=== PATIENT | male | born 1950 | race Caucasian/White ===

== ENCOUNTER 2020-06-13 10:01 | Outpatient (REF) | payer MEDICARE, SELFPAY ==
[2020-06-13 12:16] LABS: PSA,Total (Free>4and<10) 9.25 ng/mL (0.00-4.00)
[2020-06-14 12:57] LABS: Free Prostate Spec Ag 2.2 ng/mL; Percent Free Prostate Spec Ag 23 % (calc) (>25); Prostate Specific Ag Total 9.5 ng/mL (< OR = 4.0)
== END 2020-06-13 10:02 | disposition home or self-care (01) ==
LOC: HO.HMGCLDS 10:01
PROVIDERS: PCP Internal Medicine; Visit Provider Urology
DX: R97.20 Elevated prostate specific antigen [PSA] (principal); Z12.5 Encounter for screening for malignant neoplasm of prostate
CPT/HCPCS: 84153

== ENCOUNTER → 2020-08-15 13:52 | Outpatient (BNVA) | payer MEDICARE, SELFPAY | PROVIDERS: PCP Internal Medicine; Referring Provider Internal Medicine; Visit Provider Internal Medicine | DX: Z13.89 Encounter for screening for other disorder (principal) | CPT/HCPCS: Q3014 ==

== ENCOUNTER 2020-08-19 12:13 | Outpatient (REF) | payer MEDICARE, SELFPAY ==
[2020-08-19 15:40] LABS: Alanine Aminotransferase 16 U/L (0-40); Albumin Level 4.1 g/dL (3.5-5.0); Alkaline Phosphatase 111 U/L (39-117); Anion Gap 13 (12-20); Aspartate Amino Transferase 19 U/L (5-37); Bilirubin Total 0.8 mg/dL (0.0-1.0); Blood Urea Nitrogen 15 mg/dL (9-16); Calcium 9.2 mg/dL (8.4-10.2); Carbon Dioxide 30 mmol/L (22-29); Chloride 99 mmol/L (96-108); Cholesterol 224 mg/dL; Estimated Glomerular Filt Rate > 60; Glucose Random 136 mg/dL (60-115); HDL Cholesterol 40 mg/dL; LDL Cholesterol Calculated 161 mg/dl; Potassium 4.6 mmol/l (3.3-5.1); Sodium 137 mmol/L (135-145); Total Protein 7.4 g/dL (6.5-8.0); Triglycerides 115 mg/dL
[2020-08-19 15:45] LABS: Creatinine Urine 175.28 mg/dL; Microalbum/Creatinine Ratio Ur 152.8 ug/mg cr
[2020-08-19 16:02] LABS: Estimated Average Glucose 217 mg/dL; Hemoglobin A1c % 9.2 %; Vitamin D 25-OH Total 30.6 ng/mL (>30)
[2020-08-20 17:57] LABS: LDL Cholesterol Direct 178 mg/dL (<100)
[2020-08-25 14:42] LABS: Glutamic acid decarboxylase Ab <5 IU/mL (<5)
[2020-08-26 17:22] LABS: Insulinoma associated 2 aatb <5.4 U/mL (<5.4)
[2020-08-26 21:32] LABS: Islet Cell Antibody Screen NEGATIVE (NEGATIVE)
== END 2020-08-19 12:14 | disposition home or self-care (01) ==
LOC: HO.HMGCLDS 12:13
PROVIDERS: PCP Internal Medicine; Visit Provider Internal Medicine
DX: E11.65 Type 2 diabetes mellitus with hyperglycemia (principal); Z79.4 Long term (current) use of insulin; E55.9 Vitamin D deficiency, unspecified
CPT/HCPCS: 36415; 80053; 80061; 82043; 82306; 83036; 83721; 86255; 86341

== ENCOUNTER 2020-09-04 12:12 | Outpatient (REF) | payer MEDICARE, SELFPAY ==
--- NOTE | 2020-09-04 | XR_ITS ---
EXAMINATION: XR ANKLE, LEFT CLINICAL INFORMATION: Left ankle pain following fall/trauma. COMPARISON: None TECHNIQUE: AP, lateral, and mortise views of the left ankle. FINDINGS: There is minimally displaced oblique fracture lateral malleolus with borderline lateral displacement distal fragment. Ankle mortise is symmetric. The posterior and medial malleolus appear intact. No dislocation. There is prominent medial and lateral soft tissue swelling. Subtalar joint is unremarkable. There is a bulky plantar calcaneal spur. XR/XR ankle LT min 3V IMPRESSION: 1. Fracture lateral malleolus. 2. Medial and lateral ankle swelling. 3. Plantar calcaneal spur.
== END 2020-09-04 12:13 | disposition home or self-care (01) ==
LOC: HO.HMGCX 12:12
PROVIDERS: PCP Internal Medicine; Visit Provider Internal Medicine
DX: S99.912A Unspecified injury of left ankle, initial encounter (principal)
CPT/HCPCS: 73610

== ENCOUNTER → 2020-09-05 09:05 | Outpatient (BNVA) | payer MEDICARE, SELFPAY | PROVIDERS: PCP Internal Medicine; Visit Provider Physician Assistant | DX: S82.832A Other fracture of upper and lower end of left fibula, initial encounter for closed fracture (principal) | CPT/HCPCS: 99202 ==

== ENCOUNTER → 2020-09-11 10:21 | Outpatient (BNVA) | payer MEDICARE, SELFPAY | PROVIDERS: PCP Internal Medicine; Visit Provider Urology | DX: Z13.89 Encounter for screening for other disorder (principal) | CPT/HCPCS: Q3014 ==

== ENCOUNTER → 2020-09-13 08:53 | Outpatient (BNVA) | payer MEDICARE, SELFPAY | PROVIDERS: PCP Internal Medicine; Visit Provider Dietitian, Registered | DX: Z76.89 Persons encountering health services in other specified circumstances (principal) ==

== ENCOUNTER 2020-10-09 08:51 | Outpatient (REF) | payer MEDICARE, SELFPAY ==
--- NOTE | ~2020-10-09 | XR_ITS ---
EXAMINATION: XR ANKLE, LEFT CLINICAL INFORMATION: Follow-up lateral malleolar fracture COMPARISON: Left ankle 09/04/2020 TECHNIQUE: AP, lateral, and mortise views of the left ankle. FINDINGS: There is a slowly healing lateral malleolar fracture with mild soft tissue swelling. No additional fractures seen. The ankle mortise and subtalar joints are normal. There is a small calcaneal heel spur. XR/XR ankle LT min 3V IMPRESSION: Lateral malleolar fracture with minimal callus formation. No displacement. Moderate lateral malleolar soft tissue swelling. Small calcaneal heel spur.
== END 2020-10-09 08:52 | disposition home or self-care (01) ==
LOC: HO.HOSX 08:51
PROVIDERS: Visit Provider Physician Assistant
DX: S82.832D Other fracture of upper and lower end of left fibula, subsequent encounter for closed fracture with routine healing (principal); E11.65 Type 2 diabetes mellitus with hyperglycemia; Z79.4 Long term (current) use of insulin; Z79.899 Other long term (current) drug therapy
CPT/HCPCS: 73610; 82947; 99212

== ENCOUNTER → 2020-10-11 09:27 | Outpatient (BNVA) | payer MEDICARE, SELFPAY | PROVIDERS: PCP Internal Medicine; Visit Provider Dietitian, Registered ==

== ENCOUNTER → 2020-11-22 10:02 | Outpatient (BNVA) | payer MEDICARE, SELFPAY | PROVIDERS: PCP Internal Medicine; Visit Provider Dietitian, Registered ==

== ENCOUNTER 2020-11-22 11:24 | Outpatient (REF) | payer MEDICARE, SELFPAY | END 2020-11-22 11:25 | disposition home or self-care (01) | LOC: HO.10HDL 11:24 | PROVIDERS: Visit Provider Urology | DX: R97.20 Elevated prostate specific antigen [PSA] (principal); Z12.5 Encounter for screening for malignant neoplasm of prostate | CPT/HCPCS: 36415; 84153 ==

== ENCOUNTER → 2020-11-27 10:48 | Outpatient (BNVA) | payer MEDICARE, SELFPAY | PROVIDERS: PCP Internal Medicine; Visit Provider Urology | CPT/HCPCS: Q3014 ==

== ENCOUNTER 2020-12-26 13:45 | Outpatient (REF) | payer MEDICARE, SELFPAY ==
[2020-12-26 16:32] LABS: Estimated Average Glucose 148 mg/dL; Hemoglobin A1c % 6.8 %
[2020-12-26 16:48] LABS: Alanine Aminotransferase 17 U/L (0-40); Alkaline Phosphatase 113 U/L (39-117); Anion Gap 17 (12-20); Aspartate Amino Transferase 22 U/L (5-37); Bilirubin Total 0.8 mg/dL (0.0-1.0); Blood Urea Nitrogen 17 mg/dL (9-16); Carbon Dioxide 27 mmol/L (22-29); Chloride 97 mmol/L (96-108); Cholesterol 153 mg/dL; Estimated Glomerular Filt Rate > 60; Glucose Random 246 mg/dL (60-115); HDL Cholesterol 36 mg/dL; LDL Cholesterol Calculated 86 mg/dl; Potassium 4.5 mmol/L (3.3-5.1); Sodium 136 mmol/L (135-145); Triglycerides 159 mg/dL
[2020-12-27 05:31] LABS: LDL Cholesterol Direct 100 mg/dL (<100)
== END 2020-12-26 13:46 | disposition home or self-care (01) ==
LOC: HO.HMGCLDS 13:45
PROVIDERS: PCP Internal Medicine; Visit Provider Internal Medicine
DX: E11.65 Type 2 diabetes mellitus with hyperglycemia (principal); Z79.4 Long term (current) use of insulin
CPT/HCPCS: 36415; 80053; 80061; 83036; 83721

== ENCOUNTER → 2020-12-30 09:18 | Outpatient (BNVA) | payer MEDICARE, SELFPAY | PROVIDERS: PCP Internal Medicine; Visit Provider Internal Medicine | CPT/HCPCS: Q3014 ==

== ENCOUNTER 2021-03-31 09:06 | Outpatient (REF) | payer MEDICARE, SELFPAY ==
[2021-03-31 11:53] LABS: Alanine Aminotransferase 14 U/L (0-40); Albumin Level 4.1 g/dL (3.5-5.0); Alkaline Phosphatase 88 U/L (39-117); Anion Gap 16 (12-20); Aspartate Amino Transferase 17 U/L (5-37); Bilirubin Total 0.9 mg/dL (0.0-1.0); Blood Urea Nitrogen 15 mg/dL (9-16); Calcium 9.4 mg/dL (8.4-10.2); Carbon Dioxide 26 mmol/L (22-29); Chloride 102 mmol/L (96-108); Cholesterol 121 mg/dL; Estimated Glomerular Filt Rate > 60; Glucose Random 110 mg/dL (60-115); HDL Cholesterol 40 mg/dL; LDL Cholesterol Calculated 62 mg/dl; Potassium 4.3 mmol/L (3.3-5.1); Sodium 140 mmol/L (135-145); Total Protein 7.1 g/dL (6.5-8.0); Triglycerides 99 mg/dL
[2021-03-31 11:55] LABS: Estimated Average Glucose 163 mg/dL; Hemoglobin A1c % 7.3 %
[2021-03-31 12:16] LABS: Vitamin D 25-OH Total 39.7 ng/mL (>30)
[2021-03-31 12:26] LABS: Creatinine Urine 246.21 mg/dL; Microalbum/Creatinine Ratio Ur 160.4 ug/mg cr
[2021-04-01 09:36] LABS: LDL Cholesterol Direct 67 mg/dL (<100)
== END 2021-03-31 09:07 | disposition home or self-care (01) ==
LOC: HO.HMGCLDS 09:06
PROVIDERS: PCP Internal Medicine; Visit Provider Internal Medicine
DX: E11.65 Type 2 diabetes mellitus with hyperglycemia (principal); E55.9 Vitamin D deficiency, unspecified; Z79.4 Long term (current) use of insulin
CPT/HCPCS: 36415; 80053; 80061; 82043; 82306; 83036; 83721

== ENCOUNTER → 2021-04-07 08:25 | Outpatient (BNVA) | payer MEDICARE, SELFPAY | PROVIDERS: PCP Internal Medicine; Visit Provider Internal Medicine | DX: E11.65 Type 2 diabetes mellitus with hyperglycemia (principal); E78.5 Hyperlipidemia, unspecified; E55.9 Vitamin D deficiency, unspecified; I10 Essential (primary) hypertension; Z79.4 Long term (current) use of insulin | CPT/HCPCS: 82947; 99212 ==

== ENCOUNTER → 2021-05-13 09:15 | Outpatient (BNVA) | payer MEDICARE, SELFPAY | PROVIDERS: PCP Internal Medicine; Visit Provider Urology | DX: N40.1 Benign prostatic hyperplasia with lower urinary tract symptoms (principal); N13.8 Other obstructive and reflux uropathy; R33.8 Other retention of urine; R97.20 Elevated prostate specific antigen [PSA]; E78.5 Hyperlipidemia, unspecified; E55.9 Vitamin D deficiency, unspecified; I10 Essential (primary) hypertension; E11.9 Type 2 diabetes mellitus without complications | CPT/HCPCS: 51700; 51798; 99212 ==

== ENCOUNTER 2021-05-26 10:43 | Outpatient (REF) | payer MEDICARE, SELFPAY ==
[2021-05-26 15:16] LABS: PSA,Total (Free>4and<10) 7.05 ng/mL (0.00-4.00)
[2021-05-27 12:56] LABS: Percent Free Prostate Spec Ag 20 % (calc) (>25)
== END 2021-05-26 10:44 | disposition home or self-care (01) ==
LOC: HO.10HDL 10:43
PROVIDERS: Visit Provider Urology
DX: Z12.5 Encounter for screening for malignant neoplasm of prostate (principal); N13.8 Other obstructive and reflux uropathy; N40.1 Benign prostatic hyperplasia with lower urinary tract symptoms; R97.20 Elevated prostate specific antigen [PSA]
CPT/HCPCS: 36415; 84153; 84154

== ENCOUNTER 2021-07-22 14:58 | Outpatient (REF) | payer MEDICARE, SELFPAY ==
--- NOTE | ~2021-07-22 | XR_ITS ---
EXAMINATION: XR CHEST CLINICAL INFORMATION: Left-sided chest discomfort COMPARISON: None TECHNIQUE: 2 views of the chest were obtained. 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 Hilar and mediastinal contours are otherwise unremarkable. The lungs are clear. There is no pleural effusion or pneumonia. There are degenerative changes of the spine. There are plates and screws in the sternum and median sternotomy wires. XR/XR chest 2V IMPRESSION: Post-CABG changes. No evidence for acute disease in the chest.
== END 2021-07-22 14:59 | disposition home or self-care (01) ==
LOC: HO.HMGCX 14:58
PROVIDERS: Visit Provider Internal Medicine
DX: R07.89 Other chest pain (principal)
CPT/HCPCS: 71046

== ENCOUNTER → 2021-07-31 08:18 | Outpatient (BNVA) | payer MEDICARE, SELFPAY | PROVIDERS: PCP Internal Medicine; Visit Provider Internal Medicine | DX: E11.65 Type 2 diabetes mellitus with hyperglycemia (principal); E78.5 Hyperlipidemia, unspecified; E55.9 Vitamin D deficiency, unspecified; I10 Essential (primary) hypertension; Z79.4 Long term (current) use of insulin | CPT/HCPCS: 82947; 83036; 99212 ==

== ENCOUNTER 2021-08-12 08:55 | Outpatient (REF) | payer MEDICARE, SELFPAY ==
[2021-08-12 11:57] LABS: Cholesterol 160 mg/dL; HDL Cholesterol 34 mg/dL; LDL Cholesterol Calculated 99 mg/dl; Triglycerides 136 mg/dL
== END 2021-08-12 08:56 | disposition home or self-care (01) ==
LOC: HO.HMGCLDS 08:55
PROVIDERS: PCP Internal Medicine; Visit Provider Internal Medicine
DX: E78.5 Hyperlipidemia, unspecified (principal)
CPT/HCPCS: 36415; 80061

== ENCOUNTER 2021-10-27 08:22 | Outpatient (REF) | payer MEDICARE, SELFPAY ==
[2021-10-27 11:45] LABS: Estimated Average Glucose 180 mg/dL; Hemoglobin A1c % 7.9 %
[2021-10-27 11:48] LABS: Alanine Aminotransferase 11 U/L (0-40); Albumin Level 3.8 g/dL (3.5-5.0); Alkaline Phosphatase 93 U/L (39-117); Anion Gap 12 (12-20); Aspartate Amino Transferase 18 U/L (5-37); Bilirubin Total 0.5 mg/dL (0.0-1.0); Blood Urea Nitrogen 17 mg/dL (9-16); Carbon Dioxide 28 mmol/L (22-29); Chloride 104 mmol/L (96-108); Estimated Glomerular Filt Rate > 60; Glucose Random 148 mg/dL (60-115); Potassium 4.4 mmol/L (3.3-5.1); Sodium 140 mmol/L (135-145); Total Protein 6.8 g/dL (6.5-8.0)
[2021-10-27 12:16] LABS: Creatinine Urine 113.94 mg/dL
== END 2021-10-27 08:23 | disposition home or self-care (01) ==
LOC: HO.HMGCLDS 08:22
PROVIDERS: Visit Provider Internal Medicine
DX: E11.65 Type 2 diabetes mellitus with hyperglycemia (principal); Z79.4 Long term (current) use of insulin
CPT/HCPCS: 36415; 80053; 83036

== ENCOUNTER → 2021-11-03 08:19 | Outpatient (BNVA) | payer MEDICARE, SELFPAY | PROVIDERS: PCP Internal Medicine; Visit Provider Internal Medicine | DX: E11.65 Type 2 diabetes mellitus with hyperglycemia (principal); E78.5 Hyperlipidemia, unspecified; E55.9 Vitamin D deficiency, unspecified; I10 Essential (primary) hypertension; Z79.4 Long term (current) use of insulin | CPT/HCPCS: 82947; 99212 ==

== ENCOUNTER → 2021-11-17 09:23 | Outpatient (BNVA) | payer MEDICARE, SELFPAY | PROVIDERS: PCP Internal Medicine; Visit Provider Registered Nurse Diabetes Educator | DX: E11.65 Type 2 diabetes mellitus with hyperglycemia (principal); Z79.4 Long term (current) use of insulin | CPT/HCPCS: 99211 ==

== ENCOUNTER → 2021-12-29 08:21 | Outpatient (BNVA) | payer MEDICARE, SELFPAY | PROVIDERS: PCP Internal Medicine; Visit Provider Registered Nurse Diabetes Educator | DX: E11.65 Type 2 diabetes mellitus with hyperglycemia (principal); Z79.4 Long term (current) use of insulin | CPT/HCPCS: 99211 ==

== ENCOUNTER 2022-02-13 10:34 | Outpatient (REF) | payer MEDICARE, SELFPAY ==
[2022-02-13 11:38] LABS: Estimated Average Glucose 160 mg/dL; Hemoglobin A1c % 7.2 %
[2022-02-13 12:06] LABS: Alanine Aminotransferase 11 U/L (0-40); Alkaline Phosphatase 85 U/L (39-117); Anion Gap 13 (12-20); Aspartate Amino Transferase 14 U/L (5-37); Bilirubin Total 0.8 mg/dL (0.0-1.0); Blood Urea Nitrogen 13 mg/dL (9-16); Calcium 9.3 mg/dL (8.4-10.2); Carbon Dioxide 27 mmol/L (22-29); Chloride 104 mmol/L (96-108); Cholesterol 152 mg/dL; Estimated Glomerular Filt Rate > 60; Glucose Random 115 mg/dL (60-115); HDL Cholesterol 36 mg/dL; LDL Cholesterol Calculated 95 mg/dl; Potassium 4.5 mmol/L (3.3-5.1); Sodium 139 mmol/L (135-145); Total Protein 7.1 g/dL (6.5-8.0); Triglycerides 108 mg/dL
[2022-02-13 15:58] LABS: Creatinine Urine 86.63 mg/dL
[2022-02-15 17:35] LABS: LDL Cholesterol Direct 103 mg/dL (<100)
== END 2022-02-13 10:35 | disposition home or self-care (01) ==
LOC: HO.HMGCLDS 10:34
PROVIDERS: PCP Internal Medicine; Visit Provider Internal Medicine
DX: E11.65 Type 2 diabetes mellitus with hyperglycemia (principal); Z79.4 Long term (current) use of insulin
CPT/HCPCS: 36415; 80053; 80061; 82043; 83036; 83721

== ENCOUNTER → 2022-02-18 08:25 | Outpatient (BNVA) | payer MEDICARE, SELFPAY | PROVIDERS: PCP Internal Medicine; Visit Provider Internal Medicine | DX: E11.65 Type 2 diabetes mellitus with hyperglycemia (principal); E78.5 Hyperlipidemia, unspecified; I10 Essential (primary) hypertension; E55.9 Vitamin D deficiency, unspecified; Z79.4 Long term (current) use of insulin | CPT/HCPCS: Q3014 ==

== ENCOUNTER → 2022-05-05 08:50 | Outpatient (BNVA) | payer MEDICARE, SELFPAY | PROVIDERS: PCP Internal Medicine; Visit Provider Registered Nurse Diabetes Educator | DX: E11.65 Type 2 diabetes mellitus with hyperglycemia (principal); Z79.4 Long term (current) use of insulin | CPT/HCPCS: 99211 ==

== ENCOUNTER 2022-05-12 08:38 | Outpatient (REF) | payer MEDICARE, SELFPAY ==
[2022-05-12 11:48] LABS: Alanine Aminotransferase 13 U/L (0-40); Albumin Level 3.9 g/dL (3.5-5.0); Alkaline Phosphatase 78 U/L (39-117); Anion Gap 15 (12-20); Aspartate Amino Transferase 15 U/L (5-37); Bilirubin Total 0.7 mg/dL (0.0-1.0); Blood Urea Nitrogen 16 mg/dL (9-16); Calcium 8.9 mg/dL (8.4-10.2); Carbon Dioxide 27 mmol/L (22-29); Chloride 102 mmol/L (96-108); Cholesterol 100 mg/dL; Estimated Glomerular Filt Rate > 60; Glucose Random 108 mg/dL (60-115); HDL Cholesterol 37 mg/dL; LDL Cholesterol Calculated 46 mg/dl; Potassium 4.6 mmol/L (3.3-5.1); Sodium 139 mmol/L (135-145); Triglycerides 88 mg/dL
[2022-05-12 12:11] LABS: Vitamin D 25-OH Total 40.2 ng/mL (>30)
[2022-05-12 12:16] LABS: Estimated Average Glucose 154 mg/dL
[2022-05-14 00:56] LABS: LDL Cholesterol Direct 52 mg/dL (<100)
== END 2022-05-12 08:39 | disposition home or self-care (01) ==
LOC: HO.HMGCLDS 08:38
PROVIDERS: PCP Internal Medicine; Visit Provider Internal Medicine
DX: E11.65 Type 2 diabetes mellitus with hyperglycemia (principal); E55.9 Vitamin D deficiency, unspecified; Z79.4 Long term (current) use of insulin
CPT/HCPCS: 36415; 80053; 80061; 82306; 83036; 83721

== ENCOUNTER → 2022-05-20 13:20 | Outpatient (BNVA) | payer MEDICARE, SELFPAY | PROVIDERS: PCP Internal Medicine; Visit Provider Internal Medicine | DX: E11.65 Type 2 diabetes mellitus with hyperglycemia (principal); E78.5 Hyperlipidemia, unspecified; I10 Essential (primary) hypertension; E55.9 Vitamin D deficiency, unspecified; E04.9 Nontoxic goiter, unspecified; Z79.4 Long term (current) use of insulin; Z79.899 Other long term (current) drug therapy | CPT/HCPCS: 82947; 99212 ==

== ENCOUNTER 2022-05-21 12:53 | Outpatient (REF) | payer MEDICARE, SELFPAY ==
--- NOTE | ~2022-05-21 | US_ITS ---
EXAMINATION: US THYROID CLINICAL INFORMATION: Nontoxic goiter, unspecified. COMPARISON: None TECHNIQUE: Linear transducer grayscale and color Doppler examination with attention to the region of the thyroid. FINDINGS: SIZE: Measurements of the thyroid lobes and nodules are given in sagittal, anteroposterior and transverse dimensions respectively. Right Thyroid Lobe: 5.0 x 2.1 x 1.8 cm, volume 11.4 mL. Parenchyma: The gland echotexture is heterogeneous. Thyroid vascularity is normal. Left Thyroid Lobe: 5.8 x 2.4 x 2.2 cm, volume 15.8 mL. Parenchyma: The gland echotexture is heterogeneous. Thyroid vascularity is normal. Isthmus: 0.5 cm in maximum AP dimension. Estimated total number of nodules greater than or equal to 1 cm: 3. Radio Despatcher nodules are described as follows: 1. Location: Right superior. Size: 0.8 x 0.4 x 0.7 cm, volume 0.1 mL. Nodule characteristics: Composition: Cystic(0). Echogenicity: Anechoic (0). Shape: Not taller than wide (0). Margins: Smooth (0). Echogenic Foci: None (0). ACR TI-RADS total points: 0 ACR TI-RADS category: 1 2. Location: Right mid. Size: 0.9 x 0.7 x 1. cm, volume 0.4 mL. Nodule characteristics: Composition: Mixed cystic and solid (1). Echogenicity: Isoechoic (1). Shape: Not taller than wide (0). Margins: Smooth (0). Echogenic Foci: Punctate echogenic foci (3). ACR TI-RADS total points: 5 ACR TI-RADS category: 4 3. Location: Right mid. Size: 0.9 x 0.6 x 0.9 cm, volume 0.3 mL. Nodule characteristics: Composition: Spongiform (0). Echogenicity: Anechoic (0). Shape: Not taller than wide (0). Margins: Smooth (0). Echogenic Foci: None (0). ACR TI-RADS total points: 0 ACR TI-RADS category: 1 4. Location: Right mid. Size: 1.2 x 0.8 x 1.0 cm, volume 0.5 mL. Nodule characteristics: Composition: Spongiform (0). Echogenicity: Anechoic (0). Shape: Not taller than wide (0). Margins: Smooth (0). Echogenic Foci: None (0). ACR TI-RADS total points: 0 ACR TI-RADS category: 1 5. Location: Left inferior. Size: 1.0 x 0.5 x 0.8 cm, volume 0.2 mL. Nodule characteristics: Composition: Spongiform (0). Echogenicity: Anechoic (0). Shape: Not taller than wide (0). Margins: Smooth (0). Echogenic Foci: None (0). ACR TI-RADS total points: 0 ACR TI-RADS category: 1 NODES: No lymphadenopathy is seen in the tissue surrounding the thyroid gland. US/US thyroid IMPRESSION: 1. Bilateral thyroid nodules are seen, as detailed. 2. There is a diffuse goiter. 3. There is heterogeneous thyroid echotexture, which can be associated with thyroiditis. ACR TI-RADS RECOMMENDATION REFERENCE: Ultrasound-guided fine-needle aspiration, followup ultrasound, no further follow up. * TR1 (0 point) and TR 2 (2 points): No FNA or follow up. * TR3 (3 points): FNA if more than or equal to 2.5 cm in maximum dimension, followup ultrasound in 1, 3 and 5 years if 1.5 to 2.4 cm in maximum dimension. * TR4 (4-6 points): FNA if more than or equal to 1.5 cm in maximum dimension, followup ultrasound in 1, 2, 3 and 5 years if 1 to 1.4 cm in maximum dimension. * TR5 (more than or equal to 7 points): FNA if more than or equal to 1 cm in maximum dimension, followup ultrasound every year for 5 years if 0.5 to 0.9 cm in maximum dimension. * TR3, TR4 or TR5 nodules that are below the size threshold for followup receive no follow up.
== END 2022-05-21 12:54 | disposition home or self-care (01) ==
LOC: HO.HMGCX 12:53
PROVIDERS: PCP Internal Medicine; Visit Provider Internal Medicine
DX: E04.9 Nontoxic goiter, unspecified (principal)
CPT/HCPCS: 76536

== ENCOUNTER → 2022-08-05 08:49 | Outpatient (BNVA) | payer MEDICARE, SELFPAY | PROVIDERS: PCP Internal Medicine; Visit Provider Registered Nurse Diabetes Educator | DX: E11.65 Type 2 diabetes mellitus with hyperglycemia (principal); Z79.4 Long term (current) use of insulin | CPT/HCPCS: 99211 ==

== ENCOUNTER 2022-08-10 09:14 | Outpatient (REF) | payer MEDICARE, SELFPAY ==
[2022-08-10 11:35] LABS: Estimated Average Glucose 160 mg/dL; Hemoglobin A1c % 7.2 %
== END 2022-08-10 09:15 | disposition home or self-care (01) ==
LOC: HO.HMGCLDS 09:14
PROVIDERS: Absent Provider Internal Medicine; PCP Internal Medicine; Visit Provider Internal Medicine
DX: E11.9 Type 2 diabetes mellitus without complications (principal); Z79.4 Long term (current) use of insulin
CPT/HCPCS: 36415; 83036

== ENCOUNTER → 2022-08-14 14:42 | Outpatient (BNVA) | payer MEDICARE, SELFPAY | PROVIDERS: PCP Internal Medicine; Visit Provider Urology | DX: N40.1 Benign prostatic hyperplasia with lower urinary tract symptoms (principal); N13.8 Other obstructive and reflux uropathy; R33.8 Other retention of urine; R97.20 Elevated prostate specific antigen [PSA] | CPT/HCPCS: Q3014 ==

== ENCOUNTER 2022-08-18 08:58 | Outpatient (REF) | payer MEDICARE, SELFPAY ==
[2022-08-18 13:57] LABS: Alanine Aminotransferase 11 U/L (0-40); Albumin Level 4.1 g/dL (3.5-5.0); Alkaline Phosphatase 91 U/L (39-117); Anion Gap 13 (12-20); Aspartate Amino Transferase 14 U/L (5-37); Bilirubin Total 0.6 mg/dL (0.0-1.0); Blood Urea Nitrogen 17 mg/dL (9-16); Calcium 9.7 mg/dL (8.4-10.2); Carbon Dioxide 29 mmol/L (22-29); Chloride 102 mmol/L (96-108); Estimated Glomerular Filt Rate > 60; Free T4 (Free Thyroxine) 0.93 ng/dL (0.71-1.85); Glucose Random 135 mg/dL (60-115); Potassium 4.7 mmol/L (3.3-5.1); Sodium 139 mmol/L (135-145); Thyroid Stimulating Hormone 1.23 uIU/mL (0.32-4.0); Total Protein 7.1 g/dL (6.5-8.0); Vitamin D 25-OH Total 33.6 ng/mL (>30)
[2022-08-18 14:15] LABS: Estimated Average Glucose 163 mg/dL; Hemoglobin A1c % 7.3 %
== END 2022-08-18 08:59 | disposition home or self-care (01) ==
LOC: HO.HMGCLDS 08:58
PROVIDERS: Absent Provider Urology; PCP Internal Medicine; Visit Provider Internal Medicine
DX: E11.65 Type 2 diabetes mellitus with hyperglycemia (principal); E04.9 Nontoxic goiter, unspecified; E55.9 Vitamin D deficiency, unspecified; Z79.4 Long term (current) use of insulin
CPT/HCPCS: 36415; 80053; 82306; 83036; 84439; 84443

== ENCOUNTER → 2022-09-07 12:49 | Outpatient (BNVA) | payer MEDICARE, SELFPAY | PROVIDERS: PCP Internal Medicine; Visit Provider Internal Medicine | DX: E11.65 Type 2 diabetes mellitus with hyperglycemia (principal); E04.2 Nontoxic multinodular goiter; I10 Essential (primary) hypertension; E78.5 Hyperlipidemia, unspecified; E55.9 Vitamin D deficiency, unspecified; Z79.4 Long term (current) use of insulin | CPT/HCPCS: 82947; 99212 ==

== ENCOUNTER 2022-09-10 07:44 | Outpatient (REF) | payer MEDICARE, SELFPAY ==
--- NOTE | 2022-09-10 08:45 | P.BOP_ITS ---
Brief Operative Note Date of Service: 09/10/22 Pre-op diagnosis: Multinodular Thyroid Procedure: This is doctor Karla Link. This is an ultrasound-guided fine-needle aspiration report. Date of Examination: 09/10/2022 Indication: Multinodular Thyroid Porcedure: Procedure was explained to the patient. Alternatives, the risk and benefits were discussed. Written consent was obtained. A time-out was also obtained. After sterile preparation, fine-needle aspiration of a right mid pole 1.3 cm thyroid nodule was performed using direct ultrasound guidance to confirm accurate needle placement. Four aspirations were made using 27 gauge needles. An additional 4 aspirations were made using 25 guage needles. Samples were submitted for cytology. One pass was dedicated for [employer] Gene sequencing weatherization and housing inspector testing. The patient tolerated the procedure well. Aftercare instructions were provided. Impression: Uncomplicated fine needle aspiration biopsy of a right mid pole 1.3 cm thyroid nodule under ultrasound guidance. Surgeon: Karla Link, DO Was an Software Support Technician used for this Procedure?: No Estimated blood loss (mL): 0
[2022-09-10] MEDS: Lidocaine HCl 1 % MPF 5 ML VIAL SUBCUT (11:42)
== END 2022-09-10 07:45 | disposition home or self-care (01) ==
LOC: HO.US 07:44
PROVIDERS: PCP Internal Medicine; Visit Provider Internal Medicine
DX: E04.2 Nontoxic multinodular goiter (principal)
CPT/HCPCS: 10005; 88172; 88173; 88177; 88305

== ENCOUNTER → 2022-09-24 12:22 | Outpatient (BNVA) | payer MEDICARE, SELFPAY | PROVIDERS: PCP Internal Medicine; Visit Provider Internal Medicine | DX: E04.2 Nontoxic multinodular goiter (principal) | CPT/HCPCS: 99212 ==

== ENCOUNTER 2022-12-07 09:35 | Outpatient (REF) | payer MEDICARE, SELFPAY ==
[2022-12-07 11:49] LABS: Alanine Aminotransferase 10 U/L (0-40); Albumin Level 3.9 g/dL (3.5-5.0); Alkaline Phosphatase 87 U/L (39-117); Anion Gap 12 (12-20); Aspartate Amino Transferase 14 U/L (5-37); Bilirubin Total 0.8 mg/dL (0.0-1.0); Blood Urea Nitrogen 16 mg/dL (9-16); Calcium 9.1 mg/dL (8.4-10.2); Carbon Dioxide 29 mmol/L (22-29); Chloride 103 mmol/L (96-108); Cholesterol 123 mg/dL; Estimated Glomerular Filt Rate > 60; Glucose Random 141 mg/dL (60-115); HDL Cholesterol 43 mg/dL; LDL Cholesterol Calculated 58 mg/dl; Potassium 4.6 mmol/L (3.3-5.1); Sodium 139 mmol/L (135-145); Total Protein 6.7 g/dL (6.5-8.0); Triglycerides 114 mg/dL
[2022-12-07 11:50] LABS: Microalbum/Creatinine Ratio Ur 145.3 ug/mg cr
[2022-12-07 11:52] LABS: Estimated Average Glucose 171 mg/dL; Hemoglobin A1c % 7.6 %
[2022-12-07 12:19] LABS: Free T4 (Free Thyroxine) 0.87 ng/dL (0.71-1.85); Thyroid Stimulating Hormone 1.09 uIU/mL (0.32-4.0); Vitamin B12 269 pg/mL (200-900); Vitamin D 25-OH Total 38.6 ng/mL (>30)
[2022-12-08 19:39] LABS: LDL Cholesterol Direct 60 mg/dL (<100)
== END 2022-12-07 09:36 | disposition home or self-care (01) ==
LOC: HO.HMGCLDS 09:35
PROVIDERS: PCP Internal Medicine; Visit Provider Internal Medicine
DX: E11.65 Type 2 diabetes mellitus with hyperglycemia (principal); E04.2 Nontoxic multinodular goiter; E55.9 Vitamin D deficiency, unspecified; Z79.4 Long term (current) use of insulin
CPT/HCPCS: 36415; 80053; 80061; 82043; 82306; 82607; 83036; 83721; 84439; 84443

== ENCOUNTER → 2022-12-09 12:50 | Outpatient (BNVA) | payer MEDICARE, SELFPAY | PROVIDERS: PCP Internal Medicine; Visit Provider Internal Medicine | DX: E11.65 Type 2 diabetes mellitus with hyperglycemia (principal); E78.5 Hyperlipidemia, unspecified; I10 Essential (primary) hypertension; E55.9 Vitamin D deficiency, unspecified; E04.2 Nontoxic multinodular goiter; M79.89 Other specified soft tissue disorders; Z79.4 Long term (current) use of insulin | CPT/HCPCS: 82947; 99212 ==

== ENCOUNTER → 2023-01-26 11:17 | Outpatient (BNVA) | payer MEDICARE, SELFPAY | PROVIDERS: PCP Internal Medicine; Visit Provider Surgery Vascular Surgery | DX: M79.605 Pain in left leg (principal); I73.00 Raynaud's syndrome without gangrene | CPT/HCPCS: 99202 ==

== ENCOUNTER 2023-02-16 11:23 | Outpatient (REF) | payer MEDICARE, SELFPAY ==
[2023-02-16 15:55] LABS: PSA,Total (Free>4and<10) 2.64 ng/mL (0.00-4.00)
== END 2023-02-16 11:24 | disposition home or self-care (01) ==
LOC: HO.HMGCLDS 11:23
PROVIDERS: PCP Internal Medicine; Visit Provider Urology
DX: R97.20 Elevated prostate specific antigen [PSA] (principal); Z12.5 Encounter for screening for malignant neoplasm of prostate
CPT/HCPCS: 36415; 84153

== ENCOUNTER 2023-02-24 13:37 | Outpatient (AMB) | payer MEDICARE, SELFPAY ==
--- NOTE | 2023-02-24 14:02 | A.OFFVIS_ITS ---
Intake Intake Visit Reasons: 6m follow up/PSA/? hydrocele(set) Intake Note: Patient present for follow up BPH Urology Medications: finasteride Blood Thinner: aspirin PVR: 7ml's Principal Java Developer Required: No Accompanied by: Self / Same As Patient Allergies terazosin Allergy (Unknown, Verified 03/29/23 08:29) rash NSAIDS (Non-Steroidal Anti-Inflamma Adverse Reaction (Intermediate, Verified 03/29/23 08:29) stomach bleed semaglutide [From Ozempic] Adverse Reaction (Mild, Verified 03/29/23 08:29) Diarrhea Ugtgxdq-IBO-FhR Reductase Inhibitor Adverse Reaction (Mild, Verified 03/29/23 08:29) Back Pain lantus Adverse Reaction (Mild, Uncoded 03/29/23 08:29) Weakness HPI HPI Comments History of Present Illness Details Edin is a pleasant male. He is a patient of Dr. Lee. Seen for the following urologic conditions - lower urinary tract symptoms - elevated PSA - urinary retention Reports hydrocele Present on left side He would like intervention PSA 2.6 PSA to be repeated Continue with combination finasteride and alpha-alia PSA now and 6 months Lower urinary tract symptoms with elevated PSA Improvement with urination Prostate procedure - prior laser TURP Therapy - finasteride, silodosin Concurrent diagnoses include urinary retention, attack, diabetes within insulin Variable PSA PSA 11/17 8.2, 05/20 5.0 23%F, 02/19 2.6 Prostate biopsy - 2 prior negative biopsies Therapeutic plan continue PSA surveillance PFSH Medical History Elevated PSA Goiter HLD (hyperlipidemia) HTN (hypertension) Left leg swelling Multinodular thyroid T2DM (type 2 diabetes mellitus) Vitamin D deficiency Surgical History H/O heart artery stent History of prostate surgery Hx of heart bypass surgery Family History Father No problems noted. Mother No problems noted. Social History Household Members: None Alcohol intake: current Alcohol intake frequency: holidays/special occasions only Patient Tobacco Use Status: Never used Tobacco Review of Systems Const Denies chills and Denies fever(s) Card Reports no additional complaints and Denies syncope Resp Denies cough GI Denies abdominal pain and Denies heartburn Reports as per HPI and Denies change in libido Neuro Denies syncope Psych Denies change in libido Endo Denies change in libido Physical Exam Const General: cooperative, healthy appearing, comfortable and no acute distress Orientation/consciousness: patient oriented x3 HEENT Face and sinus: Yes normal facial exam Mouth: moist mucous membranes Neck Neck: Yes normal visual inspection, Yes full ROM and Yes trachea midline Chest Chest palpation & inspection: normal inspection of the chest Resp Effort & Inspection: normal respiratory effort, able to speak in complete sentences and no respiratory distress GI Inspection: Yes normal to inspection Back/Spine/Pelvis Cervical Spine: normal cervical lordosis Thoracic/Lumbar Spine: thoracic and lumbar spine normal to inspection Skin General skin exam: no rashes or lesions noted Neuro General: patient oriented x3, gait normal, tone normal and moves all extremities Extrem General: Yes normal to inspection and Yes capillary refill normal Office Procedures Post Void Residual Post Residual Void Post Void Residual (PVR): 7 [id number] Void Residual by ultrasound Results AMB Urinalysis, Automated UA Leukoctes 0 Cali/uL Last Edit by [employer] on 02/24/23 14:13 UA Nitrite Negative Last Edit by [employer] on 02/24/23 14:13 UA Urobilinogen 0.2 mg/dL Last Edit by [employer] on 02/24/23 14:13 UA Protein 15 mg/dL Last Edit by [employer] on 02/24/23 14:13 UA pH 5.5 Last Edit by [employer] on 02/24/23 14:13 UA Blood 10 Kaleb/uL Last Edit by [employer] on 02/24/23 14:13 UA Specific [place] 1.015 Last Edit by [employer] on 02/24/23 14:13 UA Ketone Negative Last Edit by [employer] on 02/24/23 14:13 UA Bilirubin 0 mg/dL Last Edit by [employer] on 02/24/23 14:13 UA Glucose 1000 mg/dL Last Edit by [employer] on 02/24/23 14:13 Results Reviewed Results Reviewed: Laboratory Last Values Urine pH (Auto) 5.5 02/24/23 14:06 Specific [place] (Auto) 1.015 02/24/23 14:06 Urine Protein (Auto) 15 mg/dL 02/24/23 14:06 Glucose (UA)(Auto) 1000 mg/dL 02/24/23 14:06 Urine Ketones (Auto) Negative 02/24/23 14:06 Urine Blood (Auto) 10 Kaleb/uL 02/24/23 14:06 Urine Nitrite (Auto) Negative 02/24/23 14:06 Urine Bilirubin (Auto) 0 mg/dL 02/24/23 14:06 Urine Urobilinogen (Auto) 0.2 mg/dL 02/24/23 14:06 Leukocyte Esterase (Auto) 0 Cali/uL 02/24/23 14:06 Assessment & Plan Assessment & Plan (1) BPH w urinary obs/LUTS: Code(s): N40.1 - Benign prostatic hyperplasia with lower urinary tract symptoms; N13.8 - Other obstructive and reflux uropathy (2) Elevated PSA: Code(s): R97.20 - Elevated prostate specific antigen [PSA] Plan Risks, benefits and alternatives to therapy were discussed. These include but are not limited to infection, bleeding, damage to local organs and tissues, need for further interventions. Anesthetic risks regarding cardiac arrhythmia, blood clots, and potential mortality were discussed. The patient understands the typical recovery time and the outpatient nature of the procedure. After consideration of these risks the patient gives full informed consent and they wish to move ahead with the procedure. Left hydrocelectomy Orders: Orders AMB Urinalysis Automated 02/24/23 Z13.9 - Encounter for screening, unspecified AMB Post Void Residual by ultrasound 02/24/23 N40.1 - Benign prostatic hyperplasia with lower urinary tract symptoms, N13.8 - Other obstructive and reflux uropathy Patient Instructions: Imaging studies, laboratory and physical exam results were discussed and reviewed in detail. No major barriers to patient understanding were identified. An opportunity to ask questions regarding the treatment plan was provided. All questions were answered. The patient expressed understanding and agreement with the above treatment plan. The patient is aware they should contact our office by phone for worsening of their current condition or the appearance of new urologic symptoms. Compliance is encouraged with any medications and followup testing that is ordered. It is a privilege to participate in the urologic care of your patient. If you have any questions or concerns regarding treatment for the above conditions, or other urologic issues, please do not hesitate to contact me. The office telephone contact is [phone]. This note is constructed using voice recognition software. While every effort has been made to ensure accuracy director of respiratory therapy errors may have been included. Yours sincerely, Dr Oscar Irby MD, [facility] - Urology Providers of Expert, Compassionate Care for the Genitourinary System Coding Level of Care Code Est Pt Level 4 (33913) Diagnoses BPH w urinary obs/LUTS N40.1; N13.8 Elevated PSA R97.20 CPT Codes Post Residual Void - PVR CPT Code: 22773-[id number] Void Residual by ultrasound ([id number])
== END 2023-02-24 14:25 | disposition home or self-care (01) ==
PROVIDERS: Visit Provider Urology
DX: N40.1 Benign prostatic hyperplasia with lower urinary tract symptoms (principal); N13.8 Other obstructive and reflux uropathy; R97.20 Elevated prostate specific antigen [PSA]
CPT/HCPCS: 99214

== ENCOUNTER → 2023-02-24 13:37 | Outpatient (BNVA) | payer MEDICARE, SELFPAY | PROVIDERS: Visit Provider Urology | DX: N40.1 Benign prostatic hyperplasia with lower urinary tract symptoms (principal); N13.8 Other obstructive and reflux uropathy; R33.9 Retention of urine, unspecified; E11.9 Type 2 diabetes mellitus without complications; Z79.82 Long term (current) use of aspirin; Z79.4 Long term (current) use of insulin; Z79.899 Other long term (current) drug therapy | CPT/HCPCS: 51798; 99212 ==

== ENCOUNTER 2023-03-17 09:26 | Outpatient (AMB) | payer MEDICARE, SELFPAY ==
--- NOTE | 2023-03-17 10:09 | MHC.AMDMED ---
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 Accompanied by: Self / Same As Patient Allergies terazosin Allergy (Unknown, Verified 02/24/23 14:05) rash NSAIDS (Non-Steroidal Anti-Inflamma Adverse Reaction (Intermediate, Verified 02/24/23 14:05) stomach bleed semaglutide [From Ozempic] Adverse Reaction (Mild, Verified 02/24/23 14:05) Diarrhea Mfssqqc-VYV-NtX Reductase Inhibitor Adverse Reaction (Mild, Verified 02/24/23 14:05) Back Pain lantus Adverse Reaction (Mild, Uncoded 02/24/23 14:05) Weakness Do you need a note to return to daycare/school/sports/work: No HPI Comprehensive Diabetes Asmnt General Diabetes type type 2 Most Recent Diabetes Results: Microalb/Creat Ratio 145.3 ug/mg cr 12/07/22 Cholesterol 123 mg/dL 12/07/22 HDL Cholesterol 43 mg/dL 12/07/22 Triglycerides 114 mg/dL 12/07/22 Creatinine 1.08 mg/dL (0.5-1.4) 12/07/22 Blood Urea Nitrogen 16 mg/dL (9-16) 12/07/22 Sodium 139 mmol/L (135-145) 12/07/22 Potassium 4.6 mmol/L (3.3-5.1) 12/07/22 Chloride 103 mmol/L (96-108) 12/07/22 Carbon Dioxide 29 mmol/L (22-29) 12/07/22 Calcium 9.1 mg/dL (8.4-10.2) 12/07/22 AST 14 U/L (5-37) 12/07/22 ALT 10 U/L (0-40) 12/07/22 Total Protein 6.7 g/dL (6.5-8.0) 12/07/22 Albumin 3.9 g/dL (3.5-5.0) 12/07/22 [facility] Medical History Elevated PSA Goiter HLD (hyperlipidemia) HTN (hypertension) Left leg swelling Multinodular thyroid T2DM (type 2 diabetes mellitus) Vitamin D deficiency Surgical History H/O heart artery stent History of prostate surgery Hx of heart bypass surgery Family History Father No problems noted. Mother No problems noted. Social History Household Members: None Alcohol intake: current Alcohol intake frequency: holidays/special occasions only Patient Tobacco Use Status: Never used Tobacco Assessment & Plan Assessment & Plan (1) T2DM (type 2 diabetes mellitus): Code(s): E11.9 - Type 2 diabetes mellitus without complications Qualifiers: Diabetes mellitus penitentiary insulin use: with oysterman use Diabetes mellitus complication status: with hyperglycemia Qualified Code(s): E11.65 - Type 2 diabetes mellitus with hyperglycemia; Z79.4 - oysterman (current) use of insulin Plan: Learning objectives: The patient was provided with verbal and written education on the following topics as outlined below. The patient met all learning objectives and was able to verbalize understanding and provide teach back of education topics discussed . The patient was provided with the opportunity to ask questions and all questions were answered. Patient Assessment Assess patient education level/literacy/barriers Patient questions/concerns, patient reports he recently stopped Tresiba 52 units due to feelings of weakness. Reviewed patient's glucose data, or multiple hypoglycemic events prior to patient's stopping Tresiba. Discussed with patient the weakness could be a symptom of actual hypoglycemia. Patient reports he checked his glucose the time of some of the hypoglycemic events and glucometer readings were 10-20 points higher. He is currently using Humalog sliding scale before meals. But feels this could also be contributing to his weakness. Patient stated that Humalog causes his glucose to increase. Discussed patient that when he takes Humalog before meals in his most likely the food that he is eating that caused the increase in glucose levels. Reviewed with patient action of Humalog, and Tresiba. Encourage patient to discuss his concerns about side effects from Tresiba with Dr. Martinez at their visit on 03/29/2023 Brief overview of Diabetes Management Monitoring blood sugar Following a meal plan Regular exercise Maintaining a healthy weight Taking medication as needed Members of the care team (PCP, RN, MA, RD, CDE, glue jointer feeder) Blood glucose monitoring When/how often to test Target blood sugar ranges Patient leave using Buck 2 sensor for glucose monitor Patient's average glucose the past 2 weeks 160 mg/dL Impression above target 33% Patient at target 64% Patient below target 4% Room patient believes that some of the hypoglycemic events were not true hypoglycemic events cause he used his meter to confirm glucose at the time of alarm Introduction to Nutrition Importance of healthy diet in managing DM Diet is personalized to individual preference Review patient?s regular diet/food preferences Who prepares meals/does food shopping/ Dining out?/ Barriers? How diet effects glucose Eating 3 balanced meals a day with small, healthy snacks between meals Review food groups Carbohydrates: What is a carbohydrate/Which food/food groups are considered carbohydrates Effect of carbohydrates on blood glucose Portion sizes Reading food labels Basic carb counting (if applicable per nursing assessment) Plate method Meal planning Recommendations: Follow plate method, consistent carbs and read nutritional labels. Smart Goal: Educational Materials: The patient was provided with the following written educational materials: Planning Healthy Meals Handout Patient Response to instructions: Comprehension of Instructions: Fair Readiness to make changes: Contemplation How confident they feel about making changes: Positive Patient Instructions: Test blood sugar as directed; Fasting and 2hpp largest meal. Watch trends in results. Utilize results and to assess how food, physical activity and medications affect blood sugar results. Bring glucometer or CGM to next visit. Be knowledgeable about diabetes medication, its action, side effects, efficacy, toxicity, prescribed dosage, appropriate timing and frequency of administration, effect of missed and delayed doses and instructions for storage, travel and safety. If sensor acute issue low alert and you are not experiencing hypoglycemic symptoms please use blood glucose meter to confirm glucose readings Patient will follow-up with Diabetes Education nurse in 3 months Coding Level of Care Code Est Pt Level 1 (46427) Diagnoses T2DM (type 2 diabetes mellitus) E11.65; Z79.4 Diabetes mellitus penitentiary insulin use: with penitentiary use Diabetes mellitus complication status: with hyperglycemia
== END 2023-03-17 10:14 | disposition home or self-care (01) ==
PROVIDERS: PCP Internal Medicine; Visit Provider Registered Nurse Diabetes Educator
DX: E11.65 Type 2 diabetes mellitus with hyperglycemia (principal); Z79.4 Long term (current) use of insulin

== ENCOUNTER → 2023-03-17 09:26 | Outpatient (BNVA) | payer MEDICARE, SELFPAY | PROVIDERS: Visit Provider Registered Nurse Diabetes Educator | DX: E11.65 Type 2 diabetes mellitus with hyperglycemia (principal); Z79.4 Long term (current) use of insulin | CPT/HCPCS: 99211 ==

== ENCOUNTER 2023-03-23 09:23 | Outpatient (REF) | payer MEDICARE, SELFPAY ==
[2023-03-23 12:08] LABS: Estimated Average Glucose 183 mg/dL
[2023-03-23 13:29] LABS: Alanine Aminotransferase 11 U/L (0-40); Albumin Level 3.9 g/dL (3.5-5.0); Alkaline Phosphatase 81 U/L (39-117); Anion Gap 11 (12-20); Aspartate Amino Transferase 14 U/L (5-37); Bilirubin Total 0.6 mg/dL (0.0-1.0); Blood Urea Nitrogen 16 mg/dL (9-16); Calcium 9.3 mg/dL (8.4-10.2); Carbon Dioxide 28 mmol/L (22-29); Chloride 103 mmol/L (96-108); Estimated Glomerular Filt Rate > 60; Free T4 (Free Thyroxine) 0.84 ng/dL (0.71-1.85); Glucose Random 112 mg/dL (60-115); Potassium 4.3 mmol/L (3.3-5.1); Sodium 138 mmol/L (135-145); Thyroid Stimulating Hormone 1.06 uIU/mL (0.32-4.0); Total Protein 7.1 g/dL (6.5-8.0)
== END 2023-03-23 09:24 | disposition home or self-care (01) ==
LOC: HO.HMGCLDS 09:23
PROVIDERS: PCP Internal Medicine; Visit Provider Internal Medicine
DX: E11.65 Type 2 diabetes mellitus with hyperglycemia (principal); E04.2 Nontoxic multinodular goiter; Z79.4 Long term (current) use of insulin
CPT/HCPCS: 36415; 80053; 83036; 84439; 84443

== ENCOUNTER 2023-03-29 08:07 | Outpatient (AMB) | payer MEDICARE, SELFPAY ==
--- NOTE | 2023-03-29 08:08 | MHC.OFFVIS ---
Intake Intake Visit Reasons: T2DM Allergies terazosin Allergy (Unknown, Verified 03/29/23 08:29) rash NSAIDS (Non-Steroidal Anti-Inflamma Adverse Reaction (Intermediate, Verified 03/29/23 08:29) stomach bleed semaglutide [From Ozempic] Adverse Reaction (Mild, Verified 03/29/23 08:29) Diarrhea Fzxmyoi-LAA-GfF Reductase Inhibitor Adverse Reaction (Mild, Verified 03/29/23 08:29) Back Pain lantus Adverse Reaction (Mild, Uncoded 03/29/23 08:29) Weakness Medication List - Last Reconciled 03/29/23 by Karla Link DO alirocumab (Praluent Pen) 150 mg subcut Q2W 4 weeks aspirin 81 mg PO DAILY blood sugar diagnostic As directed empagliflozin (Jardiance) 25 mg PO DAILY 30 days finasteride 5 mg PO DAILY 90 days flash glucose scanning reader (FreeStyle Buck 14 Day Mingus) As directed flash glucose sensor (FreeStyle Buck 14 Day Sensor kit) As directed insulin degludec 52 units (0.52 mL) subcut DAILY 30 days insulin lispro Sliding scale 4-8 subcut 3 times a day; lancets As directed metformin ER 500 mg PO BID 30 days metoprolol tartrate 50 mg PO BID pen needle, diabetic As directed 4 times a day sacubitril-valsartan 24-26 mg (Entresto) 1 tab PO BID silodosin 8 mg PO BEDTIME 90 days HPI HPI Comments History of Present Illness Details 72 YO M with PMHx T2DM who is seen in F/U for T2DM. Initially diagnosed with T2DM in 2009. Was initially started on treatment with Metformin, but this was shortly thereafter stopped for unknown reasons. He was then switched to insulin and has remained on Insulin since 2015. We resumed him on Metformin, but he stopped this of his own accord. Current regimen Metformin 500 mg PO BID, Jardiance 25 mg PO daily. Tresiba 52 units daily. He stopped the humalog of his own accord. He reports Humalog was leading ot muscle aches, which have now resolved. Currently using CGM Freestyle Buck. 14 days of data was downloaded and interpreted from 03/04/2023 through 03/17/2023. This reveals an average sugar of 160, with CV 32.6% and GMI 7.1%. He is at goal 64% of the time, above goal 32% of the time and below goal 4% of the time. He is having frequent hypoglycemia. He has been self adjusting his insulins. He does check a finger stick at the time of hypoglycemia on his CGM, and these are correlating. Reports rare hypoglycemia. Has symptoms of hypoglycemia with anything <90 with sweats. Treats lows with rapid sugar. Does not always check sugar after to ensure it is rising. Is aware of the rule of 15's to treat low sugars. Most recent A1C: 8.0% 03/23/2023, 7.6% 12/07/2022, up from 7.3% 08/18/2022. Denies a Family history of T2DM. Has eyes checked yearly, last eye exam 07/07/2022. Has mild retinopathy. Does report neuropathy. Has nephropathy, on entresto BID. Had a cough with Lisinopril. UAC 145.3 12/07/2022. Prescribed Losartan but had side effects with this so stopped. Has HLD, not on statin. Has trialed 3 statins, but developed rhabdomyolosis with this. Now on Praluent 150 mg q 2 weeks. LDL 60 12/07/2022. Has CAD. Diet: Does not count carbohydrates. Weight: Stable. Is attending diabetes education. Had a thyroid US which revealed multiple bilateral thyroid nodules. He underwent FNA biopsy of his RMP 1.3 cm thyroid nodule 09/10/2022 with nondiagnostic results.? Thyroid US: 05/21/2022 Right Thyroid Lobe: 5.0 x 2.1 x 1.8 cm, volume 11.4 mL. Parenchyma: The gland echotexture is heterogeneous. Thyroid vascularity is normal. Left Thyroid Lobe: 5.8 x 2.4 x 2.2 cm, volume 15.8 mL. Parenchyma: The gland echotexture is heterogeneous. Thyroid vascularity is normal. Isthmus: 0.5 cm in maximum AP dimension. Estimated total number of nodules greater than or equal to 1 cm: 3. Ladle Pourer nodules are described as follows: 1. Location: Right superior. ?? ? Size: 0.8 x 0.4 x 0.7 cm, volume 0.1 mL. ?? ? Nodule characteristics: ?? ? Composition: Cystic(0). ?? ? Echogenicity: Anechoic (0). ?? ? Shape: Not taller than wide (0). ?? ? Margins: Smooth (0). ?? ? Echogenic Foci: None (0). ?? ? ACR TI-RADS total points: 0 ?? ? ACR TI-RADS category: 1 2. Location: Right mid. ?? ? Size: 0.9 x 0.7 x 1. cm, volume 0.4 mL. ?? ? Nodule characteristics: ?? ? Composition: Mixed cystic and solid (1). ?? ? Echogenicity: Isoechoic (1). ?? ? Shape: Not taller than wide (0). ?? ? Margins: Smooth (0). ?? ? Echogenic Foci: Punctate echogenic foci (3). ?? ? ACR TI-RADS total points: 5 ?? ? ACR TI-RADS category: 4 3. Location: Right mid. ?? ? Size: 0.9 x 0.6 x 0.9 cm, volume 0.3 mL. ?? ? Nodule characteristics: ?? ? Composition: Spongiform (0). ?? ? Echogenicity: Anechoic (0). ?? ? Shape: Not taller than wide (0). ?? ? Margins: Smooth (0). ?? ? Echogenic Foci: None (0). ?? ? ACR TI-RADS total points: 0 ?? ? ACR TI-RADS category: 1 4. Location: Right mid. ?? ? Size: 1.2 x 0.8 x 1.0 cm, volume 0.5 mL. ?? ? Nodule characteristics: ?? ? Composition: Spongiform (0). ?? ? Echogenicity: Anechoic (0). ?? ? Shape: Not taller than wide (0). ?? ? Margins: Smooth (0). ?? ? Echogenic Foci: None (0). ?? ? ACR TI-RADS total points: 0 ?? ? ACR TI-RADS category: 1 5.? Location: Left inferior. ?? ? Size: 1.0 x 0.5 x 0.8 cm, volume 0.2 mL. ?? ? Nodule characteristics: ?? ? Composition: Spongiform (0). ?? ? Echogenicity: Anechoic (0). ?? ? Shape: Not taller than wide (0). ?? ? Margins: Smooth (0). ?? ? Echogenic Foci: None (0). ?? ? ACR TI-RADS total points: 0 ?? ? ACR TI-RADS category: 1 NODES: No lymphadenopathy is seen in the tissue surrounding the thyroid gland. Labs: Laboratory Tests 03/23/23 03/23/23 09:34 09:34 Creatinine 0.96 Estimated GFR > 60 Hemoglobin A1c % 8.0 AST 14 ALT 11 TSH 1.06 Free T4 0.84 PFSH Medical History Elevated PSA Goiter HLD (hyperlipidemia) HTN (hypertension) Left leg swelling Multinodular thyroid T2DM (type 2 diabetes mellitus) Vitamin D deficiency Surgical History H/O heart artery stent History of prostate surgery Hx of heart bypass surgery Family History Father No problems noted. Mother No problems noted. Social History Household Members: None Alcohol intake: current Alcohol intake frequency: holidays/special occasions only Patient Tobacco Use Status: Never used Tobacco Assessment & Plan Assessment & Plan (1) T2DM (type 2 diabetes mellitus): Code(s): E11.9 - Type 2 diabetes mellitus without complications Qualifiers: Diabetes mellitus fci insulin use: with fci use Diabetes mellitus complication status: with hyperglycemia Qualified Code(s): E11.65 - Type 2 diabetes mellitus with hyperglycemia; Z79.4 - watermaster (current) use of insulin Plan: Patient with T2DM. Having frequent hypoglycemia. Will decrease his Tresiba to 45 units daily, and he will remain off the humalog. His remaining meds will stay the same. I did advise that if sugars are running high or low he should notify us, and should not be self adjusting his insulins. He verbalizes understanding. Goal A1C is <8.0. All of his questions were answered. He is in agreement with this plan of care. The importance of adherence to prescribed regimen was discussed with the patient including checking finger sticks 3-4 times per day, using medication as prescribed, monitoring for hypoglycemia and treating any episode of hypoglycemia according to the rule of 15's. The signs and symptoms of hypoglycemia were reviewed in detail, as well as the rule of 15's to treat. Proper foot care was also discussed with the patient, and the importance of yearly dilated eye exam. The patient was asked to have copy of eye exam sent to our office for review. I spent 20 minutes in reviewing the record, seeing the patient and documenting in the medical record, including 5 minutes on the phone with the Patient. (2) HLD (hyperlipidemia): Code(s): E78.5 - Hyperlipidemia, unspecified Qualifiers: Hyperlipidemia type: unspecified Qualified Code(s): E78.5 - Hyperlipidemia, unspecified Plan: He has a history of HLD and CAD with a prior IL. He is allergic to statins and unable to tolerate them. He is on Praluent 150 mg once every 2 weeks currently and LDL is at goal. Will continue. (3) HTN (hypertension): Code(s): I10 - Essential (primary) hypertension Qualifiers: Hypertension type: unspecified Qualified Code(s): I10 - Essential (primary) hypertension Plan: UAC is elevated. Did not tolerate lisiopril or losartan. Now on entresto. Managed by nephrology. Will defer management. (4) Vitamin D deficiency: Code(s): E55.9 - Vitamin D deficiency, unspecified Plan: Vitamin D at goal. No supplement indicated. (5) Multinodular thyroid: Code(s): E04.2 - Nontoxic multinodular goiter Plan: Patient underwent FNA 09/10/2022 of his RMP 1.3 cm thyroid nodule with nondiagnostic results.? We reviewed that there may be cancer contained within this nodule, but we are unable to determine that at this time without FNA results.? We reviewed that without diagnosis and treatment, if cancer is present it can grow and spread which can be fatal.? He verbalizes understanding.? We reviewed options of repeat FNA vs thyroidectomy vs continued surveillance.? He has opted for continued yearly surveillance of his thyroid nodule without repeat FNA at this time. He will be due for a repeat thyroid US in Aug 2023. Telehealth Telehealth Location of provider rendering services: practice address Location of patient: address on file Patient Identification confirmed using: Name, : Yes Telehealth method: voice only Patient verbally consented to treatment: Yes Patient verbally consented to billing insurance company: Yes Patient informed of any privacy concerns related to visit: Yes Coding Level of Care Code Tele Est Pt Level 3 (16103) Diagnoses T2DM (type 2 diabetes mellitus) E11.65; Z79.4 Diabetes mellitus intermediate manager insulin use: with intermediate manager use Diabetes mellitus complication status: with hyperglycemia HLD (hyperlipidemia) E78.5 Hyperlipidemia type: unspecified HTN (hypertension) I10 Hypertension type: unspecified Vitamin D deficiency E55.9 Multinodular thyroid E04.2
== END 2023-03-29 08:40 | disposition home or self-care (01) ==
LOC: HO.ENCR 08:07
PROVIDERS: PCP Internal Medicine; Visit Provider Internal Medicine
DX: E11.65 Type 2 diabetes mellitus with hyperglycemia (principal); Z79.4 Long term (current) use of insulin; I10 Essential (primary) hypertension; E55.9 Vitamin D deficiency, unspecified; E04.2 Nontoxic multinodular goiter; E78.5 Hyperlipidemia, unspecified
CPT/HCPCS: 95251; 99441

== ENCOUNTER → 2023-03-29 08:07 | Outpatient (BNVA) | payer MEDICARE, SELFPAY | PROVIDERS: PCP Internal Medicine; Visit Provider Internal Medicine ==

== ENCOUNTER 2023-06-16 11:15 | Outpatient (AMB) | payer MEDICARE, SELFPAY ==
--- NOTE | 2023-06-16 11:52 | A.OFFVIS_ITS ---
Intake Intake Visit Reasons: H&P (hydrocele 06/21) Intake Note: Patient present for follow up H&Pm(Hydrocele) Urology Medications: finasteride Blood Thinner: aspirin Kiosk Sales Representative Required: No Accompanied by: Self / Same As Patient Allergies terazosin Allergy (Mild, Verified 06/16/23 11:53) rash NSAIDS (Non-Steroidal Anti-Inflamma Adverse Reaction (Severe, Verified 06/16/23 11:53) stomach bleed semaglutide [From Ozempic] Adverse Reaction (Severe, Verified 06/16/23 11:53) Diarrhea Hdqrkvf-WGT-EoM Reductase Inhibitor Adverse Reaction (Severe, Verified 06/16/23 11:53) Back Pain insulin glargine [From TouVolpito SoloStar U-300 Insulin] Adverse Reaction (Mild, Verified 06/16/23 11:53) Weakness lantus Adverse Reaction (Intermediate, Uncoded 06/16/23 11:53) Weakness HPI HPI Comments History of Present Illness Details Edin is a pleasant male. He is a patient of Dr. Lee. Seen for the following urologic conditions - lower urinary tract symptoms - elevated PSA - urinary retention Telemedicine Evaluation 15 min Consultation [employer] Planning for left hydrocelectomy Discussed post procedure course PSA 2.6 - fell with finasteride Will continue Lower urinary tract symptoms with elevated PSA Improvement with urination Prostate procedure - prior laser TURP Therapy - finasteride, silodosin Concurrent diagnoses include urinary retention, attack, diabetes within insulin Variable PSA PSA 11/17 8.2, 05/20 5.0 23%F, 02/19 2.6 Prostate biopsy - 2 prior negative biopsies Therapeutic plan continue PSA surveillance [facility] Medical History (Updated 06/16/23 @ 13:49 by Oscar Irby MD) Ischemic cardiomyopathy CAD (coronary artery disease) Left leg swelling Multinodular thyroid Goiter Elevated PSA Vitamin D deficiency HLD (hyperlipidemia) HTN (hypertension) T2DM (type 2 diabetes mellitus) Surgical History Hx of heart bypass surgery History of prostate surgery H/O heart artery stent Family History Father No problems noted. Mother No problems noted. Social History (Updated 05/20/23 @ 10:33 by Maria Isabel Peace RN) Household Members: None Housing: House Are you a primary critical care rn to a significant other at home: No Do you presently have visiting nurse or other home services: No 75 years or older and lives alone: Yes Alcohol intake: current Alcohol intake frequency: holidays/special occasions only Patient Tobacco Use Status: Never used Tobacco Review of Systems Const All systems reviewed & are unremarkable except as noted in HPI and below Reports no additional complaints Resp Reports no additional complaints GI Reports no additional complaints Reports as per HPI Musc Reports no additional complaints Physical Exam Telemedicine evaluation Appropriate responses Regular breathing rate and rhythm HEENT Head: Yes normal to inspection Ears: hearing grossly normal bilaterally Eyes General: appearance normal, both eyes and all related structures Neck Neck: Yes normal visual inspection Chest Chest palpation & inspection: normal inspection of the chest Resp Effort & Inspection: normal respiratory effort and able to speak in complete sentences Assessment & Plan Assessment & Plan (1) Hydrocele: Code(s): N43.3 - Hydrocele, unspecified Qualifiers: Hydrocele type: unspecified Qualified Code(s): N43.3 - Hydrocele, unspecified Plan Risks, benefits and alternatives to therapy were discussed. These include but are not limited to infection, bleeding, damage to local organs and tissues, need for further interventions. Anesthetic risks regarding cardiac arrhythmia, blood clots, and potential mortality were discussed. The patient understands the typical recovery time and the outpatient nature of the procedure. After consideration of these risks the patient gives full informed consent and they wish to move ahead with the procedure. left hydrocele Patient Instructions: Imaging studies, laboratory and physical exam results were discussed and reviewed in detail. No major barriers to patient understanding were identified. An opportunity to ask questions regarding the treatment plan was provided. All questions were answered. The patient expressed understanding and agreement with the above treatment plan. The patient is aware they should contact our office by phone for worsening of their current condition or the appearance of new urologic symptoms. Compliance is encouraged with any medications and followup testing that is ordered. It is a privilege to participate in the urologic care of your patient. If you have any questions or concerns regarding treatment for the above conditions, or other urologic issues, please do not hesitate to contact me. The office telephone contact is [phone]. This note is constructed using voice recognition software. While every effort has been made to ensure accuracy store operations manager errors may have been included. Yours sincerely, Dr sOcar Irby MD, [facility] - Urology Providers of Expert, Compassionate Care for the Genitourinary System Telehealth Telehealth Location of provider rendering services: practice address Location of patient: address on file Patient Identification confirmed using: Name, : Yes Telehealth method: video Patient verbally consented to treatment: Yes Patient verbally consented to billing insurance company: Yes Patient informed of any privacy concerns related to visit: Yes Coding Level of Care Code Tele Est Pt Level 3 (37201) Diagnoses Hydrocele, unspecified hydrocele type N43.3 Hydrocele type: unspecified
== END 2023-06-16 14:02 | disposition home or self-care (01) ==
LOC: HO.HUSH 11:15
PROVIDERS: PCP Internal Medicine; Visit Provider Urology
DX: N43.3 Hydrocele, unspecified (principal)
CPT/HCPCS: 99213

== ENCOUNTER → 2023-06-16 11:15 | Outpatient (BNVA) | payer MEDICARE, SELFPAY | PROVIDERS: PCP Internal Medicine; Visit Provider Urology ==

== ENCOUNTER 2023-06-21 11:46 | Day surgery (SDC) | payer MEDICARE, SELFPAY ==
[2023-05-20 10:33] VITALS: BMI 35.3
--- NOTE | 2023-05-21 11:52 | HO.ANESPROP2 ---
Documented by User: Doreen Hawley NP 06/18/23 10:37 HPI - Anesthesia Eval Consult details Narrative: 73yo M for Left Hydrocele Repair, 06/21/23 Cardiac cleared at low to intermed risk based on 08/2022 office visit. No updated echo. Reviewed case with Dr Rod. Ok to eval DOS. Annual cardiac eval. Last 08/2022 CAD - GA with stent 2006, CABGx3 2020, stable, no anginal complaints HTN - normotensive Ischemic CMP - Pt deferred echo. Last done 2020 with EF 35-45%, entresto PMFSH Active Problems Active Problems: All Active Problems (Updated 01/26/23 @ 12:02 by Nile Landaverde MD) Raynauds disease (Acute) Leg pain (Acute) Left leg swelling (Acute) Multinodular thyroid (Acute) Goiter (Acute) Microalbuminuria (Acute) Urinary retention with incomplete bladder emptying (Acute) Nocturia associated with benign prostatic hyperplasia (Acute) BPH w urinary obs/LUTS (Acute) Fracture of distal end of fibula with routine healing (Acute) Elevated PSA (Acute) Fracture of distal end of left fibula (Acute) Vitamin D deficiency (Acute) HLD (hyperlipidemia) (Acute) HTN (hypertension) (Acute) T2DM (type 2 diabetes mellitus) (Acute) Past Medical History Medical History (Updated 06/16/23 @ 13:49 by Oscar Irby MD) Ischemic cardiomyopathy CAD (coronary artery disease) Left leg swelling Multinodular thyroid Goiter Elevated PSA Vitamin D deficiency HLD (hyperlipidemia) HTN (hypertension) T2DM (type 2 diabetes mellitus) Family History Family History Father No problems noted. Mother No problems noted. Surgical History Surgical History Hx of heart bypass surgery History of prostate surgery H/O heart artery stent Social History Social History (Updated 05/20/23 @ 10:33 by Maria Isabel Peace RN) Household Members: None Housing: House Are you a primary occasional caregiver to a significant other at home: No Do you presently have visiting nurse or other home services: No Alcohol intake: current Alcohol intake frequency: holidays/special occasions only Patient Tobacco Use Status: Never used Tobacco Use of substances other than those prescribed or required for medical reasons: No Have you been hit, kicked, punched, or otherwise hurt by someone within the past year? If so, by whom?: No Are you DNR?: No Advance Directives: No Advance Directives Information Provided: Yes Advance Directives on File: No Recently lost weight without trying: No Nutrition Risks: Surgical patient >75years Poor oral hygiene: No Meds Allergies Allergy/AdvReac Type Severity Reaction Status Date / Time terazosin Allergy Mild rash Verified 06/16/23 11:53 NSAIDS (Non-Steroidal AdvReac Severe stomach Verified 06/16/23 11:53 Anti-Inflamma bleed semaglutide [From Ozempic] AdvReac Severe Diarrhea Verified 06/16/23 11:53 Feeyvrw-WPC-IwE Reductase AdvReac Severe Back Pain Verified 06/16/23 11:53 Inhibitor insulin lispro AdvReac Intermediate Weakness Verified 06/21/23 13:42 [From Humalog Mix] insulin lispro protamine AdvReac Intermediate Weakness Verified 06/21/23 13:42 [From Humalog Mix] insulin glargine AdvReac Mild Weakness Verified 06/16/23 11:53 [From Toumorenao SoloStar U-300 Insulin] lantus AdvReac Intermediate Weakness Uncoded 06/16/23 11:53 Home Medications Medication Instructions Recorded Confirmed Last Taken Type aspirin 81 mg tablet,delayed 81 mg PO DAILY 08/15/20 05/20/23 Unknown History release blood sugar diagnostic #10 ea 08/15/20 03/29/23 Unknown History lancets 33 gauge #100 ea 08/15/20 03/29/23 Unknown History metoprolol tartrate 50 mg tablet 50 mg PO BID 07/31/21 05/20/23 Unknown History sacubitril 24 mg-valsartan 26 mg 1 tab PO BID 02/18/22 05/20/23 Unknown History tablet (Entresto) pen needle, diabetic 31 gauge x #50 ea 09/24/22 03/29/23 Unknown History 11/12 finasteride 5 mg tablet 5 mg PO BEDTIME 05/20/23 05/20/23 Unknown History insulin degludec 100 unit/mL (3 45 unit subcut DAILY 05/20/23 05/20/23 Unknown History mL) subcutaneous pen (Tresiba FlexTouch U-100 insulin) Exam Exam Date and Time: May 21, 2023 1152 Height,Weight and Vital Signs: Height 6 ft Weight 117.934 kg Pertinent Lab Results Pertinent Lab Results: Laboratory Tests 03/23/23 09:34 Sodium 138 Potassium 4.3 Chloride 103 Carbon Dioxide 28 BUN 16 Creatinine 0.96 Narrative Narrative: ECHO 2020 LV dilated in size Asymmetric hypertrophy EF 35-45% overall Inferolat wall appears hypokinetic and apex appears akinetic but was difficult to evaluate. Grade 1 DD LA nml in size RV is upper limit of normal in size. Function appears grossly preserved RA normal in size PASP 30-40mmHg IVC is dilated. Inspiratory collapse could not be accurately evaluated. Assessment and Plan Assessment Anesthesia Assessment: Chart Reviewed Documented by User: Kirby Dugan MD 06/21/23 13:51 [facility] Past Medical History Medical History (Updated 06/16/23 @ 13:49 by Oscar Irby MD) Ischemic cardiomyopathy CAD (coronary artery disease) Left leg swelling Multinodular thyroid Goiter Elevated PSA Vitamin D deficiency HLD (hyperlipidemia) HTN (hypertension) T2DM (type 2 diabetes mellitus) Family History Family History Father No problems noted. Mother No problems noted. Family history of problems with anesthesia: No Surgical History Surgical History Hx of heart bypass surgery History of prostate surgery H/O heart artery stent History of Problems with Anesthesia: No Social History Social History (Updated 05/20/23 @ 10:33 by Maria Isabel Peace RN) Household Members: None Housing: House Are you a primary occasional caregiver to a significant other at home: No Do you presently have visiting nurse or other home services: No Alcohol intake: current Alcohol intake frequency: holidays/special occasions only Patient Tobacco Use Status: Never used Tobacco Use of substances other than those prescribed or required for medical reasons: No Have you been hit, kicked, punched, or otherwise hurt by someone within the past year? If so, by whom?: No Are you DNR?: No Advance Directives: No Advance Directives Information Provided: Yes Advance Directives on File: No Recently lost weight without trying: No Nutrition Risks: Surgical patient >75years Poor oral hygiene: No Meds Allergies Allergy/AdvReac Type Severity Reaction Status Date / Time terazosin Allergy Mild rash Verified 06/16/23 11:53 NSAIDS (Non-Steroidal AdvReac Severe stomach Verified 06/16/23 11:53 Anti-Inflamma bleed semaglutide [From Ozempic] AdvReac Severe Diarrhea Verified 06/16/23 11:53 Tfjjdxt-FWO-FgT Reductase AdvReac Severe Back Pain Verified 06/16/23 11:53 Inhibitor insulin lispro AdvReac Intermediate Weakness Verified 06/21/23 13:42 [From Humalog Mix] insulin lispro protamine AdvReac Intermediate Weakness Verified 06/21/23 13:42 [From Humalog Mix] insulin glargine AdvReac Mild Weakness Verified 06/16/23 11:53 [From Toujeo SoloStar U-300 Insulin] lantus AdvReac Intermediate Weakness Uncoded 06/16/23 11:53 Home Medications Medication Instructions Recorded Confirmed Last Taken Type aspirin 81 mg tablet,delayed 81 mg PO DAILY 08/15/20 05/20/23 Unknown History release blood sugar diagnostic #10 ea 08/15/20 03/29/23 Unknown History lancets 33 gauge #100 ea 08/15/20 03/29/23 Unknown History metoprolol tartrate 50 mg tablet 50 mg PO BID 07/31/21 05/20/23 Unknown History sacubitril 24 mg-valsartan 26 mg 1 tab PO BID 02/18/22 05/20/23 Unknown History tablet (Entresto) pen needle, diabetic 31 gauge x #50 ea 09/24/22 03/29/23 Unknown History 11/12 finasteride 5 mg tablet 5 mg PO BEDTIME 05/20/23 05/20/23 Unknown History insulin degludec 100 unit/mL (3 45 unit subcut DAILY 05/20/23 05/20/23 Unknown History mL) subcutaneous pen (Tresiba FlexTouch U-100 insulin) Exam Airway Mallampati Class: I TM Dist: >3cm Neck ROM: Full Heart: ok. see above. Lungs: ok Assessment and Plan Assessment Anesthesia Assessment: Anesthesia Plan Discussed Final Anesthetic Review Family History of Problems with Anesthesia: No History of Problems with Anesthesia: No NPO: Yes ASA Class: III Final Preanesthetic Review: No Changes in Pt Med Stat, Meds/Allgs Chart Reviewed, Consent Obtained/Reviewed and Anes Risks/Benef Reviewed Patient Risk: Intermediate Procedure Risk: Low Anesthetic Plan Anesthetic Plan: GA and Agree w/ Assess. and Plan Disposition: Standard PACU
[2023-06-21] VITALS (7 sets, daily range): BP systolic 122–149; BP diastolic 76–101; PULSE 68–84; RESP 16; TEMP 36.3–36.8; O2SAT 94–96
--- NOTE | 2023-06-21 12:15 | ECG_ITS ---
Test Reason : CAD, DM, HTN Blood Pressure : / mmHG Vent. Rate : 082 BPM Atrial Rate : 082 BPM P-R Int : 146 ms QRS Dur : 100 ms QT Int : 368 ms P-R-T Axes : 043 267 039 degrees QTc Int : 429 ms Normal sinus rhythm Right superior axis deviation Pulmonary disease pattern RSR' or QR pattern in V1 suggests right ventricular conduction delay Abnormal ECG When compared with ECG of 13-DEC-2014 13:56, Premature atrial complexes are no longer Present RSR' pattern in V1 is now Present Referred By: Doreen Hawley Electronically Signed By:BIBIANA KIM MD
[2023-06-21 12:45] LABS: Glucose, Whole Blood 147 mg/dL (60-115)
[2023-06-21] MEDS: Lactated Ringers 1,000 ML 50 ML IVCONT (13:41)
--- NOTE | 2023-06-21 15:06 | W.PM.OPN ---
Operative Note Operative Note Date of Service: 06/21/23 Narrative: PreOperative Diagnosis: left hydrocele Post Operative Diagnosis: left hydrocele Procedure: Hydrocelectomy with drain Surgeon: Dr Oscar Irby Anesthesia: General Indications for procedure: left large hydrocele with persistent discomfort Procedure: After informed consent was verified the patient was brought to the operating room and placed in a supine position. Anesthesia was administered per protocol. Patient was appropriately shaved and genitals were prepped and draped in sterile fashion. Safety pause time-out was performed. Antibiotics being given. Local anesthetic was infiltrated under the skin in a horizontal fashion on the scrotum. Skin incision was made using a blade through the subdermal layer. The tunica around the testicle was elevated and dissected free from surrounding tissue. The avascular plane around the tunica was entered and using a wet sponge blunt dissection was performed. Any small bleeding perforators were cauterized. The testicle was delivered out of the scrotum and opened in a longitudinal fashion. Fluid was removed - 600 cc. The testicle sac was inverted. Excess thickened sac was dissected and removed using a Thunderbeat cautery instrument to minimize porst procedure bleeding. A bottle neck procedure was performed to approximate edges using a running 3-0 Vicryl suture. Skin edges of the tunica were cauterized carefully in order to try to minimize postprocedure hematoma. Small accessory appendices were removed from the head of epididymis. The testicle with resected sac was placed back into a dependent portion of the scrotum. Overlying skin fascia layer was closed with a running 3-0 Vicryl suture. Skin was closed with interrupted 4-0 chromic sutures. 1/2 inch omari drain placed through scrotum in dependent portion. Drain sewn into fluff sponge with chromic. Soft fluff sponges were placed with mesh pants as dressing. Local anesthetic was placed in inguinal cord for post procedure pain relief. Patient tolerated procedure well was extubated in operating room transferred in stable condition to the recovery area Pathology: Hydrocele sac Drains: Omari drain
[2023-06-21 15:11] LABS: Glucose, Whole Blood 145 mg/dL (60-115)
[2023-06-21] MEDS: oxyCODONE HCl Immed Release 5 MG TABLET PO (15:28)
== END 2023-06-21 16:08 | disposition home or self-care (01) ==
PROVIDERS: PCP Internal Medicine; Visit Provider Urology
PROC: (CPT 55060; principal; 2023-06-21 13:50)
DX: N43.3 Hydrocele, unspecified (principal); N40.1 Benign prostatic hyperplasia with lower urinary tract symptoms; N13.8 Other obstructive and reflux uropathy; R97.20 Elevated prostate specific antigen [PSA]; I25.10 Atherosclerotic heart disease of native coronary artery without angina pectoris; Z95.5 Presence of coronary angioplasty implant and graft; Z95.1 Presence of aortocoronary bypass graft; I10 Essential (primary) hypertension; E11.9 Type 2 diabetes mellitus without complications; E55.9 Vitamin D deficiency, unspecified; E04.2 Nontoxic multinodular goiter; E78.5 Hyperlipidemia, unspecified; Z79.4 Long term (current) use of insulin; Z79.82 Long term (current) use of aspirin; Z79.899 Other long term (current) drug therapy; Z88.8 Allergy status to other drugs, medicaments and biological substances
CPT/HCPCS: 55040; 82947; 88302; 93005; J0131; J0690; J2795; J3010

== ENCOUNTER → 2023-06-21 11:46 | Outpatient (BNV) | payer MEDICARE, SELFPAY | PROVIDERS: PCP Internal Medicine; Visit Provider Urology | DX: N43.3 Hydrocele, unspecified (principal) | CPT/HCPCS: 55040 ==

== ENCOUNTER 2023-08-04 13:00 | Outpatient (AMB) | payer MEDICARE, SELFPAY ==
--- NOTE | 2023-08-04 13:23 | A.OFFVIS_ITS ---
Intake Intake Visit Reasons: 6 week (hydrocele) Intake Note: Patient is Present for Follow Up Post Op Hydrocele Urology Medication: Finasteride Antibiotic Allergies: None Blood Thinners: Aspirin PVR: 74 Compliants: Patient states he is feeling fine after procedure and reports no pain or complications Allergies terazosin Allergy (Mild, Verified 08/04/23 13:26) rash NSAIDS (Non-Steroidal Anti-Inflamma Adverse Reaction (Severe, Verified 08/04/23 13:26) stomach bleed semaglutide [From Ozempic] Adverse Reaction (Severe, Verified 08/04/23 13:26) Diarrhea Pgihejf-YOV-IhM Reductase Inhibitor Adverse Reaction (Severe, Verified 08/04/23 13:26) Back Pain insulin lispro [From Humalog Mix] Adverse Reaction (Intermediate, Verified 08/04/23 13:26) Weakness insulin lispro protamine [From Humalog Mix] Adverse Reaction (Intermediate, Verified 08/04/23 13:26) Weakness insulin glargine [From Toujeo SoloStar U-300 Insulin] Adverse Reaction (Mild, Verified 08/04/23 13:26) Weakness lantus Adverse Reaction (Intermediate, Uncoded 08/04/23 13:26) Weakness Medication List - Last Reconciled 08/04/23 by Oscar Irby MD alirocumab (Praluent Pen) 150 mg subcut Q2W 4 weeks aspirin 81 mg PO DAILY blood sugar diagnostic As directed empagliflozin (Jardiance) 25 mg PO DAILY 30 days finasteride 5 mg PO BEDTIME flash glucose scanning reader (FreeStyle Buck 14 Day [place]) As directed flash glucose sensor (FreeStyle Buck 14 Day Sensor kit) As directed insulin degludec (Tresiba FlexTouch U-100 insulin) 45 units subcut DAILY lancets As directed metformin ER 500 mg PO BID 30 days metoprolol tartrate 50 mg PO BID pen needle, diabetic As directed 4 times a day sacubitril-valsartan 24-26 mg (Entresto) 1 tab PO BID silodosin 8 mg PO BEDTIME 90 days HPI HPI Comments History of Present Illness Details Edin is a pleasant male. He is a patient of Dr. Lee. Seen for the following urologic conditions - lower urinary tract symptoms - elevated PSA - urinary retention Healing from left-sided hydrocelectomy Reassurance provided Six month follow-up PSA PSA 2.6 - fell with finasteride Will continue Lower urinary tract symptoms with elevated PSA Improvement with urination Prostate procedure - prior laser TURP Therapy - finasteride, silodosin Concurrent diagnoses include urinary retention, attack, diabetes within insulin Variable PSA PSA 11/17 8.2, 05/20 5.0 23%F, 02/19 2.6 Prostate biopsy - 2 prior negative biopsies Therapeutic plan continue PSA surveillance PFSH Medical History Ischemic cardiomyopathy CAD (coronary artery disease) Left leg swelling Multinodular thyroid Goiter Elevated PSA Vitamin D deficiency HLD (hyperlipidemia) HTN (hypertension) T2DM (type 2 diabetes mellitus) Surgical History Hx of heart bypass surgery History of prostate surgery H/O heart artery stent Family History Father No problems noted. Mother No problems noted. Social History Household Members: None Housing: House Are you a primary health care law specialist to a significant other at home: No Do you presently have visiting nurse or other home services: No 75 years or older and lives alone: Yes Alcohol intake: current Alcohol intake frequency: holidays/special occasions only Comment: aware of trip hazard Patient Tobacco Use Status: Never used Tobacco Review of Systems Const Denies chills and Denies fever(s) Card Reports no additional complaints and Denies syncope Resp Denies cough GI Denies abdominal pain and Denies heartburn Reports as per HPI and Denies change in libido Neuro Denies syncope Psych Denies change in libido Endo Denies change in libido Physical Exam Const General: cooperative, healthy appearing, comfortable and no acute distress Orientation/consciousness: patient oriented x3 HEENT Face and sinus: Yes normal facial exam Mouth: moist mucous membranes Neck Neck: Yes normal visual inspection, Yes full ROM and Yes trachea midline Chest Chest palpation & inspection: normal inspection of the chest Resp Effort & Inspection: normal respiratory effort, able to speak in complete sentences and no respiratory distress GI Inspection: Yes normal to inspection Back/Spine/Pelvis Cervical Spine: normal cervical lordosis Thoracic/Lumbar Spine: thoracic and lumbar spine normal to inspection Skin General skin exam: no rashes or lesions noted Neuro General: patient oriented x3, gait normal, tone normal and moves all extremities Extrem General: Yes normal to inspection and Yes capillary refill normal Office Procedures Post Void Residual Post Residual Void Post Void Residual (PVR): 74 [id number] Void Residual by ultrasound Results AMB Urinalysis, Automated UA Leukoctes 0 Cali/uL Last Edit by [facility] on 08/04/23 13:36 UA Nitrite Negative Last Edit by [facility] on 08/04/23 13:36 UA Urobilinogen 0.2 mg/dL Last Edit by [facility] on 08/04/23 13:3 6 UA Protein 0 mg/dL Last Edit by [facility] on 08/04/23 13:36 UA pH 5.0 Last Edit by [facility] on 08/04/23 13:36 UA Blood 0 Kaleb/uL Last Edit by [facility] on 08/04/23 13:36 UA Specific Saxis 1.015 Last Edit by [facility] A on 08/04/23 13: 36 UA Ketone Negative Last Edit by [facility] on 08/04/23 13:36 UA Bilirubin 0 mg/dL Last Edit by [facility] on 08/04/23 13:36 UA Glucose 1000 mg/dL Last Edit by [facility] on 08/04/23 13:36 Results Reviewed Results Reviewed: Laboratory Last Values Urine pH (Auto) 5.0 08/04/23 13:27 Specific Saxis (Auto) 1.015 08/04/23 13:27 Urine Protein (Auto) 0 mg/dL 08/04/23 13:27 Glucose (UA)(Auto) 1000 mg/dL 08/04/23 13:27 Urine Ketones (Auto) Negative 08/04/23 13:27 Urine Blood (Auto) 0 Kaleb/uL 08/04/23 13:27 Urine Nitrite (Auto) Negative 08/04/23 13:27 Urine Bilirubin (Auto) 0 mg/dL 08/04/23 13:27 Urine Urobilinogen (Auto) 0.2 mg/dL 08/04/23 13:27 Leukocyte Esterase (Auto) 0 Cali/uL 08/04/23 13:27 Assessment & Plan Assessment & Plan (1) BPH w urinary obs/LUTS: Code(s): N40.1 - Benign prostatic hyperplasia with lower urinary tract symptoms; N13.8 - Other obstructive and reflux uropathy (2) Hydrocele: Code(s): N43.3 - Hydrocele, unspecified Qualifiers: Hydrocele type: unspecified Qualified Code(s): N43.3 - Hydrocele, unspecified Plan Six month follow-up Orders: Orders AMB Urinalysis Automated Today Z13.9 - Encounter for screening, unspecified AMB Post Void Residual by ultrasound Today N13.8 - Other obstructive and reflux uropathy, N40.1 - Benign prostatic hyperplasia with lower urinary tract symptoms Prostate Specific Antigen 6 Months R97.20 - Elevated prostate specific antigen [PSA] Patient Instructions: Imaging studies, laboratory and physical exam results were discussed and reviewed in detail. No major barriers to patient understanding were identified. An opportunity to ask questions regarding the treatment plan was provided. All questions were answered. The patient expressed understanding and agreement with the above treatment plan. The patient is aware they should contact our office by phone for worsening of their current condition or the appearance of new urologic symptoms. Compliance is encouraged with any medications and followup testing that is ordered. It is a privilege to participate in the urologic care of your patient. If you have any questions or concerns regarding treatment for the above conditions, or other urologic issues, please do not hesitate to contact me. The office telephone contact is [phone]. This note is constructed using voice recognition software. While every effort has been made to ensure accuracy employee benefits insurance agent errors may have been included. Yours sincerely, Dr Oscar Irby MD, [facility] - Urology Providers of Expert, Compassionate Care for the Genitourinary System Coding Level of Care Code Est Pt Level 3 (24200) Diagnoses BPH w urinary obs/LUTS N40.1; N13.8 Hydrocele, unspecified hydrocele type N43.3 Hydrocele type: unspecified CPT Codes Post Residual Void - PVR CPT Code: 58004-Aijv Void Residual by ultrasound ([id number])
== END 2023-08-04 14:06 | disposition home or self-care (01) ==
PROVIDERS: PCP Internal Medicine; Visit Provider Urology
DX: N40.1 Benign prostatic hyperplasia with lower urinary tract symptoms (principal); N13.8 Other obstructive and reflux uropathy; N43.3 Hydrocele, unspecified; Z13.9 Encounter for screening, unspecified
CPT/HCPCS: 99024

== ENCOUNTER → 2023-08-04 13:00 | Outpatient (BNVA) | payer MEDICARE, SELFPAY | PROVIDERS: PCP Internal Medicine; Visit Provider Urology | DX: N40.1 Benign prostatic hyperplasia with lower urinary tract symptoms (principal); N13.8 Other obstructive and reflux uropathy; N43.3 Hydrocele, unspecified | CPT/HCPCS: 51798; 81003; 99212 ==

== ENCOUNTER 2023-08-12 11:03 | Outpatient (AMB) | payer MEDICARE, SELFPAY ==
--- NOTE | 2023-08-12 11:11 | A.OFFVIS_ITS ---
Intake Intake Visit Reasons: DM-CONFIRMED Glycerine Plant Operator Required: No Accompanied by: Self / Same As Patient Allergies terazosin Allergy (Mild, Verified 08/04/23 13:26) rash NSAIDS (Non-Steroidal Anti-Inflamma Adverse Reaction (Severe, Verified 08/04/23 13:26) stomach bleed semaglutide [From Ozempic] Adverse Reaction (Severe, Verified 08/04/23 13:26) Diarrhea Jpzjrqc-EBY-WuL Reductase Inhibitor Adverse Reaction (Severe, Verified 08/04/23 13:26) Back Pain insulin lispro [From Humalog Mix] Adverse Reaction (Intermediate, Verified 08/04/23 13:26) Weakness insulin lispro protamine [From Humalog Mix] Adverse Reaction (Intermediate, Verified 08/04/23 13:26) Weakness insulin glargine [From Toujeo SoloStar U-300 Insulin] Adverse Reaction (Mild, Verified 08/04/23 13:26) Weakness lantus Adverse Reaction (Intermediate, Uncoded 08/04/23 13:26) Weakness HPI Comprehensive Diabetes Asmnt Most Recent Diabetes Results: Microalb/Creat Ratio 145.3 ug/mg cr 12/07/22 Cholesterol 123 mg/dL 12/07/22 HDL Cholesterol 43 mg/dL 12/07/22 Triglycerides 114 mg/dL 12/07/22 Creatinine 0.96 mg/dL (0.5-1.4) 03/23/23 Blood Urea Nitrogen 16 mg/dL (9-16) 03/23/23 Sodium 138 mmol/L (135-145) 03/23/23 Potassium 4.3 mmol/L (3.3-5.1) 03/23/23 Chloride 103 mmol/L (96-108) 03/23/23 Carbon Dioxide 28 mmol/L (22-29) 03/23/23 Calcium 9.3 mg/dL (8.4-10.2) 03/23/23 AST 14 U/L (5-37) 03/23/23 ALT 11 U/L (0-40) 03/23/23 Total Protein 7.1 g/dL (6.5-8.0) 03/23/23 Albumin 3.9 g/dL (3.5-5.0) 03/23/23 [facility] Medical History Ischemic cardiomyopathy CAD (coronary artery disease) Left leg swelling Multinodular thyroid Goiter Elevated PSA Vitamin D deficiency HLD (hyperlipidemia) HTN (hypertension) T2DM (type 2 diabetes mellitus) Surgical History Hx of heart bypass surgery History of prostate surgery H/O heart artery stent Family History Father No problems noted. Mother No problems noted. Social History Household Members: None Housing: House Are you a primary ostomy care nurse to a significant other at home: No Do you presently have visiting nurse or other home services: No 75 years or older and lives alone: Yes Alcohol intake: current Alcohol intake frequency: holidays/special occasions only Comment: aware of trip hazard Patient Tobacco Use Status: Never used Tobacco Assessment & Plan Assessment & Plan (1) T2DM (type 2 diabetes mellitus): Code(s): E11.9 - Type 2 diabetes mellitus without complications Qualifiers: Diabetes mellitus training and quality manager insulin use: with care home use Diabetes mellitus complication status: with hyperglycemia Qualified Code(s): E11.65 - Type 2 diabetes mellitus with hyperglycemia; Z79.4 - [facility] (current) use of insulin Plan: Learning objectives: The patient was provided with verbal and written education on the following topics as outlined below. The patient met all learning objectives and was able to verbalize understanding and provide teach back of education topics discussed . The patient was provided with the opportunity to ask questions and all questions were answered. Patient Assessment Assess patient education level/literacy/barriers Patient questions/concerns, patient is currently taking Tresiba 45 units metformin 500 mg BID, Jardiance 25 mg daily patient using Buck 2 to test glucose patient's average glucose for the past 2 weeks 191 mg/dL patient above target 55% patient at target 45% patient below target 0% patient's last A1c 8% in February 2023 patient does have history of hypoglycemia, at last visit Dr. Martinez discontinued Humalog. patient is having spiking glucose between 9 and 10:00 consistently, patient's diabetes medications will be managed by PCP unless PCP refers back to Diabetes Clinic Exercise Medical clearance Effect of exercise on blood sugar Start slowly and gradually increase pace/duration over time Goal amount of exercise Checking blood glucose/have a source of carbs with you Medications (If applicable) * Name of medication * Dosing/administration instructions * Mechanism of action * Potential side effects * Potential adverse reaction and appropriate treatment * Review onset, peak, duration Assess for concerns re: insurance coverage, cost, barriers to compliance Insulin/Injectables (If applicable) * Storage/care of insulin * Injection sites * Site rotation * Onset, peak, duration * Drawing up insulin * Injecting insulin/other injectables * Sharps disposal Continuous blood glucose monitoring (if applicable) Hypoglycemia and Hyperglycemia * Signs and symptoms * Causes * Treatment * Preventing hypoglycemia * When to seek medical attention Medical alert bracelet Lifestyle * Work * Travel * Stress management * Problem solving Know your goals * A1C * Blood sugar targets * Blood pressure * Cholesterol/LDL Urine microalbumin Patient Response to instructions: Comprehension of Instructions: fair Readiness to make changes: contemplation How confident they feel about making changes: fair Patient Instructions: Include regular daily activity. ADA recommends 30 minutes of exercise 5 days a week. Weight loss talk to PCP or Credit Checker before starting new plan. Test blood sugar as directed; Fasting and 2hpp largest meal. Watch trends in results. Utilize results and to assess how food, physical activity and medications affect blood sugar results. Bring glucometer or CGM to next visit. Be knowledgeable about diabetes medication, its action, side effects, efficacy, toxicity, prescribed dosage, appropriate timing and frequency of administration, effect of missed and delayed doses and instructions for storage, travel and safety. Problem solving techniques to monitor hypo/hyperglycemia episodes and treatments. Reduce risk reduction behaviors, smoking cessation, regular eye, foot and dental examinations. Coding Level of Care Code Est Pt Level 1 (02117) Diagnoses Type 2 diabetes mellitus with hyperglycemia, with long-term current use of insulin E11.65; Z79.4 Diabetes mellitus training and quality manager insulin use: with care home use Diabetes mellitus complication status: with hyperglycemia
== END 2023-08-12 11:40 | disposition home or self-care (01) ==
PROVIDERS: PCP Internal Medicine; Visit Provider Registered Nurse Diabetes Educator
DX: E11.65 Type 2 diabetes mellitus with hyperglycemia (principal); Z79.4 Long term (current) use of insulin

== ENCOUNTER → 2023-08-12 11:03 | Outpatient (BNVA) | payer MEDICARE, SELFPAY | PROVIDERS: PCP Internal Medicine; Visit Provider Registered Nurse Diabetes Educator | DX: E11.65 Type 2 diabetes mellitus with hyperglycemia (principal); Z79.4 Long term (current) use of insulin | CPT/HCPCS: 99211 ==

== ENCOUNTER 2023-11-19 09:34 | Outpatient (REF) | payer MEDICARE, SELFPAY ==
[2023-11-19 10:51] LABS: Estimated Average Glucose 189 mg/dL; Hemoglobin A1c % 8.2 % (<6.0)
== END 2023-11-19 09:35 | disposition home or self-care (01) ==
LOC: HO.HMGCLDS 09:34
PROVIDERS: PCP Internal Medicine; Visit Provider Internal Medicine
DX: E11.9 Type 2 diabetes mellitus without complications (principal)
CPT/HCPCS: 36415; 83036

== ENCOUNTER 2024-01-28 11:40 | Outpatient (REF) | payer MEDICARE, SELFPAY ==
[2024-01-28 14:21] LABS: Prostate Specific Antigen 3.67 ng/mL (<0.05-4.0)
== END 2024-01-28 11:41 | disposition home or self-care (01) ==
LOC: HO.HMGCLDS 11:40
PROVIDERS: PCP Internal Medicine; Visit Provider Urology
DX: R97.20 Elevated prostate specific antigen [PSA] (principal); Z12.5 Encounter for screening for malignant neoplasm of prostate
CPT/HCPCS: 36415; 84153

== ENCOUNTER 2024-02-04 09:35 | Outpatient (AMB) | payer MEDICARE, SELFPAY ==
--- NOTE | 2024-02-04 09:45 | MHC.OFFVIS ---
Intake Visit Reasons: 6m/PSA(set) Intake Note: Patient is Present for PVR/PSA Urology Med: Finasteride, Silodosin Antibiotic Allergy: None Blood Thinner: Aspirn Last PVR: 74ml Todays PVR:40 Allergies terazosin Allergy (Mild, Verified 02/04/24 09:51) rash NSAIDS (Non-Steroidal Anti-Inflamma Adverse Reaction (Severe, Verified 02/04/24 09:51) stomach bleed semaglutide [From Ozempic] Adverse Reaction (Severe, Verified 02/04/24 09:51) Diarrhea Clpaiim-MQE-PuK Reductase Inhibitor Adverse Reaction (Severe, Verified 02/04/24 09:51) Back Pain insulin lispro [From Humalog Mix] Adverse Reaction (Intermediate, Verified 02/04/24 09:51) Weakness insulin lispro protamine [From Humalog Mix] Adverse Reaction (Intermediate, Verified 02/04/24 09:51) Weakness insulin glargine [From Toujeo SoloStar U-300 Insulin] Adverse Reaction (Mild, Verified 02/04/24 09:51) Weakness lantus Adverse Reaction (Intermediate, Uncoded 02/04/24 09:51) Weakness HPI Comments Details: Edin is a pleasant male. He is a patient of Dr. Lee. Seen for the following urologic conditions - lower urinary tract symptoms - elevated PSA - urinary retention PSA remains low with finasteride 01/20 3.7 Review in 6 months Would benefit from testosterone evaluation given diabetes Change finasteride to Wednesday, Wednesday, Wednesday Six-month follow-up lab work Lower urinary tract symptoms with elevated PSA Improvement with urination Prostate procedure - prior laser TURP Therapy - finasteride, silodosin Concurrent diagnoses include urinary retention, diabetes within insulin Variable PSA PSA 11/17 8.2, 05/20 5.0 23%F, 02/19 2.6 Prostate biopsy - 2 prior negative biopsies Therapeutic plan continue PSA surveillance [facility] Medical History Ischemic cardiomyopathy CAD (coronary artery disease) Left leg swelling Multinodular thyroid Goiter Elevated PSA Vitamin D deficiency HLD (hyperlipidemia) HTN (hypertension) T2DM (type 2 diabetes mellitus) Surgical History Hx of heart bypass surgery History of prostate surgery H/O heart artery stent Family History Father No problems noted. Mother No problems noted. Social History Household Members: None Housing: House Are you a primary care program resident to a significant other at home: No Do you presently have visiting nurse or other home services: No 75 years or older and lives alone: Yes Alcohol intake: current Alcohol intake frequency: holidays/special occasions only Comment: aware of trip hazard Patient Tobacco Use Status: Never used Tobacco Review of Systems Const Denies chills and Denies fever(s) Card Reports no additional complaints and Denies syncope Resp Denies cough GI Denies abdominal pain and Denies heartburn Reports as per HPI and Denies change in libido Neuro Denies syncope Psych Denies change in libido Endo Denies change in libido Physical Exam Const General: cooperative, healthy appearing, comfortable and no acute distress Orientation/consciousness: patient oriented x3 HEENT Face and sinus: Yes normal facial exam Mouth: moist mucous membranes Neck Neck: Yes normal visual inspection, Yes full ROM and Yes trachea midline Chest Chest palpation & inspection: normal inspection of the chest Resp Effort & Inspection: normal respiratory effort, able to speak in complete sentences and no respiratory distress GI Inspection: Yes normal to inspection Back/Spine/Pelvis Cervical Spine: normal cervical lordosis Thoracic/Lumbar Spine: thoracic and lumbar spine normal to inspection Skin General skin exam: no rashes or lesions noted Neuro General: patient oriented x3, gait normal, tone normal and moves all extremities Extrem General: Yes normal to inspection and Yes capillary refill normal Office Procedures Post Void Residual Post Residual Void Post Void Residual (PVR): 40 [id number] Void Residual by ultrasound Assessment & Plan Assessment & Plan (1) BPH w urinary obs/LUTS: Code(s): N40.1 - Benign prostatic hyperplasia with lower urinary tract symptoms; N13.8 - Other obstructive and reflux uropathy Category: Medical (2) Elevated PSA: Code(s): R97.20 - Elevated prostate specific antigen [PSA] Category: Medical Plan Six-month follow-up lab work Orders: Orders Testosterone, Total 6 Months N13.8 - Other obstructive and reflux uropathy, N40.1 - Benign prostatic hyperplasia with lower urinary tract symptoms AMB Post Void Residual by ultrasound Today R33.9 - Retention of urine, unspecified PSA,Total (Free>4and<10) 6 Months R97.20 - Elevated prostate specific antigen [PSA] Patient Instructions: Imaging studies, laboratory and physical exam results were discussed and reviewed in detail. No major barriers to patient understanding were identified. An opportunity to ask questions regarding the treatment plan was provided. All questions were answered. The patient expressed understanding and agreement with the above treatment plan. The patient is aware they should contact our office by phone for worsening of their current condition or the appearance of new urologic symptoms. Compliance is encouraged with any medications and followup testing that is ordered. It is a privilege to participate in the urologic care of your patient. If you have any questions or concerns regarding treatment for the above conditions, or other urologic issues, please do not hesitate to contact me. The office telephone contact is [phone]. This note is constructed using voice recognition software. While every effort has been made to ensure accuracy drill runner helper errors may have been included. Yours sincerely, Dr Oscar Irby MD, [facility] - Urology Providers of Expert, Compassionate Care for the Genitourinary System Coding Level of Care Code Est Pt Level 3 (28294) Diagnoses BPH w urinary obs/LUTS N40.1; N13.8 Elevated PSA R97.20 CPT Codes Post Residual Void - PVR CPT Code: 19873-Nqzo Void Residual by ultrasound ([id number])
== END 2024-02-04 10:23 | disposition home or self-care (01) ==
PROVIDERS: PCP Internal Medicine; Visit Provider Urology
DX: N40.1 Benign prostatic hyperplasia with lower urinary tract symptoms (principal); N13.8 Other obstructive and reflux uropathy; R97.20 Elevated prostate specific antigen [PSA]
CPT/HCPCS: 99213

== ENCOUNTER → 2024-02-04 09:35 | Outpatient (BNVA) | payer MEDICARE, SELFPAY | PROVIDERS: PCP Internal Medicine; Visit Provider Urology | DX: N40.1 Benign prostatic hyperplasia with lower urinary tract symptoms (principal); N13.8 Other obstructive and reflux uropathy; R97.20 Elevated prostate specific antigen [PSA] | CPT/HCPCS: 51798; 99212 ==

== ENCOUNTER 2024-02-24 10:49 | Outpatient (REF) | payer MEDICARE, SELFPAY ==
--- NOTE | ~2024-02-24 | XR_ITS ---
EXAMINATION: XR LUMBOSACRAL SPINE CLINICAL INFORMATION: Low back pain. COMPARISON: 08/26/2015. TECHNIQUE: Three views of the lumbosacral spine. FINDINGS: Dextroscoliosis of the thoracic spine. 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 Interval progression of multilevel lumbar spondylosis with multilevel loss of disc space height most notable at L5-S1 as well as substantially progressed at L3-L4. XR/XR lumbar spine 2-3V IMPRESSION: Interval progression of multilevel lumbar spondylosis most notable at L5-S1 and L3-L4.
== END 2024-02-24 10:50 | disposition home or self-care (01) ==
LOC: HO.HMGCX 10:49
PROVIDERS: PCP Internal Medicine; Visit Provider Internal Medicine
DX: M54.50 Low back pain, unspecified (principal)
CPT/HCPCS: 72100

== ENCOUNTER 2024-07-25 11:33 | Outpatient (REF) | payer MEDICARE, SELFPAY ==
[2024-07-25 13:47] LABS: PSA,Total (Free>4and<10) 2.73 ng/mL (0.00-4.00)
[2024-07-31 01:24] LABS: Testosterone, Total 449 ng/dL (250-1100)
== END 2024-07-25 11:34 | disposition home or self-care (01) ==
LOC: HO.HMGCLDS 11:33
PROVIDERS: PCP Internal Medicine; Visit Provider Urology
DX: N40.1 Benign prostatic hyperplasia with lower urinary tract symptoms (principal); N13.8 Other obstructive and reflux uropathy; R97.20 Elevated prostate specific antigen [PSA]; Z12.5 Encounter for screening for malignant neoplasm of prostate
CPT/HCPCS: 36415; 84153; 84403

== ENCOUNTER 2024-08-08 09:15 | Outpatient (AMB) | payer MEDICARE, SELFPAY ==
--- NOTE | 2024-08-08 09:17 | A.OFFVIS_ITS ---
Intake Visit Reasons: 6M Labs/PVR(set) Intake Note: Patient is present for 6M LABS/ PVR Urology Medication:FINASTERIDE,SILODOSIN Antibiotic Allergy:NONE Blood Thinner:ASPIRIN Last PVR:74ML'S Todays PVR:0ML'S Technical Systems Architect Required: No Allergies terazosin Allergy (Mild, Verified 08/08/24 09:20) rash NSAIDS (Non-Steroidal Anti-Inflamma Adverse Reaction (Severe, Verified 08/08/24 09:20) stomach bleed semaglutide [From Ozempic] Adverse Reaction (Severe, Verified 08/08/24 09:20) Diarrhea Xyctdiy-AAD-SeJ Reductase Inhibitor Adverse Reaction (Severe, Verified 08/08/24 09:20) Back Pain insulin lispro [From Humalog Mix] Adverse Reaction (Intermediate, Verified 08/08/24 09:20) Weakness insulin lispro protamine [From Humalog Mix] Adverse Reaction (Intermediate, Verified 08/08/24 09:20) Weakness insulin glargine [From Toujeo SoloStar U-300 Insulin] Adverse Reaction (Mild, Verified 08/08/24 09:20) Weakness lantus Adverse Reaction (Intermediate, Uncoded 08/08/24 09:20) Weakness HPI Comments Details: Edin is a pleasant male. He is a patient of Dr. Lee. Seen for the following urologic conditions - lower urinary tract symptoms - elevated PSA - urinary retention PSA stable Pushed out follow-up to yearly Discussed use of Jardiance and drinking fluid with urination Finasteride Wednesday, Wednesday, Wednesday Lower urinary tract symptoms with elevated PSA Improvement with urination Prostate procedure - prior laser TURP Therapy - finasteride, silodosin Concurrent diagnoses include urinary retention, diabetes within insulin Variable PSA PSA 11/17 8.2, 05/20 5.0 23%F, 02/19 2.6, 01/20 3.7, 07/23 3.7, T 450 Prostate biopsy - 2 prior negative biopsies Therapeutic plan continue PSA surveillance [facility], [facility] Medical History Ischemic cardiomyopathy CAD (coronary artery disease) Left leg swelling Multinodular thyroid Goiter Elevated PSA Vitamin D deficiency HLD (hyperlipidemia) HTN (hypertension) T2DM (type 2 diabetes mellitus) Surgical History Hx of heart bypass surgery History of prostate surgery H/O heart artery stent Family History Father No problems noted. Mother No problems noted. Social History Household Members: None Housing: House Are you a primary animal caregiver to a significant other at home: No Do you presently have visiting nurse or other home services: No 75 years or older and lives alone: Yes Alcohol intake: current Alcohol intake frequency: holidays/special occasions only Comment: aware of trip hazard Patient Tobacco Use Status: Never used Tobacco Review of Systems Const Denies chills and Denies fever(s) Card Reports no additional complaints and Denies syncope Resp Denies cough GI Denies abdominal pain and Denies heartburn Reports as per HPI and Denies change in libido Neuro Denies syncope Psych Denies change in libido Endo Denies change in libido Physical Exam Const General: cooperative, healthy appearing, comfortable and no acute distress Orientation/consciousness: patient oriented x3 HEENT Face and sinus: Yes normal facial exam Mouth: moist mucous membranes Neck Neck: Yes normal visual inspection, Yes full ROM and Yes trachea midline Chest Chest palpation & inspection: normal inspection of the chest Resp Effort & Inspection: normal respiratory effort, able to speak in complete sentences and no respiratory distress GI Inspection: Yes normal to inspection Back/Spine/Pelvis Cervical Spine: normal cervical lordosis Thoracic/Lumbar Spine: thoracic and lumbar spine normal to inspection Skin General skin exam: no rashes or lesions noted Neuro General: patient oriented x3, gait normal, tone normal and moves all extremities Extrem General: Yes normal to inspection and Yes capillary refill normal Office Procedures Post Void Residual Post Residual Void Post Void Residual (PVR): 0 [id number]-[id number] Void Residual by ultrasound Results AMB Urinalysis, Automated UA Leukoctes 0 Cali/uL Last Edit by LAURA Beaulieu on 08/08/24 09:40 UA Nitrite Negative Last Edit by LAURA Beaulieu on 08/08/24 09:40 UA Urobilinogen 0.2 mg/dL Last Edit by LAURA Beaulieu on 08/08/24 09:4 0 UA Protein 15 mg/dL Last Edit by LAURA Beaulieu on 08/08/24 09:40 UA pH 5.0 Last Edit by LAURA Beaulieu on 08/08/24 09:40 UA Blood 10 Kaleb/uL Last Edit by LAURA Beaulieu on 08/08/24 09:40 UA Specific Llewellyn 1.020 Last Edit by LAURA Beaulieu on 08/08/24 09: 40 UA Ketone Negative Last Edit by LAURA Beaulieu on 08/08/24 09:40 UA Bilirubin 0 mg/dL Last Edit by LAURA Beaulieu on 08/08/24 09:40 UA Glucose 1000 mg/dL Last Edit by LAURA Beaulieu on 08/08/24 09:40 Results Reviewed Results Reviewed: Laboratory Last Values Urine pH (Auto) 5.0 08/08/24 09:39 Specific Llewellyn (Auto) 1.020 08/08/24 09:39 Urine Protein (Auto) 15 mg/dL 08/08/24 09:39 Glucose (UA)(Auto) 1000 mg/dL 08/08/24 09:39 Urine Ketones (Auto) Negative 08/08/24 09:39 Urine Blood (Auto) 10 Kaleb/uL 08/08/24 09:39 Urine Nitrite (Auto) Negative 08/08/24 09:39 Urine Bilirubin (Auto) 0 mg/dL 08/08/24 09:39 Urine Urobilinogen (Auto) 0.2 mg/dL 08/08/24 09:39 Leukocyte Esterase (Auto) 0 Cali/uL 08/08/24 09:39 Assessment & Plan Assessment & Plan (1) Elevated PSA: Code(s): R97.20 - Elevated prostate specific antigen [PSA] Category: Medical (2) BPH w urinary obs/LUTS: Code(s): N40.1 - Benign prostatic hyperplasia with lower urinary tract symptoms; N13.8 - Other obstructive and reflux uropathy Category: Medical Plan Twelve month follow-up Orders: Orders AMB Urinalysis Automated Today Z13.9 - Encounter for screening, unspecified Prostate Specific Antigen 364 Days N13.8 - Other obstructive and reflux uropathy, N40.1 - Benign prostatic hyperplasia with lower urinary tract symptoms Patient Instructions: Imaging studies, laboratory and physical exam results were discussed and reviewed in detail. No major barriers to patient understanding were identified. An opportunity to ask questions regarding the treatment plan was provided. All questions were answered. The patient expressed understanding and agreement with the above treatment plan. The patient is aware they should contact our office by phone for worsening of their current condition or the appearance of new urologic symptoms. Compliance is encouraged with any medications and followup testing that is ordered. It is a privilege to participate in the urologic care of your patient. If you have any questions or concerns regarding treatment for the above conditions, or other urologic issues, please do not hesitate to contact me. The office telephone contact is [phone]. This note is constructed using voice recognition software. While every effort has been made to ensure accuracy major sales associate errors may have been included. Yours sincerely, Dr Oscar Irby MD, [facility] - Urology Providers of Expert, Compassionate Care for the Genitourinary System Coding Level of Care Code Est Pt Level 3 (83110) Diagnoses Elevated PSA R97.20 BPH w urinary obs/LUTS N40.1; N13.8 CPT Codes Post Residual Void - PVR CPT Code: 70636-Lsdt Void Residual by ultrasound ([id number])
== END 2024-08-08 10:14 | disposition home or self-care (01) ==
PROVIDERS: PCP Internal Medicine; Visit Provider Urology
DX: R97.20 Elevated prostate specific antigen [PSA] (principal); N40.1 Benign prostatic hyperplasia with lower urinary tract symptoms; N13.8 Other obstructive and reflux uropathy; Z13.9 Encounter for screening, unspecified
CPT/HCPCS: 99213

== ENCOUNTER → 2024-08-08 09:15 | Outpatient (BNVA) | payer MEDICARE, SELFPAY | PROVIDERS: PCP Internal Medicine; Visit Provider Urology | DX: N40.1 Benign prostatic hyperplasia with lower urinary tract symptoms (principal); N13.8 Other obstructive and reflux uropathy; R97.20 Elevated prostate specific antigen [PSA] | CPT/HCPCS: 51798; 81003; 99212 ==

== ENCOUNTER 2024-11-08 09:49 | Outpatient (AMB) | payer MEDICARE, SELFPAY ==
[2024-11-08 09:57] VITALS: BP 122/78; PULSE 76; O2SAT 96; BMI 36.9
--- NOTE | 2024-11-08 09:57 | A.OFFVIS_ITS ---
Vital Signs 11/08/24 09:57 Height 6 ft 1 in Weight 279 lb 15.793 oz BMI 36.9 BP 122/78 Blood Pressure Location Rt brachial Position Sitting Pulse 76 Pulse Source Pulse Oximeter Pulse Oximetry (%) 96 Oxygen Delivery Method Room Air Intake Visit Reasons: Type 2 DM Intake Note: Patient presents today to re-establish treatment for Type 2 Diabetes Mellitus: Last Diabetic eye exam was on: DUE Last Podiatry exam was on: Patient does not see a Wire Taper Most recent HbA1c: 12.4%, 11/08/2024 Random Glucose- 308 mg/dL, Today Geriatric Physician Required: No Accompanied by: Self / Same As Patient Allergies terazosin Allergy (Mild, Verified 11/08/24 09:57) rash NSAIDS (Non-Steroidal Anti-Inflamma Adverse Reaction (Severe, Verified 11/08/24 09:57) stomach bleed semaglutide [From Ozempic] Adverse Reaction (Severe, Verified 11/08/24 09:57) Diarrhea Yzxowwz-WLJ-OmP Reductase Inhibitor Adverse Reaction (Severe, Verified 11/08/24 09:57) Back Pain insulin lispro [From Humalog Mix] Adverse Reaction (Intermediate, Verified 11/08/24 09:57) Weakness insulin lispro protamine [From Humalog Mix] Adverse Reaction (Intermediate, Verified 11/08/24 09:57) Weakness insulin glargine [From Toujeo SoloStar U-300 Insulin] Adverse Reaction (Mild, Verified 11/08/24 09:57) Weakness lantus Adverse Reaction (Intermediate, Uncoded 11/08/24 09:57) Weakness HPI Comments Details: 74 year old male presenting for diabetes follow up. Diagnosed with T2DM in 2009. Current medications: On Metformin 500 mg PO BID-not taking, Jardiance 25 mg PO daily-compliant, Tresiba 42 units daily-was increased by PCP, says he was intolerant. Reports rare hypoglycemia. Has symptoms of hypoglycemia with anything <90 with sweats. Treats lows with rapid sugar. Does not always check sugar after to ensure it is rising. Is aware of the rule of 15's to treat low sugars. Most recent A1C: 8.0% 03/23/2023, 7.6% 12/07/2022, up from 7.3% 08/18/2022. Denies a Family history of T2DM. Has eyes checked yearly, last eye exam 07/07/2022. Has mild retinopathy. Does report neuropathy. Has nephropathy, on entresto BID. Had a cough with Lisinopril. UAC 145.3 12/07/2022. Prescribed Losartan but had side effects with this so stopped. Has HLD, not on statin. Has trialed 3 statins, but developed rhabdomyolosis with this. Now on Praluent 150 mg q 2 weeks. LDL 60 12/07/2022. Has CAD. Diet: Does not count carbohydrates. Weight: Stable. Is attending diabetes education. Had a thyroid US which revealed multiple bilateral thyroid nodules. He underwe nt FNA biopsy of his RMP 1.3 cm thyroid nodule 09/10/2022 with nondiagnostic results.? Thyroid US: 05/21/2022 Right Thyroid Lobe: 5.0 x 2.1 x 1.8 cm, volume 11.4 mL. Parenchyma: The gland echotexture is heterogeneous. Thyroid vascularity is normal. Left Thyroid Lobe: 5.8 x 2.4 x 2.2 cm, volume 15.8 mL. Parenchyma: The gland echotexture is heterogeneous. Thyroid vascularity is normal. Isthmus: 0.5 cm in maximum AP dimension. Estimated total number of nodules greater than or equal to 1 cm: 3. Avionics Test Technician nodules are described as follows: [facility] Medical History Ischemic cardiomyopathy CAD (coronary artery disease) Left leg swelling Multinodular thyroid Goiter Elevated PSA Vitamin D deficiency HLD (hyperlipidemia) HTN (hypertension) T2DM (type 2 diabetes mellitus) Surgical History Hx of heart bypass surgery History of prostate surgery H/O heart artery stent Family History Father No problems noted. Mother No problems noted. Social History Household Members: None Housing: House Are you a primary long term acute care registered nurse to a significant other at home: No Do you presently have visiting nurse or other home services: No 75 years or older and lives alone: Yes Alcohol intake: current Alcohol intake frequency: holidays/special occasions only Comment: aware of trip hazard Patient Tobacco Use Status: Never used Tobacco Physical Exam Vital Signs: Last Vital Signs Pulse 76 11/08/24 09:57 BP 122/78 11/08/24 09:57 Pulse Ox 96 11/08/24 09:57 Oxygen Delivery Method Room Air 11/08/24 09:57 BMI result Body Mass Index 36.9 Results AMB Hemoglobin A1c AMB Hemoglobin A1c 12.4 % Last Edit by MINISTERIO Meza on 11/08/24 10:1 5 Results Reviewed Results Reviewed: Laboratory Last Values Glucose (Clinic) 308 mg/dL (60-115) H 11/08/24 10:03 Hgb A1c (Clinic) 12.4 % (4.0-6.0) H 11/08/24 10:15 Assessment & Plan Assessment & Plan Orders: Orders AMB Hemoglobin A1c Today E11.65 - Type 2 diabetes mellitus with hyperglycemia, Z79.4 - halfway (current) use of insulin thyroid Today E04.1 - Nontoxic single thyroid nodule Medications: New FreeStyle Buck 3 [place] (blood-glucose meter,continuous) As directed 1 ea 0RF NS E11.65 - Type 2 diabetes mellitus with hyperglycemia, Z79.4 - intermodal customer service (current) use of insulin Repatha SureClick (evolocumab) 140 mg subcut Q2W 6 mL 3RF NS E78.5 - Hyperl ipidemia, unspecified, Z78.9 - Other specified health status glipizide ER 10 mg PO DAILY 90 tabs 3RF FreeStyle Buck 3 Plus Sensor (blood-glucose sensor) every 15 days 6 ea 3RF NS Discontinued metformin ER Discontinued Reason: Doctor's Order 500 mg PO BID 30 days 60 tabs 11RF E11.65 - Type 2 diabetes mellitus with hyperglycemia, Z79.4 - intermodal customer service (current) use of insulin Coding
[2024-11-08 10:09] LABS: Glucose, Whole Blood 308 mg/dL (60-115)
--- OUTSIDE RECORDS SUMMARY | 2024-11-08 10:54 | XMS_ITS | Clinical Summary ---
Author Organization [facility] Facility Address [address] [place] [id number] Care Team Providers Care Phthalic Acid Purifier Name Role Phone Edin Lee MD Primary Care Provider [phone] Social History Tobacco Use Types Packs/Day Years Used Date Smoking Tobacco: Never Assessed Sex and Gender Information Value Date Recorded Sex Assigned at Not on file Legal Sex Male 2:14 PM EDT Gender Identity Not on file Sexual Orientation Not on file Plan of Treatment Health Maintenance Due Date Last Done Comments Pneumococcal Vaccine: 65+ Ye ars (1 of 1 - PCV) 02/25/2013 Influenza Vaccine (#1) 2024 Hepatitis B Vaccine Aged Out No longe r eligible based on patient's age to complete this topic Insurance MEDICARE MEDICARE Care Teams Phthalic Acid Purifier Relationship Specialty Start Date End Date Edin Lee MD [address] [place] [address] PCP - General Internal Medicine 03/23/22
== END 2024-11-08 10:45 | disposition home or self-care (01) ==
LOC: HO.ENCR 09:49
PROVIDERS: PCP Internal Medicine; Visit Provider Internal Medicine
DX: E11.65 Type 2 diabetes mellitus with hyperglycemia (principal); Z79.4 Long term (current) use of insulin

== ENCOUNTER → 2024-11-08 09:49 | Outpatient (BNVA) | payer MEDICARE, SELFPAY | PROVIDERS: PCP Internal Medicine; Visit Provider Internal Medicine | DX: E11.65 Type 2 diabetes mellitus with hyperglycemia (principal); Z79.4 Long term (current) use of insulin; Z79.82 Long term (current) use of aspirin | CPT/HCPCS: 82947; 83036; 99212 ==

== ENCOUNTER 2024-11-27 11:23 | Outpatient (REF) | payer MEDICARE, SELFPAY ==
--- NOTE | ~2024-11-27 | US_ITS ---
EXAMINATION: US THYROID HISTORY: E04.1 - Nontoxic single thyroid nodule TECHNIQUE: Real-time grayscale ultrasound imaging was performed and images were reviewed. COMPARISON: Comparison is made with the prior examination dated 05/21/2022. FINDINGS: SIZE: The right thyroid lobe measures 5.9 x 2.8 x 2.4 cm. The left thyroid lobe measures 5.2 x 2.9 x 2.1 cm. The isthmus measures 6 mm. FLOW: Flow to the gland is normal. ECHOGENICITY: The echotexture of the gland is heterogeneous. NODULES: Again seen is an 8 x 4 x 7 mm cyst at the upper pole of the right thyroid lobe. There is a 4 x 3 x 5 mm cyst at the upper pole of the left thyroid lobe. There are spongiform nodules in the upper and lower poles of the right thyroid lobe. A single solid nodule is noted as described below: Nodule #: 1 Location: Midportion of the right thyroid lobe measuring 11 x 10 x 12 mm Shape: Wider than tall (0 points) Margins: Smooth (0 points) Echotexture: Isoechoic (1 point) Composition: Mixed (1 point) Calcifications: Punctate calcifications (3 points) Total points: 5 TIRADS: TR4: Moderately suspicious. US/US thyroid IMPRESSION: Stable 11 x 10 x 12 mm moderately suspicious nodule in the midportion of the right thyroid lobe. Continued follow-up is recommended. ACR TI-RADS Guidelines TR1 (0 points): Benign, No follow-up or biopsy required TR2 (2 points): Not Suspicious, No biopsy or follow up indicated TR3 (3 points): Mildly Suspicious, FNA if >= 2.5 cm, Follow if >= 1.5 cm TR4 (4-6 points): Moderately Suspicious, FNA if >= 1.5 cm, Follow if >= 1.0 cm TR5 (>=7 points): Highly Suspicious, FNA if >= 1.0 cm, Follow if >= 0.5 cm Electronically signed by: Marvin Fermin MD 11/27/2024 01:26 PM EDT
--- OUTSIDE RECORDS SUMMARY | 2024-11-27 13:03 | XMS_ITS | Clinical Summary ---
Author Organization [facility] Facility Address [address] [place] [id number] Care Team Providers Care Apple Press Operator Name Role Phone Edin Lee MD Primary Care Provider [phone] Social History Tobacco Use Types Packs/Day Years [...] this topic Insurance MEDICARE MEDICARE Care Teams Apple Press Operator Relationship Specialty Start Date End Date Edin Lee MD [address] [address] PCP - General Internal Medicine 03/23/22
== END 2024-11-27 11:24 | disposition home or self-care (01) ==
LOC: HO.HMGCX 11:23
PROVIDERS: PCP Internal Medicine; Visit Provider Internal Medicine
DX: E04.1 Nontoxic single thyroid nodule (principal)
CPT/HCPCS: 76536

== ENCOUNTER → 2024-11-27 11:26 | Outpatient (BNV) | payer MEDICARE, SELFPAY | PROVIDERS: PCP Internal Medicine; Visit Provider Radiology Diagnostic Radiology | DX: E04.1 Nontoxic single thyroid nodule (principal) | CPT/HCPCS: 76536 ==

== ENCOUNTER 2025-01-16 13:21 | Outpatient (AMB) | payer MEDICARE, SELFPAY ==
[2025-01-16 13:22] VITALS: BP 140/78; PULSE 71; O2SAT 97; BMI 36.2
--- NOTE | 2025-01-16 13:22 | MHC.OFFVIS ---
Vital Signs 01/16/25 13:22 Height 6 ft 1 in Weight 274 lb 4.081 oz BMI 36.2 BP 140/78 H Blood Pressure Location Lt brachial Position Sitting Pulse 71 Pulse Source Pulse Oximeter Pulse Oximetry (%) 97 Oxygen Delivery Method Room Air Intake Visit Reasons: Nontoxic single thyroid nodule Intake Note: New patient present today for Nontoxic single thyroid nodule. Microsystems Engineer Required: No Accompanied by: Self / Same As Patient Allergies terazosin Allergy (Mild, Verified 01/16/25 13:26) rash NSAIDS (Non-Steroidal Anti-Inflamma Adverse Reaction (Severe, Verified 01/16/25 13:26) stomach bleed semaglutide [From Ozempic] Adverse Reaction (Severe, Verified 01/16/25 13:26) Diarrhea Fiydcko-RZY-ZeF Reductase Inhibitor Adverse Reaction (Severe, Verified 01/16/25 13:26) Back Pain insulin lispro [From Humalog Mix] Adverse Reaction (Intermediate, Verified 01/16/25 13:26) Weakness insulin lispro protamine [From Humalog Mix] Adverse Reaction (Intermediate, Verified 01/16/25 13:26) Weakness insulin glargine [From Toujeo SoloStar U-300 Insulin] Adverse Reaction (Mild, Verified 01/16/25 13:26) Weakness lantus Adverse Reaction (Intermediate, Uncoded 01/16/25 13:26) Weakness HPI Comments Details: 74-year-old male coming in today for follow up of nontoxic multinodular goiter. He also follows in our practice with Dr. Bianca Shay for type 2 diabetes mellitus, this was not addressed today. Diagnosed with thyroid nodules in April 2022 which showed multiple right subcentimeter nodules, a right midpole 1 cm mixed cystic solid isoechoic nodule with punctate echogenic foci, TR 4 category, a right midpole 1.2 cm spongiform nodule and a left inferior 1 cm spongiform nodule. FNA biopsy of the right midpole 1.3 cm nodule 09/10/2022 came back nondiagnostic. Most recent thyroid ultrasound 11/27/2024, I reviewed the images myself which showed right superior and left superior cysts. A right dominant 1.2 cm midpole solid isoechoic nodule with punctate echogenic foci which is TR 4 category is noted. I do not see the punctate echogenic foci in my static view, however they are reported in the ultrasound report. His gland is heterogenous, so it is hard to define the boundaries of this nodule, but it has not increased significantly in size compared to last ultrasound in 2021. Patient currently denies heat or cold intolerance, diarrhea or constipation, hair loss, palpitation, anxiety, weight changes, mood changes, low energy, changes in appearance of eyes or vision changes, tremors, increased diaphoresis or dry skin. ? Patient denies any difficulty swallowing, pain on swallowing or voice changes or difficulty breathing. Patient denies any history of childhood neck radiation. Denies having ever used lithium, amiodarone or biotin supplements. Patient denies any family history of thyroid cancer or thyroid disease. Physical exam General: sitting comfortably in no acute distress HEENT: normocephalic/atraumatic, moist oral mucosa Neck: supple, symmetrical Cardiac: normal heart sounds Pulm: normal breath sounds B/L, no added breath sounds Abd: not distended, no tenderness Extremities: no edema, no signs of myxedema Laboratory Tests 03/23/23 09:34 TSH 1.06 EXAMINATION: US THYROID 11/27/24 HISTORY: E04.1 - Nontoxic single thyroid nodule TECHNIQUE: Real-time grayscale ultrasound imaging was performed and images were reviewed. COMPARISON: Comparison is made with the prior examination dated 05/21/2022. FINDINGS: SIZE: The right thyroid lobe measures 5.9 x 2.8 x 2.4 cm. The left thyroid lobe measures 5.2 x 2.9 x 2.1 cm. The isthmus measures 6 mm. FLOW: Flow to the gland is normal. ECHOGENICITY: The echotexture of the gland is heterogeneous. NODULES: Again seen is an 8 x 4 x 7 mm cyst at the upper pole of the right thyroid lobe. There is a 4 x 3 x 5 mm cyst at the upper pole of the left thyroid lobe. There are spongiform nodules in the upper and lower poles of the right thyroid lobe. A single solid nodule is noted as described below: Nodule #: 1 Location: Midportion of the right thyroid lobe measuring 11 x 10 x 12 mm Shape: Wider than tall (0 points) Margins: Smooth (0 points) Echotexture: Isoechoic (1 point) Composition: Mixed (1 point) Calcifications: Punctate calcifications (3 points) Total points: 5 TIRADS: TR4: Moderately suspicious. US/US thyroid IMPRESSION: Stable 11 x 10 x 12 mm moderately suspicious nodule in the midportion of the right thyroid lobe. Continued follow-up is recommended. [facility] Medical History Ischemic cardiomyopathy CAD (coronary artery disease) Left leg swelling Multinodular thyroid Goiter Elevated PSA Vitamin D deficiency HLD (hyperlipidemia) HTN (hypertension) T2DM (type 2 diabetes mellitus) Surgical History Hx of heart bypass surgery History of prostate surgery H/O heart artery stent Family History Father No problems noted. Mother No problems noted. Social History Household Members: None Housing: House Are you a primary career development specialist to a significant other at home: No Do you presently have visiting nurse or other home services: No 75 years or older and lives alone: Yes Alcohol intake: current Alcohol intake frequency: holidays/special occasions only Comment: aware of trip hazard Patient Tobacco Use Status: Never used Tobacco Physical Exam Vital Signs: Last Vital Signs Pulse 71 01/16/25 13:22 BP 140/78 H 01/16/25 13:22 Pulse Ox 97 01/16/25 13:22 Oxygen Delivery Method Room Air 01/16/25 13:22 BMI result Body Mass Index 36.2 Assessment & Plan Assessment & Plan (1) Multinodular goiter (nontoxic): Code(s): E04.2 - Nontoxic multinodular goiter Category: Medical Plan: 74-year-old male with no family history of thyroid cancer with no personal history of head or neck radiation who is coming in today for follow up of nontoxic multinodular goiter. He last saw Dr. Martinez for this. Diagnosed with thyroid nodules in April 2022 which showed multiple right subcentimeter nodules, a right midpole 1 cm mixed cystic solid isoechoic nodule with punctate echogenic foci, TR 4 category, a right midpole 1.2 cm spongiform nodule and a left inferior 1 cm spongiform nodule. FNA biopsy of the right midpole 1.3 cm nodule 09/10/2022 came back nondiagnostic. It was decided to continue with ultrasound surveillance after that instead of repeating a biopsy with mutual discussion. Most recent thyroid ultrasound 11/27/2024, I reviewed the images myself which showed right superior and left superior cysts. A right dominant 1.2 cm midpole solid isoechoic nodule with punctate echogenic foci which is TR 4 category is noted. I do not see the punctate echogenic foci in my static view, however they are reported in the ultrasound report. His gland is heterogenous, so it is hard to define the boundaries of this nodule, so while it is reported to increased significantly in size compared to last ultrasound in 2021 it is hard to really tell if it has really increased in size. Plus when Dr. Martinez performed the biopsy she measured it as 1.3 cm.. I discussed with the patient that we could potentially repeat the biopsy given his 1st 1 was nondiagnostic, and that his nodule might have increased in size somewhat, however it is also totally okay to monitor it for now given that overall this nodule appears low risk and does not meet size criteria for biopsy. Patient is opting for ultrasound surveillance. We discussed the general 5-10% risk of cancer in thyroid nodules. Plan: -ordered ultrasound of the thyroid to be done in 1 year prior to follow up -follow up in 1 year -he has not had any recent TFTs, ordered TSH with reflex free T4 to be done now we will communicate the results to Plan I spent 30 minutes in reviewing the record, seeing the patient and documenting in the medical record. Orders: Orders TSH reflex Free T4 Today E04.2 - Nontoxic multinodular goiter US thyroid 1 Year E04.2 - Nontoxic multinodular goiter Patient Instructions: Do thyroid blood Do thyroid ultrasound a few weeks prior to your next visit in 1 year, someone will call you to schedule this Coding Level of Care Code Est Pt Level 4 (64821) Diagnoses Multinodular goiter (nontoxic) E04.2 Time Spent (min) 30
--- OUTSIDE RECORDS SUMMARY | 2025-01-16 14:30 | XMS_ITS | Clinical Summary ---
Author Organization [facility] Facility Address [address] [place] [id number] Care Team Providers Care Counselor Nurses' Association Name Role Phone Edin Lee MD Primary Care Provider [phone] Social History Tobacco Use Types Packs/Day Years Used Date Smoking Tobacco: Never Assessed Sex and Gender Information Value Date Recorded Sex Assigned at Not on file Legal Sex Male 2:14 PM EDT Gender Identity Not on file Sexual Orientation Not on file Plan of Treatment Health Maintenance Due Date Last Done Comments Pneumococcal Vaccine: 50+ Ye ars (1 - PCV) 02/25/1998 Influenza Vaccine (Season Ended) 2025 Hepatitis B Vaccine Aged Out No longe r eligible based on patient's age to complete this topic Insurance Medicare Medicare Care Teams Counselor Nurses' Association Relationship Specialty Start Date End Date Edin Lee MD [address] [place] [address] PCP - General Internal Medicine 03/23/22
== END 2025-01-16 13:55 | disposition home or self-care (01) ==
LOC: HO.ENCR 13:21
PROVIDERS: PCP Internal Medicine; Visit Provider Student in an Organized Health Care Education/Training Program
DX: E04.2 Nontoxic multinodular goiter (principal)
CPT/HCPCS: 99214

== ENCOUNTER → 2025-01-16 13:21 | Outpatient (BNVA) | payer MEDICARE, SELFPAY | PROVIDERS: PCP Internal Medicine; Visit Provider Student in an Organized Health Care Education/Training Program | DX: E04.2 Nontoxic multinodular goiter (principal) | CPT/HCPCS: 99212 ==

== ENCOUNTER 2025-01-18 11:15 | Outpatient (REF) | payer MEDICARE, SELFPAY ==
--- OUTSIDE RECORDS SUMMARY | 2025-01-18 11:54 | XMS_ITS | Clinical Summary ---
Author Organization [facility] Facility Address [address] [place] [address] Care Team Providers Care Heat Treating Furnace Tender Name Role Phone Edin Lee MD Primary Care Provider [phone] Social History Tobacco Use Types Packs/Day Years [...] this topic Insurance Medicare Medicare Care Teams Heat Treating Furnace Tender Relationship Specialty Start Date End Date Edin Lee MD [address] [place] [address] PCP - General Internal Medicine 03/23/22
[2025-01-18 13:54] LABS: TSH reflex Free T4 0.98 uIU/mL (0.32-4.0)
== END 2025-01-18 11:16 | disposition home or self-care (01) ==
LOC: HO.HMGCLDS 11:15
PROVIDERS: PCP Internal Medicine; Visit Provider Student in an Organized Health Care Education/Training Program
DX: E04.2 Nontoxic multinodular goiter (principal)
CPT/HCPCS: 36415; 84443

== ENCOUNTER 2025-02-07 10:27 | Outpatient (AMB) | payer MEDICARE, SELFPAY ==
[2025-02-07 10:31] VITALS: BP 162/94; PULSE 74; O2SAT 95; BMI 36.1
--- NOTE | 2025-02-07 10:31 | A.OFFVIS_ITS ---
Vital Signs 02/07/25 10:31 Height 6 ft 1 in Weight 273 lb 5.971 oz BMI 36.1 BP 162/94 H Blood Pressure Location Rt brachial Position Sitting Pulse 74 Pulse Source Pulse Oximeter Pulse Oximetry (%) 95 Oxygen Delivery Method Room Air Intake Visit Reasons: DM Intake Note: Patient presents today for a follow-up on Type 2 Diabetes Mellitus: Last Diabetic eye exam was on: 01/16/2025, [facility] Last Podiatry exam was on: Patient does not see a Concrete Pourer Most recent HbA1c: 11.6%, 02/07/2025 Random Glucose: 158 mg/dL Accompanied by: Self / Same As Patient Allergies terazosin Allergy (Mild, Verified 01/16/25 13:26) rash NSAIDS (Non-Steroidal Anti-Inflamma Adverse Reaction (Severe, Verified 01/16/25 13:26) stomach bleed semaglutide [From Ozempic] Adverse Reaction (Severe, Verified 01/16/25 13:26) Diarrhea Jixhpod-MLX-ZzN Reductase Inhibitor Adverse Reaction (Severe, Verified 01/16/25 13:26) Back Pain insulin lispro [From Humalog Mix] Adverse Reaction (Intermediate, Verified 01/16/25 13:26) Weakness insulin lispro protamine [From Humalog Mix] Adverse Reaction (Intermediate, Verified 01/16/25 13:26) Weakness insulin glargine [From Toujeo SoloStar U-300 Insulin] Adverse Reaction (Mild, Verified 01/16/25 13:26) Weakness lantus Adverse Reaction (Intermediate, Uncoded 01/16/25 13:26) Weakness HPI Comments Details: 74 year old male presenting for diabetes follow up PCP Dr Lee Diagnosed with T2DM in 2009. Current medications: On Metformin 500 mg PO BID-he stopped 2/2 GI side effects, Jardiance 25 mg PO daily-compliant, taking Tresiba 42 units daily-was increased by PCP to 60 still taking 42, says he was intolerant. Intolerant ozempic, not willing to try another GLP. Started glipizide at last visit-gave joint pain. Lowest reading was 126 A1C 11.6 from 12.4%. Much better control in 2022, 2023. Tried glipizide-gave joint pain. Lowest reading was 126 Denies a Family history of T2DM. Has eyes checked yearly, last eye exam Has mild retinopathy. Does report neuropathy. Has nephropathy, on entresto BID. Had a cough with Lisinopril. Prescribed Losartan but had side effects with this so stopped. Has HLD, not on statin. Has trialed 3 statins, but developed rhabdomyolosis with this. Now on Praluent Has CAD. Has attended diabetes education. Has had thyroid nodules, non diagnostic FNA. u/s overdue ROS CONSTITUTIONAL: Denies weight loss, fever and chills. HEENT: Denies changes in vision and hearing. RESPIRATORY: Denies SOB and cough. CV: Denies palpitations and CP GI: Denies abdominal pain, nausea, vomiting and diarrhea. : Denies dysuria and urinary frequency. MSK: Denies new myalgia and joint pain. SKIN: Denies rash and pruritus. NEUROLOGICAL: Denies headache PSYCHIATRIC: Denies recent changes in mood. PHYSICAL EXAM: GENERAL: Alert and oriented x 3. NAD EYES: EOMI. Anicteric. HENT: Moist mucous membranes. No scleral icterus. No cervical lymphadenopathy. LUNGS: Clear to auscultation bilaterally. CARDIOVASCULAR: Regular rate and rhythm. No murmur. No JVD. ABDOMEN: Soft, non-tender +bs EXTREMITIES: No edema. Non-tender. SKIN: No rashes or lesions. Warm. NEUROLOGIC: No focal neurological deficits. CN II-XII grossly intact PSYCHIATRIC: Cooperative. Appropriate mood and affect [facility] Medical History (Updated 01/16/25 @ 13:48 by Flower Higuera MD) Multinodular goiter (nontoxic) Ischemic cardiomyopathy CAD (coronary artery disease) Left leg swelling Multinodular thyroid Goiter Elevated PSA Vitamin D deficiency HLD (hyperlipidemia) HTN (hypertension) T2DM (type 2 diabetes mellitus) Surgical History Hx of heart bypass surgery History of prostate surgery H/O heart artery stent Family History Father No problems noted. Mother No problems noted. Social History Household Members: None Housing: House Are you a primary career development engineer to a significant other at home: No Do you presently have visiting nurse or other home services: No 75 years or older and lives alone: Yes Alcohol intake: current Alcohol intake frequency: holidays/special occasions only Comment: aware of trip hazard Patient Tobacco Use Status: Never used Tobacco Physical Exam Vital Signs: Last Vital Signs Pulse 74 02/07/25 10:31 BP 162/94 H 02/07/25 10:31 Pulse Ox 95 02/07/25 10:31 Oxygen Delivery Method Room Air 02/07/25 10:31 BMI result Body Mass Index 36.1 Results AMB Hemoglobin A1c AMB Hemoglobin A1c 11.6 % Last Edit by MINISTERIO Meza on 02/07/25 10:4 5 Results Reviewed Results Reviewed: Laboratory Last Values Glucose (Clinic) 158 mg/dL (60-115) H 02/07/25 10:35 Hgb A1c (Clinic) 11.6 % (4.0-6.0) H 02/07/25 10:37 Assessment & Plan Assessment & Plan (1) T2DM (type 2 diabetes mellitus): Code(s): E11.9 - Type 2 diabetes mellitus without complications Category: Medical Qualifiers: Diabetes mellitus complication status: with hyperglycemia Diabetes mellitus fci insulin use: with fci use Qualified Code(s): E11.65 - Type 2 diabetes mellitus with hyperglycemia; Z79.4 - longterm (current) use of insulin (2) Long-term insulin use: Code(s): Z79.4 - computer terminal operator (current) use of insulin Category: Medical Plan Uncontrolled diabetes. some interval improvement in A1C Intolerant of recent trial of glipizide. Trial actos. Increase insulin to 50units. Intolerant to multiple medications trials in the past He will return in 3 months or sooner as needed Discussed danger of uncontrolled diabetes. Orders: Orders AMB Hemoglobin A1c Today E11.65 - Type 2 diabetes mellitus with hyperglycemia, Z79.4 - computer terminal operator (current) use of insulin Medications: New pioglitazone 30 mg PO DAILY 90 tabs 3RF Tresiba FlexTouch U-200 (insulin degludec) 50 units (0.25 mL) subcut BEDTIME 9 mL 3RF NS E11.65 - Type 2 diabetes mellitus with hyperglycemia, Z79.4 - computer terminal operator (current) use of insulin Coding Level of Care Code Est Pt Level 4 (91433) Diagnoses Type 2 diabetes mellitus with hyperglycemia, with long-term current use of insulin E11.65; Z79.4 Diabetes mellitus complication status: with hyperglycemia Diabetes mellitus termite exterminator insulin use: with fci use Long-term insulin use Z79.4
[2025-02-07 10:39] LABS: Glucose, Whole Blood 158 mg/dL (60-115)
--- OUTSIDE RECORDS SUMMARY | 2025-02-07 11:51 | XMS_ITS | Clinical Summary ---
Author Organization [facility] Facility Address [address] [place] [address] Care Team Providers Care Siding Coreboard Inspector Name Role Phone Edin Lee MD Primary Care Provider [phone] Social History Tobacco Use Types Packs/Day Years [...] this topic Insurance Medicare Medicare Care Teams Siding Coreboard Inspector Relationship Specialty Start Date End Date Edin Lee MD [address] [place] [address] PCP - General Internal Medicine 03/23/22
== END 2025-02-07 11:01 | disposition home or self-care (01) ==
LOC: HO.ENCR 10:27
PROVIDERS: PCP Internal Medicine; Visit Provider Internal Medicine
DX: E11.65 Type 2 diabetes mellitus with hyperglycemia (principal); Z79.4 Long term (current) use of insulin

== ENCOUNTER → 2025-02-07 10:27 | Outpatient (BNVA) | payer MEDICARE, SELFPAY | PROVIDERS: PCP Internal Medicine; Visit Provider Internal Medicine | DX: E11.65 Type 2 diabetes mellitus with hyperglycemia (principal); Z79.4 Long term (current) use of insulin | CPT/HCPCS: 82947; 83036; 99212 ==

== ENCOUNTER 2025-04-25 09:58 | Outpatient (AMB) | payer MEDICARE, SELFPAY ==
[2025-04-25 10:00] VITALS: BP 133/66; PULSE 91; RESP 16; TEMP 36.7; O2SAT 96; BMI 35.2
--- NOTE | 2025-04-25 10:00 | MHC.PC.OV ---
Vital Signs 04/25/25 10:00 Height 6 ft 1 in Weight 267 lb 2 oz BMI 35.2 BP 133/66 Blood Pressure Location Lt brachial Position Sitting Respiration 16 Pulse 91 Pulse Source Pulse Oximeter Temp 98.1 F Temp Source Temporal Artery Scan Pulse Oximetry (%) 96 Oxygen Delivery Method Room Air Intake Visit Reasons: establish care Medical Van Driver Required: No Accompanied by: Self / Same As Patient Allergies terazosin Allergy (Mild, Verified 04/25/25 10:24) rash NSAIDS (Non-Steroidal Anti-Inflamma Adverse Reaction (Severe, Verified 04/25/25 10:24) stomach bleed semaglutide (From Ozempic) Adverse Reaction (Severe, Verified 04/25/25 10:24) Diarrhea Fexwdno-XJI-BfQ Reductase Inhibitor Adverse Reaction (Severe, Verified 04/25/25 10:24) Back Pain insulin lispro (From Humalog Mix) Adverse Reaction (Intermediate, Verified 04/25/25 10:24) Weakness insulin lispro protamine (From Humalog Mix) Adverse Reaction (Intermediate, Verified 04/25/25 10:24) Weakness insulin glargine (From Toujeo SoloStar U-300 Insulin) Adverse Reaction (Mild, Verified 04/25/25 10:24) Weakness lantus Adverse Reaction (Intermediate, Uncoded 04/25/25 10:24) Weakness Medication List - Last Reconciled 04/25/25 by Lydia Mota PA-C alirocumab (Praluent Pen) 150 mg subcut Q2W 4 weeks aspirin 81 mg PO DAILY blood sugar diagnostic As directed empagliflozin (Jardiance) 25 mg PO DAILY 30 days finasteride 5 mg PO BEDTIME 90 days flash glucose scanning reader (SampalRxStyle Buck 14 Day Rhododendron) As directed flash glucose sensor (FreeStyle Buck 14 Day Sensor kit) As directed FreeStyle Buck 3 Plus Sensor (blood-glucose sensor) every 15 days NS FreeStyle Buck 3 Rhododendron (blood-glucose,circular sawyer helper,cont) As directed NS lancets As directed metoprolol tartrate 50 mg PO BID pen needle, diabetic As directed 4 times a day pioglitazone 30 mg PO DAILY Repatha SureClick (evolocumab) 140 mg subcut Q2W NS sacubitril-valsartan 24-26 mg (Entresto) 1 tab PO BID silodosin 8 mg PO BEDTIME 90 days Tresiba FlexTouch U-200 (insulin degludec) 50 units (0.25 mL) subcut BEDTIME NS Tobacco use date assessed: 04/25/25 Fall risk assessment: No Falls in past year Last assessed Fall Risk: 04/25/25 Dental Screening Dental Screen Date: 04/25/25 Did you have a dental visit in the last 12 months?: No Did you have a dental problem in the last 6 months where you did not have access to dental care?: No Was dental information given to patient?: Patient has dentist HPI establish care HPI Details The patient is a 75-year-old male presenting for the establishment of primary care and management of chronic conditions. The patient has a history of hypertension, ischemic cardiomyopathy, and coronary artery disease, with a heart stent placed in 2006 and a triple coronary artery bypass grafting in April 2021 at [facility]. He is currently on aspirin and metoprolol for these conditions. The patient has type 2 diabetes mellitus, which has been challenging to manage, with a hemoglobin A1c of 11.6 in January 2025, recently increasing to 12.8. He is currently on Jardiance, pioglitazone, and Tresiba for diabetes management. The patient has a history of hyperlipidemia, managed with Repatha, and a multinodular goiter and vitamin D deficiency, for which he is receiving appropriate treatment. The patient has a history of prostate surgery for benign prostatic hyperplasia, treated with a laser procedure, and an elevated PSA, which is being monitored. The patient reports peripheral edema, particularly in the legs, and an abdominal hernia, with his training engineer, Dr. Ames, aware of the leg swelling. Social history - Housing: Lives alone, manages household tasks independently. - Mobility: Occasionally uses a walking stick for knee swelling. [facility] Medical History (Updated 04/25/25 @ 12:15 by Lydia Mota PA-C) Umbilical hernia Peripheral edema Multinodular goiter (nontoxic) Ischemic cardiomyopathy CAD (coronary artery disease) Left leg swelling Multinodular thyroid Goiter Elevated PSA Vitamin D deficiency HLD (hyperlipidemia) HTN (hypertension) T2DM (type 2 diabetes mellitus) Surgical History Hx of heart bypass surgery History of prostate surgery H/O heart artery stent Family History Father No problems noted. Mother No problems noted. Social History Household Members: None Housing: House Are you a primary aged or disabled carer to a significant other at home: No Do you presently have visiting nurse or other home services: No 75 years or older and lives alone: Yes Alcohol intake: current Alcohol intake frequency: holidays/special occasions only Patient Tobacco Use Status: Never used Tobacco service: Yes Current occupational status: retired Cognitive needs: Yes (walking stick) Hearing needs: No Vision needs: Yes (rx glasses) Questionnaire PHQ-9 Over the last 2 weeks, how often have you been bothered by any of the following problems? 1. Little interest or pleasure in doing things: not at all 2. Feeling down, depressed, or hopeless: not at all 3. Trouble falling or staying asleep, or sleeping too much: not at all 4. Feeling tired or having little energy: not at all 5. Poor appetite or overeating: not at all 6. Feeling bad about yourself - or that you are a failure or have let yourself or your family down: not at all 7. Trouble concentrating on things, such as reading the newspaper or watching television: not at all 8. Moving or speaking so slowly that other people could have noticed. Or the opposite - being so fidgety or restless that you have been moving around a lot more than usual: not at all 9. Thoughts that you would be better off or of hurting yourself in some way: not at all Total score: 0 Depression Screening Interpretation: Negative Depression Screening Done: Yes 57330 - PHQ-9 Billing: Yes Source: Developed by Drs. Marvin Zavala, Carolee Flores, Frank Martinez and colleagues, with an educational alaina from [employer]. Thrive Questionnaire Date Thrive assessed: 04/25/25 I am a: Patient What is your living situation today?: I have a steady place to live Within the past 12 months, did the food you bought not last and you didn't have the money to get more?: Never true Within the past 12 months, did you worry whether your food would run out before you got money to buy more?: Never true Do you have trouble paying for medicines?: No Do you have trouble getting transportation to medical appointments?: No Do you have trouble paying your heating and electricity bill?: No Do you have trouble taking care of your child, family member or friend?: No Do you have trouble with day-to-day activities such as bathing, preparing meals, shopping, managing finances, etc.?: No Are you currently unemployed and looking for a job?: No Are you interested in more education?: No Please select the resources that you would like help with: None Currently or been in a relationship where the following occur: No concerns reported THRIVE Score: 0 AUDIT C Alcohol Use Questionnaire (AUDIT-C) 1. How often do you have a drink containing alcohol?: Monthly or less 2. How many drinks containing alcohol do you have on a typical day when you are drinking?: 1 or 2 3. How often do you have six or more drinks on one occasion?: Never Total Score: 1 Score Reviewed/Action Taken: No MARCE-7 AMB Questionnaire MARCE-7 Date MARCE - 7 assessed: 04/25/25 Feeling nervous, anxious, or on edge: 0 = Not at all Not being able to stop or control worryin = Not at all Worrying too much about different things: 0 = Not at all Trouble relaxin = Not at all Being so restless that it is hard to sit still: 0 = Not at all Becoming easily annoyed or irritable: 0 = Not at all Feeling afraid as if something awful might happen: 0 = Not at all Total MARCE-7 score (0-4 normal; 5-9 mild; 10-14 moderate; 15-21 severe): 0 Source: Developed by Drs. Marvin Zavala, Carolee Flores, Frank Martinez and colleagues, with an educational alaina from [employer]. MARCE-7 Assessment Billing MARCE-7 Assessment Tool: MARCE-7 Assessment 72464 Review of Systems Const Details: - Cardiovascular: Reports peripheral edema. Denies chest pain. - Musculoskeletal: Reports knee swelling. Denies joint pain. - Dermatological: Reports recent blister outbreak, resolving with antibiotics. All systems reviewed & are unremarkable except as noted in HPI and below Physical exam (Primary Care) Vital Signs: Last Vital Signs Temp 98.1 F 04/25/25 10:00 Pulse 91 04/25/25 10:00 Resp 16 04/25/25 10:00 BP 133/66 04/25/25 10:00 Pulse Ox 96 04/25/25 10:00 Oxygen Delivery Method Room Air 04/25/25 10:00 Care Plan Goal for BP management: <140/90 at Goal BMI result Body Mass Index 35.2 BMI Assessment/Plan discussion: High BMI High, discussed plan: lifestyle, weight reduction, dietary, physical activity, alcohol moderation and other Tobacco/Smoking Status: Tobacco use Status Tobacco use date assessed 04/25/25 04/25/25 10:04 Patient Tobacco Use Status Never used Tobacco 04/25/25 10:18 PHQ-9: PHQ-9 Score PHQ-9: Total score 0 04/25/25 11:01 Depression Screening Interpretation: Negative Thrive Assessment: Date of Thrive Assessment Date Thrive assessed 04/25/25 04/25/25 10:04 Currently or been in a relationship where the following occur: No concerns reported Const Other: Appearance: Alert. Oriented X3. No acute distress. Head: Normal external exam. Normocephalic. Atraumatic. Eyes: Pupils are equal, round, and reactive to light. Extraocular movements intact. Conjunctiva and sclera normal. Eyelids normal. Ears: External auditory canal normal. Tympanic membranes normal. Throat: Pharynx normal. Uvula midline. Moist mucous membranes. Neck: Normal inspection. Neck supple. Full range of motion. No adenopathy. Thyroid Normal. No meningeal signs. No neck mass noted. Cardiovascular: Normal heart rate and rhythm. Heart sound normal. No murmurs noted. Pulses normal throughout. Respiratory: No respiratory distress. Painless inspiration. Breath sounds normal. No wheezes/rales/rhonchi noted. Chest nontender. No accessory muscle usage noted or decreased air movement noted. Abdomen: Soft and nontender. Bowel sounds normal in all 4 quadrants. No distention noted. No organomegaly noted. No visible injury noted. Abdominal hernia noted. Back: No costovertebral angle tenderness. Full range of motion noted. Skin: Skin warm and dry. Normal skin color. Normal skin turgor. No rashes/lesions/lacerations noted. Extremities: Lower extremity edema noted, mostly in the knee. Extremities exhibit normal range of motion. Extremities nontender. Neuro: Oriented X 3. No motor deficit. No sensory deficit. Reflexes normal. Results AMB Hemoglobin A1c AMB Hemoglobin A1c 12.8 % Last Edit by Aminah Farley MA on 04/25/25 10:59 Results Reviewed Results Reviewed: Laboratory Last Values Hgb A1c (Clinic) 12.8 % (4.0-6.0) H 04/25/25 10:52 - Labs: Hemoglobin A1c 12.8, indicating poor glycemic control. Coding Level of Care Code New Pt Level 4 (71501) Complex EM visit Add On G2211 Diagnoses Hypertension, unspecified type I10 Hypertension type: unspecified Type 2 diabetes mellitus with hyperglycemia, with long-term current use of insulin E11.65; Z79.4 Diabetes mellitus marine oil terminal superintendent insulin use: with usp use Diabetes mellitus complication status: with hyperglycemia Hyperlipidemia, unspecified hyperlipidemia type E78.5 Hyperlipidemia type: unspecified Peripheral edema R60.0 Umbilical hernia K42.9 Additional Codes MARCE-7 Assessment Billing - MARCE-7 Assessment Tool: MARCE-7 Assessment 86406 ([id number]) PHQ-9 - 36969 - PHQ-9 Billing: Yes ([id number]) Time Spent (min) 50 Assessment & Plan Assessment & Plan (1) HTN (hypertension): Code(s): I10 - Essential (primary) hypertension Category: Medical Qualifiers: Hypertension type: unspecified Qualified Code(s): I10 - Essential (primary) hypertension Plan: The patient's hypertension is currently managed with metoprolol, and no changes were discussed during this visit. (2) T2DM (type 2 diabetes mellitus): Code(s): E11.9 - Type 2 diabetes mellitus without complications Category: Medical Qualifiers: Diabetes mellitus marine oil terminal superintendent insulin use: with marine oil terminal superintendent use Diabetes mellitus complication status: with hyperglycemia Qualified Code(s): E11.65 - Type 2 diabetes mellitus with hyperglycemia; Z79.4 - care home (current) use of insulin Plan: The patient's diabetes management is challenging, with a recent hemoglobin A1c of 12.8. He is currently on Jardiance, pioglitazone, and Tresiba, but further adjustments may be needed after consultation with Dr. Montejo. (3) HLD (hyperlipidemia): Code(s): E78.5 - Hyperlipidemia, unspecified Category: Medical Qualifiers: Hyperlipidemia type: unspecified Qualified Code(s): E78.5 - Hyperlipidemia, unspecified Plan: The patient is on Repatha for hyperlipidemia management, and no changes were discussed during this visit. (4) Peripheral edema: Code(s): R60.0 - Localized edema Category: Medical Plan: The patient reports peripheral edema, particularly in the legs, and is under the care of a training engineer who is aware of this condition. (5) Umbilical hernia: Code(s): K42.9 - Umbilical hernia without obstruction or gangrene Category: Medical Plan: The patient has an abdominal hernia, and was advised to inform the clinician if it causes any problems for potential referral to a general surgeon. Plan Plan Patient was informed and verbally consented to the use of an ambient scribe for clinic note documentation during this visit. 1. Hypertension The patient's hypertension is currently managed with metoprolol, and no changes were discussed during this visit. 2. Type 2 Diabetes Mellitus The patient's diabetes management is challenging, with a recent hemoglobin A1c of 12.8. He is currently on Jardiance, pioglitazone, and Tresiba, but further adjustments may be needed after consultation with Dr. Montejo. 3. Coronary Artery Disease The patient is on aspirin for coronary artery disease management, with no changes discussed during this visit. 4. Hyperlipidemia The patient is on Repatha for hyperlipidemia management, and no changes were discussed during this visit. 5. Peripheral Edema The patient reports peripheral edema, particularly in the legs, and is under the care of a training engineer who is aware of this condition. 6. Abdominal Hernia The patient has an abdominal hernia, and was advised to inform the clinician if it causes any problems for potential referral to a general surgeon. During the visit, we discussed the patient's uncontrolled diabetes, with a hemoglobin A1c of 12.8, and the need for potential medication adjustments after consultation with Dr. Montejo. We also reviewed the patient's current medications for hypertension, coronary artery disease, and hyperlipidemia, with no changes made at this time. The patient was advised to monitor his peripheral edema and abdominal hernia, and to inform us if any issues arise. Orders: Orders Liver Panel Today Z00.00 - Encounter for general adult medical examination without abnormal findings TSH reflex Free T4 Today Z00.00 - Encounter for general adult medical examination without abnormal findings Vitamin D 25-OH Total Today Z00.00 - Encounter for general adult medical examination without abnormal findings PSA,Total (Free>4and<10) Today Z00.00 - Encounter for general adult medical examination without abnormal findings AMB Hemoglobin A1c Today Z13.9 - Encounter for screening, unspecified C Reactive Protein Today Z00.00 - Encounter for general adult medical examination without abnormal findings Complete Blood Count Auto Diff Today Z00.00 - Encounter for general adult medical examination without abnormal findings Comprehensive [place]. Panel Fast Today Z00.00 - Encounter for general adult medical examination without abnormal findings Magnesium Today Z00.00 - Encounter for general adult medical examination without abnormal findings Lipid Panel Today Z00.00 - Encounter for general adult medical examination without abnormal findings Vitamin B12 and Folate Today Z00.00 - Encounter for general adult medical examination without abnormal findings Medications: Discontinued flash glucose scanning reader (FreeStyle Buck 14 Day Rhododendron) Discontinued Reason: Doctor's Order As directed 1 ea 0RF flash glucose sensor (FreeStyle Buck 14 Day Sensor kit) Discontinued Reason: Doctor's Order As directed 2 ea 11RF FreeStyle Buck 3 Rhododendron (blood-glucose,circular sawyer helper,cont) Discontinued Reason: Doctor's Order As directed 1 ea 0RF NS E11.65 - Type 2 diabetes mellitus with hyperglycemia, Z79.4 - ferry terminal agent (current) use of insulin FreeStyle Buck 3 Plus Sensor (blood-glucose sensor) Discontinued Reason: Doctor's Order every 15 days 6 ea 3RF NS Patient Instructions: - Monitor blood sugar levels and document dietary intake for review with Dr. Montejo. - Follow up with Dr. Montejo in two weeks for diabetes management review. - Schedule a follow-up appointment in three months for ongoing care. - Report any worsening of peripheral edema or issues with the abdominal hernia.
--- OUTSIDE RECORDS SUMMARY | 2025-04-25 10:42 | XMS_ITS | Clinical Summary ---
Author Organization [facility] Facility Address [address] [place] [id number] Care Team Providers Care Post Closer Name Role Phone Edin Lee MD Primary Care Provider [phone] Social History Tobacco Use Types Packs/Day Years Used Date Smoking Tobacco: Never Assessed Sex and Gender Information Value Date Recorded Sex Assigned at Not on file Legal Sex Male 2:14 PM EDT Gender Identity Not on file Sexual Orientation Not on file Plan of Treatment Health Maintenance Due Date Last Done Comments Pneumococcal Vaccine: 50+ Ye ars (1 of 1 - PCV) 02/25/1998 Influenza Vaccine (#1) 2025 Hepatitis B Vaccine Aged Out No longe r eligible based on patient's age to complete this topic Insurance Medicare Medicare Care Teams Post Closer Relationship Specialty Start Date End Date Edin Lee MD [address] [place] [address] PCP - General Internal Medicine 03/23/22
== END 2025-04-25 10:55 | disposition home or self-care (01) ==
LOC: HO.HMCSH 09:58
PROVIDERS: PCP Internal Medicine; Visit Provider Physician Assistant Medical
DX: I10 Essential (primary) hypertension (principal); E11.65 Type 2 diabetes mellitus with hyperglycemia; Z79.4 Long term (current) use of insulin; E78.5 Hyperlipidemia, unspecified; R60.0 Localized edema; K42.9 Umbilical hernia without obstruction or gangrene; Z13.9 Encounter for screening, unspecified

== ENCOUNTER → 2025-04-25 09:58 | Outpatient (BNVA) | payer MEDICARE, SELFPAY | PROVIDERS: PCP Internal Medicine; Visit Provider Physician Assistant Medical | DX: Z76.89 Persons encountering health services in other specified circumstances (principal); I10 Essential (primary) hypertension; E11.65 Type 2 diabetes mellitus with hyperglycemia; E78.5 Hyperlipidemia, unspecified; R60.0 Localized edema; K42.9 Umbilical hernia without obstruction or gangrene; Z79.4 Long term (current) use of insulin | CPT/HCPCS: 83036; 96127; 99202 ==

== ENCOUNTER 2025-04-27 09:12 | Outpatient (REF) | payer MEDICARE, SELFPAY ==
--- OUTSIDE RECORDS SUMMARY | 2025-04-27 10:01 | XMS_ITS | Clinical Summary ---
Author Organization [facility] Facility Address [address] [place] [id number] Care Team Providers Care Missile Inspector Name Role Phone Edin Lee MD Primary Care Provider Social History Tobacco Use Types Packs/Day Years [...] this topic Insurance Medicare Medicare Care Teams Missile Inspector Relationship Specialty Start Date End Date Edin Lee MD [address] [place] [address] PCP - General Internal Medicine 03/23/22
[2025-04-27 10:07] LABS: MANUAL DIFF FLAG NO
[2025-04-27 10:20] LABS: Hematocrit 49.1 % (42.0-52.0); Hemoglobin 16.9 g/dl (14.0-18.0); Imm Gran Abs Auto 0.06 X10*3/uL (0.00-0.03); Imm Gran Pct Auto 0.7 % (0.0-0.4); Lymphocytes Absolute Auto 1.6 X10*3/uL (1.2-4.9); Mean Corpuscular HGB Conc 34.4 g/dl (31.0-36.0); Mean Corpuscular Hemoglobin 28.8 pg (27.0-33.0); Mean Corpuscular Volume 83.6 fL (80.0-98.0); NRBC Abs Auto 0.000 X10*3/uL (0.0-0.012); NRBC Pct Auto 0.0 /100WBC (0.0-0.2); Platelet Count 196 X10*3/uL (160-400); Red Blood Count 5.87 X10*6/uL (4.60-5.80); White Blood Count 8.2 X10*3/uL (4.8-10.8)
[2025-04-27 11:28] LABS: Alanine Aminotransferase 12 U/L (0-40); Albumin Level 4.0 g/dL (3.5-5.0); Alkaline Phosphatase 99 U/L (39-117); Anion Gap 16 (12-20); Aspartate Amino Transferase 21 U/L (5-37); Blood Urea Nitrogen 15 mg/dL (9-16); Calcium 9.1 mg/dL (8.4-10.2); Carbon Dioxide 25 mmol/L (22-29); Chloride 102 mmol/L (96-108); Cholesterol 130 mg/dL (<200); Estimated Glomerular Filt Rate > 60; HDL Cholesterol 39 mg/dL (>40); Magnesium 2.1 mg/dL (1.6-2.6); Potassium 4.5 mmol/L (3.3-5.1); Sodium 138 mmol/L (135-145); Total Protein 7.2 g/dL (6.5-8.0); Triglycerides 126 mg/dL (<150)
[2025-04-27 11:29] LABS: PSA,Total (Free>4and<10) 2.98 ng/mL (0.00-4.00)
[2025-04-27 11:49] LABS: Folate 9.7 ng/mL (> or = 4.0); Vitamin B12 291 pg/mL (200-900)
== END 2025-04-27 09:13 | disposition home or self-care (01) ==
LOC: HO.HMGCLDS 09:12
PROVIDERS: PCP Internal Medicine; Visit Provider Physician Assistant Medical
DX: Z00.00 Encounter for general adult medical examination without abnormal findings (principal); Z12.5 Encounter for screening for malignant neoplasm of prostate; Z13.6 Encounter for screening for cardiovascular disorders
CPT/HCPCS: 36415; 80053; 80061; 80076; 82248; 82306; 82607; 82746; 83735; 84153; 84443; 85025; 86140

== ENCOUNTER 2025-05-09 10:49 | Outpatient (AMB) | payer MEDICARE, SELFPAY ==
[2025-05-09 10:51] VITALS: BP 122/76; PULSE 96; O2SAT 92; BMI 35.2
--- NOTE | 2025-05-09 10:51 | A.OFFVIS_ITS ---
Vital Signs 05/09/25 10:51 Height 6 ft 1 in Weight 266 lb 12.149 oz BMI 35.2 BP 122/76 Blood Pressure Location Rt brachial Position Sitting Pulse 96 Pulse Source Pulse Oximeter Pulse Oximetry (%) 92 Oxygen Delivery Method Room Air Intake Visit Reasons: T2DM Intake Note: Patient presents today to establish treatment for Type 2 Diabetes Mellitus: Patient reports having pain joint, muscle and weakness: Last seen Dr Rose Last Diabetic eye exam was on: 01/16/2025, [facility] Last Podiatry exam was on: Patient does not see a Survey Director Most recent HbA1c: 12.8%, 04/25/2025 Random Glucose: 265 mg/dL, fasting Staff Toxicologist Required: No Accompanied by: Self / Same As Patient Allergies terazosin Allergy (Mild, Verified 05/09/25 10:53) rash NSAIDS (Non-Steroidal Anti-Inflamma Adverse Reaction (Severe, Verified 05/09/25 10:53) stomach bleed semaglutide (From Ozempic) Adverse Reaction (Severe, Verified 05/09/25 10:53) Diarrhea Awchfzc-YJY-YvG Reductase Inhibitor Adverse Reaction (Severe, Verified 05/09/25 10:53) Back Pain insulin lispro (From Humalog Mix) Adverse Reaction (Intermediate, Verified 05/09/25 10:53) Weakness insulin lispro protamine (From Humalog Mix) Adverse Reaction (Intermediate, Verified 05/09/25 10:53) Weakness insulin glargine (From Toujeo SoloStar U-300 Insulin) Adverse Reaction (Mild, Verified 05/09/25 10:53) Weakness lantus Adverse Reaction (Intermediate, Uncoded 05/09/25 10:53) Weakness HPI Comments Details: The patient has had diabetes for approximately ten years, although it could be longer. He report adverse reactions to several diabetes medications, including severe diarrhea with the initial dose of Ozempic and muscle weakness and pain with Insulin Lispro and Tresiba. The patient stopped taking Tresiba two days ago and reports significant improvement in muscle pain and mobility. He reports now measuring his blood sugar more than once daily in the morning with current blood glucose levels have been between 150-200 mg/dL, with higher readings noted as pain increased. The patient experiences extensive muscle and joint pain, affecting mobility and daily activities. [facility] Medical History (Updated 04/25/25 @ 12:15 by Lydia Mota PA-C) Umbilical hernia Peripheral edema Multinodular goiter (nontoxic) Ischemic cardiomyopathy CAD (coronary artery disease) Left leg swelling Multinodular thyroid Goiter Elevated PSA Vitamin D deficiency HLD (hyperlipidemia) HTN (hypertension) T2DM (type 2 diabetes mellitus) Surgical History Hx of heart bypass surgery History of prostate surgery H/O heart artery stent Family History Father No problems noted. Mother No problems noted. Social History Household Members: None Housing: House Are you a primary health care sanitary technician to a significant other at home: No Do you presently have visiting nurse or other home services: No 75 years or older and lives alone: Yes Alcohol intake: current Alcohol intake frequency: holidays/special occasions only Patient Tobacco Use Status: Never used Tobacco service: Yes Current occupational status: retired Cognitive needs: Yes (walking stick) Hearing needs: No Vision needs: Yes (rx glasses) Review of Systems Const Details: - Positive for muscle weakness and joint pain - Positive for gastrointestinal upset with certain medications - Negative for recent hypoglycemia Physical Exam Exam Exam: GENERAL: Alert and oriented x 3. NAD HENT: Moist mucous membranes. No scleral icterus. LUNGS: No respiratory distress ABDOMEN: Soft, non-tender +bs EXTREMITIES: No edema. SKIN: No rashes or lesions. Onychomycosis of toenails NEUROLOGIC: Normal monofilament sensation in both feet Vital Signs: Last Vital Signs Pulse 96 05/09/25 10:51 BP 122/76 05/09/25 10:51 Pulse Ox 92 05/09/25 10:51 Oxygen Delivery Method Room Air 05/09/25 10:51 BMI result Body Mass Index 35.2 Results Reviewed Results Reviewed: Laboratory Last Values Glucose (Clinic) 265 mg/dL (60-115) H 05/09/25 10:59 Previous labs 04/27/2025 GFR more than 60 Vitamin-D 32.8 LDL 66 HDL 39 TSH 1.26 Most recent A1c 12.8 on a 03/18/2025, previously 11.6 on 02/07/25 Assessment & Plan Assessment & Plan (1) T2DM (type 2 diabetes mellitus): Code(s): E11.9 - Type 2 diabetes mellitus without complications Category: Medical Qualifiers: Diabetes mellitus half-way insulin use: with technician terminal and repeater use Diabetes mellitus complication status: with hyperglycemia Qualified Code(s): E11.65 - Type 2 diabetes mellitus with hyperglycemia; Z79.4 - tank terminal gauger (current) use of insulin Plan: Assessment - Diabetes with complications: Poor glycemic control, challenging due to medication side effects - Musculoskeletal pain likely exacerbated by diabetes medications - Heart failure with reduced ejection fraction Recommendations - Continue Jardiance 25 mg daily - Start Repaglinide 30 minutes before meals, three times a day - Consider reintroducing Metformin at a lower dose in the future - Refer to podiatry for foot care and management of skin and nail issues - Monitor blood glucose levels and adjust as necessary - Discuss dietary improvements and physical activity within patient?s limitations - Follow up on medication tolerance and blood glucose control - I have advised the patient to measure blood glucose fasting and 2 hours after meals to evaluate for the efficacy of repaglinide (2) Microalbuminuria: Code(s): R80.9 - Proteinuria, unspecified Category: Medical Plan: We will obtain microalbumin ratio as the last 1 was in 2023 Orders: Orders Microalbumin, Random (w Creat) Today E11.65 - Type 2 diabetes mellitus with hyperglycemia, Z79.4 - [facility] (current) use of insulin Referrals Podiatry Referral E11.65 - Type 2 diabetes mellitus with hyperglycemia, Z79.4 - [facility] (current) use of insulin Medications: New repaglinide administer within 30 minutes of a meal or snack 1 mg PO TID 90 tabs 3RF Discontinued pioglitazone Discontinued Reason: Doctor's Order 30 mg PO DAILY 90 tabs 3RF Tresiba FlexTouch U-200 (insulin degludec) Discontinued Reason: Patient no longer taking 50 units (0.25 mL) subcut BEDTIME 9 mL 3RF NS E11.65 - Type 2 diabetes mellitus with hyperglycemia, Z79.4 - tank terminal gauger (current) use of insulin Patient Instructions: Please take Repaglinide within 30 minutes prior to each main meal, do not take the medication if the meal is skipped. Continue Giandiance 25 mg daily Stop Tresiba Check your blood glucose while fasting and 2 hours post meal Get the urine testing done Coding Level of Care Code New Pt Level 4 (35231) Diagnoses Type 2 diabetes mellitus with hyperglycemia, with long-term current use of insulin E11.65; Z79.4 Diabetes mellitus half-way insulin use: with half-way use Diabetes mellitus complication status: with hyperglycemia Microalbuminuria R80.9
[2025-05-09 11:05] LABS: Glucose, Whole Blood 265 mg/dL (60-115)
--- OUTSIDE RECORDS SUMMARY | 2025-05-09 13:31 | XMS_ITS | Clinical Summary ---
Author Organization [facility] Facility Address [address] [place] [id number] Care Team Providers Care Senior Brand Manager Name Role Phone Edin Lee MD Primary Care Provider [phone] Social History Tobacco Use Types Packs/Day Years [...] this topic Insurance Medicare Medicare Care Teams Senior Brand Manager Relationship Specialty Start Date End Date Edin Lee MD [address] [place] [address] PCP - General Internal Medicine 03/23/22
== END 2025-05-09 11:58 | disposition home or self-care (01) ==
LOC: HO.ENCR 10:50
PROVIDERS: PCP Internal Medicine; Visit Provider Student in an Organized Health Care Education/Training Program
DX: E11.65 Type 2 diabetes mellitus with hyperglycemia (principal); Z79.4 Long term (current) use of insulin; R80.9 Proteinuria, unspecified
CPT/HCPCS: 99204

== ENCOUNTER → 2025-05-09 10:49 | Outpatient (BNVA) | payer MEDICARE, SELFPAY | PROVIDERS: PCP Internal Medicine; Visit Provider Student in an Organized Health Care Education/Training Program | DX: E11.65 Type 2 diabetes mellitus with hyperglycemia (principal); Z79.4 Long term (current) use of insulin; R80.9 Proteinuria, unspecified | CPT/HCPCS: 82947; 99202 ==

== ENCOUNTER 2025-05-10 11:29 | Outpatient (REF) | payer MEDICARE, SELFPAY ==
--- OUTSIDE RECORDS SUMMARY | 2025-05-10 15:52 | XMS_ITS | Clinical Summary ---
Author Organization [facility] Facility Address [address] [place] [id number] Care Team Providers Care Wire Weaver Helper Name Role Phone Edin Lee MD Primary Care Provider [phone] Social History Tobacco Use Types Packs/Day Years [...] this topic Insurance Medicare Medicare Care Teams Wire Weaver Helper Relationship Specialty Start Date End Date Edin Lee MD [address] [place] [address] PCP - General Internal Medicine 03/23/22
[2025-05-10 18:10] LABS: Microalbum/Creatinine Ratio Ur 169.1 ug/mg cr (<30)
== END 2025-05-10 11:30 | disposition home or self-care (01) ==
LOC: HO.HMGCLDS 11:29
PROVIDERS: Visit Provider Student in an Organized Health Care Education/Training Program
DX: E11.65 Type 2 diabetes mellitus with hyperglycemia (principal); Z79.4 Long term (current) use of insulin
CPT/HCPCS: 82043; 82570

== ENCOUNTER 2025-05-14 11:21 | Outpatient (AMB) | payer MEDICARE, SELFPAY ==
--- NOTE | 2025-05-14 11:26 | MHC.OFFVIS ---
Vital Signs 05/14/25 11:27 Height 6 ft 1 in Weight 256 lb BMI 33.8 Intake Visit Reasons: FRONTEND ENGINEER: Diabetic foot exam Intake Note: Edin is a 75 year old male who presents today as a New Patient with a history of T2DM for a Diabetic Foot Exam. He mentions his glucose was 214 when taken this morning. Patient reports slight bilateral numbness in his foor but does not feel a tingling senstation. Allergies terazosin Allergy (Mild, Verified 05/14/25 11:28) rash insulin degludec (From Tresiba FlexTouch U-100) Allergy (Verified 05/14/25 11:28) Muscle Pain NSAIDS (Non-Steroidal Anti-Inflamma Adverse Reaction (Severe, Verified 05/14/25 11:28) stomach bleed semaglutide (From Ozempic) Adverse Reaction (Severe, Verified 05/14/25 11:28) Diarrhea Nyihbrs-XOH-JoU Reductase Inhibitor Adverse Reaction (Severe, Verified 05/14/25 11:28) Back Pain insulin lispro (From Humalog Mix) Adverse Reaction (Intermediate, Verified 05/14/25 11:28) Weakness insulin lispro protamine (From Humalog Mix) Adverse Reaction (Intermediate, Verified 05/14/25 11:28) Weakness insulin glargine (From Toujeo SoloStar U-300 Insulin) Adverse Reaction (Mild, Verified 05/14/25 11:28) Weakness lantus Adverse Reaction (Intermediate, Uncoded 05/09/25 10:53) Weakness Medication List - Last Reconciled 05/14/25 by Charan Do DPM alirocumab (Praluent Pen) 150 mg subcut Q2W 4 weeks aspirin 81 mg PO DAILY blood sugar diagnostic As directed empagliflozin (Jardiance) 25 mg PO DAILY 30 days finasteride 5 mg PO BEDTIME 90 days lancets As directed metoprolol tartrate 50 mg PO BID pen needle, diabetic As directed 4 times a day repaglinide 1 mg PO TID Repatha SureClick (evolocumab) 140 mg subcut Q2W NS sacubitril-valsartan 24-26 mg (Entresto) 1 tab PO BID silodosin 8 mg PO BEDTIME 90 days HPI HPI FRONTEND ENGINEER: Diabetic foot exam: Details: The patient is a 75-year-old male past medical history of diabetes mellitus type 2, coronary artery disease s/p triple bypass, presents for diabetic foot evaluation and bilateral lower extremity leg swelling. The patient reports bilateral lower extremity edema, which initially started in the left foot and gradually involved the right foot. The swelling is described as a tightness rather than pain, with occasional numbness in the toes. The patient has been prescribed antibiotics in the past for left leg infection. He also states that he has worn compression stockings in the past however stopped new to arthritis and stiffness of the joints which has improved recently after changing his diabetic medication. He denies history of ulcerations to his feet. Endorses numbness, tingling. Also endorses lower back pain. Patient notes difficulty trimming his nails due to his arthritis. [facility] Medical History (Updated 05/14/25 @ 12:24 by Charan Do DPM) Umbilical hernia Peripheral edema Multinodular goiter (nontoxic) Ischemic cardiomyopathy CAD (coronary artery disease) Left leg swelling Multinodular thyroid Goiter Elevated PSA Vitamin D deficiency HLD (hyperlipidemia) HTN (hypertension) T2DM (type 2 diabetes mellitus) Surgical History Hx of heart bypass surgery History of prostate surgery H/O heart artery stent Family History Father No problems noted. Mother No problems noted. Social History Household Members: None Housing: House Are you a primary healthcare network pricing consultant to a significant other at home: No Do you presently have visiting nurse or other home services: No 75 years or older and lives alone: Yes Alcohol intake: current Alcohol intake frequency: holidays/special occasions only Patient Tobacco Use Status: Never used Tobacco service: Yes Current occupational status: retired Cognitive needs: Yes (walking stick) Hearing needs: No Vision needs: Yes (rx glasses) Review of Systems Const All systems reviewed & are unremarkable except as noted in HPI and below Physical Exam Vital Signs: BMI result Body Mass Index 33.8 Extrem Other: *Bilateral Lower Extremity Focused Diabetic Foot Exam Vascular: DP/PT biphasic on Doppler bilaterally, CFT<3s to digits, TG warm to cool, +1 pitting pretibial edema bilaterally, pedal hair absent Derm: Skin: Right hallux medial nail border with dry blood. No active drainage. No erythema or clinical signs of infection. Ingrown left hallux medial and lateral nail border. Interdigital spaces: Clear, no maceration or fungal infection. Nails: Dystrophic thickened discolored elongated toenails x 10. Neuro: Cornish-elmira monofilament (10g) test []/10 intact to right foot, []/10 intact to left foot. Msk: Deformities: Rigid hammertoe deformity 2nd and 3rd digit PIPJ bilaterally. Decreased plantar flexion at the MPJ 2 through 5 bilaterally. First MTPJ range of motion 5 degrees dorsiflexion bilaterally. No pain on range of motion. Muscle strength: 4+/5 in all muscle groups. Gait: Normal, no antalgic or steppage gait observed. Footwear Assessment: Shoes inspected; appropriate fit, no excessive wear, or foreign objects noted. Office Procedures AMB Debridement/Avulsion Podia 47669-Mhbuygrbdtx of Nail 6+ (Debrided elongated thickened toenails x10 bilaterally using sterile nail Nipper. Patient tolerated the procedure well with no complications.) Procedure code (CPT) selection complete Results Reviewed Results Reviewed: Laboratory Tests 04/25/25 10:52 Hgb A1c (Clinic) 12.8 H Assessment & Plan Assessment & Plan (1) T2DM (type 2 diabetes mellitus): Code(s): E11.9 - Type 2 diabetes mellitus without complications Category: Medical Qualifiers: Diabetes mellitus residential insulin use: with middle or intermediate school principal use Diabetes mellitus complication status: with hyperglycemia Qualified Code(s): E11.65 - Type 2 diabetes mellitus with hyperglycemia; Z79.4 - middle or intermediate school principal (current) use of insulin Plan: Risk Stratification: No current ulceration, infection, or pre-ulcerative lesion. The patient has good perfusion noted on Doppler performed bedside. Patient also has mild reduction in sensation to his lower extremities. Patient does not have active risk for diabetic foot complications at this time however due to his digital deformities as well as his elevated A1c, he is at risk of ulcer formation. He was recommended follow up evaluation every 3 months to monitor for preulcerative lesions, until his A1c is well controlled. Recommendations: Continue routine foot care and daily self-inspection. Recommend moisturizing daily. Recommend supportive proper fitting shoe-wear. The patient may require diabetic shoes in the future. Reinforced diabetic foot education and risks from peripheral neuropathy. (2) Hallux rigidus of both feet: Code(s): M20.21 - Hallux rigidus, right foot; M20.22 - Hallux rigidus, left foot Category: Medical Plan: Referred for x-rays bilateral foot. (3) Swelling of both lower extremities: Code(s): M79.89 - Other specified soft tissue disorders Category: Medical Plan: Recommended compression stockings bilaterally. Instructed patient to follow up with his primary care physician and his neurology epilepsy physician regarding bilateral lower extremity edema which can be secondary to a cardiac etiology. (4) Tinea unguium: Code(s): B35.1 - Tinea unguium Category: Medical Plan: Debrided elongated nails x 10. Follow up in 9 weeks for routine care. Patient is at high risk of ulcer formation due to dystrophic nail changes given his A1c and cardiovascular status. (5) Hammertoes of both feet: Code(s): M20.41 - Other hammer toe(s) (acquired), right foot; M20.42 - Other hammer toe(s) (acquired), left foot Category: Medical Plan: Ordered x-rays bilaterally. Discussed the risk of ulcer formation at the tip of his toes due to his deformity. Orders: Orders XR Foot Bboby 3V Today M20.21 - Hallux rigidus, right foot, M20.22 - Hallux rigidus, left foot AMB Debridement/Avulsion Podiatry Today B35.1 - Tinea unguium Coding Level of Care Code New Pt Level 4 (16778) Diagnoses Type 2 diabetes mellitus with hyperglycemia, with long-term current use of insulin E11.65; Z79.4 Diabetes mellitus residential insulin use: with middle or intermediate school principal use Diabetes mellitus complication status: with hyperglycemia Hallux rigidus of both feet M20.21; M20.22 Swelling of both lower extremities M79.89 Tinea unguium B35.1 Hammertoes of both feet M20.41; M20.42 CPT Codes Skin Debridement - CPT: 36836-Yfglmrcurkp of Nail 6+ ([id number]) Time Spent (min) 60
[2025-05-14 11:27] VITALS: BMI 33.8
--- OUTSIDE RECORDS SUMMARY | 2025-05-14 15:24 | XMS_ITS | Clinical Summary ---
Author Organization [facility] Facility Address [address] [place] [id number] Care Team Providers Care Distance Learning Administrator Name Role Phone Edin Lee MD Primary Care Provider [phone] Social History Tobacco Use Types Packs/Day Years [...] this topic Insurance Medicare Medicare Care Teams Distance Learning Administrator Relationship Specialty Start Date End Date Edin Lee MD [address] [place] [address] PCP - General Internal Medicine 03/23/22
== END 2025-05-14 12:13 | disposition home or self-care (01) ==
LOC: HO.HPODS 11:22
PROVIDERS: PCP Internal Medicine; Visit Provider Student in an Organized Health Care Education/Training Program
DX: E11.65 Type 2 diabetes mellitus with hyperglycemia (principal); Z79.4 Long term (current) use of insulin; M20.21 Hallux rigidus, right foot; M20.22 Hallux rigidus, left foot; M79.89 Other specified soft tissue disorders; B35.1 Tinea unguium; M20.41 Other hammer toe(s) (acquired), right foot; M20.42 Other hammer toe(s) (acquired), left foot
CPT/HCPCS: 11721; 99203

== ENCOUNTER → 2025-05-14 11:21 | Outpatient (BNVA) | payer MEDICARE, SELFPAY | PROVIDERS: PCP Internal Medicine; Visit Provider Student in an Organized Health Care Education/Training Program | DX: M20.21 Hallux rigidus, right foot (principal); M20.22 Hallux rigidus, left foot; E11.65 Type 2 diabetes mellitus with hyperglycemia; Z79.4 Long term (current) use of insulin; B35.1 Tinea unguium; M79.89 Other specified soft tissue disorders; M20.41 Other hammer toe(s) (acquired), right foot; M20.42 Other hammer toe(s) (acquired), left foot | CPT/HCPCS: 11721; 99202 ==

== ENCOUNTER 2025-06-06 09:51 | Outpatient (AMB) | payer MEDICARE, SELFPAY ==
[2025-06-06 09:55] VITALS: BP 130/70; PULSE 83; O2SAT 98; BMI 34.8
--- NOTE | 2025-06-06 09:55 | MHC.OFFVIS ---
Vital Signs 06/06/25 09:55 Height 6 ft 1 in Weight 264 lb 1.82 oz BMI 34.8 BP 130/70 Blood Pressure Location Lt brachial Position Sitting Pulse 83 Pulse Source Pulse Oximeter Pulse Oximetry (%) 98 Oxygen Delivery Method Room Air Intake Visit Reasons: Hyperparathyroidism Intake Note: NEW Patient presents today to establish care for Hyperparathryroidism:? No acute complaints reported at this time [employer] Machine Adjuster Required: No Accompanied by: Self / Same As Patient Allergies terazosin Allergy (Mild, Verified 06/06/25 09:57) rash insulin degludec (From Tresiba FlexTouch U-100) Allergy (Verified 06/06/25 09:57) Muscle Pain NSAIDS (Non-Steroidal Anti-Inflamma Adverse Reaction (Severe, Verified 06/06/25 09:57) stomach bleed semaglutide (From Ozempic) Adverse Reaction (Severe, Verified 06/06/25 09:57) Diarrhea Iaviqwz-TTK-IkI Reductase Inhibitor Adverse Reaction (Severe, Verified 06/06/25 09:57) Back Pain insulin lispro (From Humalog Mix) Adverse Reaction (Intermediate, Verified 06/06/25 09:57) Weakness insulin lispro protamine (From Humalog Mix) Adverse Reaction (Intermediate, Verified 06/06/25 09:57) Weakness insulin glargine (From Toujeo SoloStar U-300 Insulin) Adverse Reaction (Mild, Verified 06/06/25 09:57) Weakness lantus Adverse Reaction (Intermediate, Uncoded 06/06/25 09:57) Weakness HPI Comments Details: 74 years old male with past medical history of type 2 diabetes, hypertension, history of thyroid nodules, vitamin-D deficiency, CAD seen in the evaluation and follow-up for type 2 diabetes. Current meds: Jardiance 25 mg daily, repaglinide 30 mg t.i.d. Previous meds: On Metformin 500 mg PO BID-he stopped 2/2 GI side effects, Jardiance 25 mg PO daily-compliant, taking Tresiba 42 units daily-was increased by PCP to 60 still taking 42, says he was intolerant. Intolerant ozempic, not willing to try another GLP. Started glipizide at last visit-gave joint pain. Tresiba previously used, constipation weakness. Pioglitazone- stopped due to no helping with blood sugar control. Hypoglycemia: Denies recent episode of hypoglycemia Has eyes checked yearly, last eye exam has mild retinopathy Podiatry: Referred, pending evaluation Lipids: LDL 66 HDL 39 on 04/27/2025 Interval history 06/06/2025 The patient reports experiencing high blood sugar levels, often over 200 mg/dL in the morning, despite taking medications intended to lower blood sugar. He reports doubt that his sister Trebrandonba his muscle weakness has improved. He does report difficulty in managing diet due to lifestyle and expresses a need to improve dietary habits. He otherwise reports feeling: ?okay? Physical exam: GENERAL: Alert and oriented x 3. NAD HENT: Moist mucous membranes. No scleral icterus. LUNGS: No respiratory distress ABDOMEN: Soft, non-tender +bs EXTREMITIES: No edema. SKIN: No rashes or lesions. Onychomycosis of toenails NEUROLOGIC: Normal monofilament sensation in both feet Labs: Laboratory Tests 04/25/25 05/10/25 10:52 11:43 Hgb A1c (Clinic) 12.8 H Microalb/Creat Ratio 169.1 H CGM data: Unable to obtain full report from [employer] due to technical issues, review of the Buck device showed the patient had been checking his blood sugars twice daily most days with blood sugars averaging 250-280. [facility], LAT[facility] Medical History (Updated 05/14/25 @ 12:24 by Charan Do DPM) Umbilical hernia Peripheral edema Multinodular goiter (nontoxic) Ischemic cardiomyopathy CAD (coronary artery disease) Left leg swelling Multinodular thyroid Goiter Elevated PSA Vitamin D deficiency HLD (hyperlipidemia) HTN (hypertension) T2DM (type 2 diabetes mellitus) Surgical History Hx of heart bypass surgery History of prostate surgery H/O heart artery stent Family History Father No problems noted. Mother No problems noted. Social History Household Members: None Housing: House Are you a primary critical care cns to a significant other at home: No Do you presently have visiting nurse or other home services: No 75 years or older and lives alone: Yes Alcohol intake: current Alcohol intake frequency: holidays/special occasions only Patient Tobacco Use Status: Never used Tobacco service: Yes Current occupational status: retired Cognitive needs: Yes (walking stick) Hearing needs: No Vision needs: Yes (rx glasses) Physical Exam Vital Signs: Last Vital Signs Pulse 83 06/06/25 09:55 BP 130/70 06/06/25 09:55 Pulse Ox 98 06/06/25 09:55 Oxygen Delivery Method Room Air 06/06/25 09:55 BMI result Body Mass Index 34.8 Office Procedures Glucose Monitoring Details Details: See [facility] [address] - Glucose Monitoring, continuous Procedure code (CPT) selection complete Results Reviewed Results Reviewed: Laboratory Last Values Glucose (Clinic) 341 mg/dL (60-115) H 06/06/25 10:20 Assessment & Plan Assessment & Plan (1) T2DM (type 2 diabetes mellitus): Code(s): E11.9 - Type 2 diabetes mellitus without complications Category: Medical Qualifiers: Diabetes mellitus complication status: with hyperglycemia Diabetes mellitus fpc insulin use: with fpc use Qualified Code(s): E11.65 - Type 2 diabetes mellitus with hyperglycemia; Z79.4 - intermediate (current) use of insulin Plan: Assessment Uncontrolled type 2 diabetes Poor glycemic control, challenging due to medication side effects /intolerance. That are very few alternatives remaining for treatment of this patient, we had discussed this in her decided to try a different formulation of short-acting insulin and we will monitor for side effects. Plan - we will start insulin aspart sliding scale, we will monitor for tolerance - Continue Jardiance 25 mg daily - continue Repaglinide 30 minutes before meals, three times a day - Consider reintroducing Metformin at a lower dose in the future - Monitor blood glucose levels at least 4 times per day - Discuss dietary improvements and physical activity within patient?s limitations (2) Microalbuminuria: Code(s): R80.9 - Proteinuria, unspecified Category: Medical Plan: We will obtain microalbumin ratio as the last 1 was in 2023 Orders: Orders AMB Glucose Monitoring Today E11.65 - Type 2 diabetes mellitus with hyperglycemia, Z79.4 - superintendent container terminal (current) use of insulin Patient Instructions: Continue Jardiance 25 mg daily Continue Repaglinide 30 minutes before meals, three times a day Insulin Dose (units) ? Take 10?15 minutes prior to the meal Blood Sugar Level (mg/dl) Small Meal?(low carb <30g like salad, eggs with meat) Normal Meal?(30?60g like sandwich, chips, meat, small starch portion) Large Meal?(>60g like pizza, lasagna, [place]ian food, meal + dessert) <100 0 1 2 101?150 1 2 4 151?200 2 4 6 201?250 3 6 8 251?300 4 8 10 301?350 5 10 12 351?400 6 12 14 >400 8 14 16 Coding Level of Care Code New Pt Level 4 (21490) Diagnoses Type 2 diabetes mellitus with hyperglycemia, with long-term current use of insulin E11.65; Z79.4 Diabetes mellitus complication status: with hyperglycemia Diabetes mellitus fpc insulin use: with superintendent container terminal use Microalbuminuria R80.9 CPT Codes Details - CPT: 14018 - Glucose Monitoring, continuous ([id number]) Time Spent (min) 45 Comment Time spent on review of previous records, history, exam/plan and patient education.
[2025-06-06 10:24] LABS: Glucose, Whole Blood 341 mg/dL (60-115)
== END 2025-06-06 10:48 | disposition home or self-care (01) ==
LOC: HO.ENCR 09:52
PROVIDERS: PCP Internal Medicine; Visit Provider Student in an Organized Health Care Education/Training Program
DX: E11.65 Type 2 diabetes mellitus with hyperglycemia (principal); Z79.4 Long term (current) use of insulin; R80.9 Proteinuria, unspecified
CPT/HCPCS: 99215

== ENCOUNTER → 2025-06-06 09:51 | Outpatient (BNVA) | payer MEDICARE, SELFPAY | PROVIDERS: PCP Internal Medicine; Visit Provider Student in an Organized Health Care Education/Training Program | DX: E11.65 Type 2 diabetes mellitus with hyperglycemia (principal); R80.9 Proteinuria, unspecified; Z79.4 Long term (current) use of insulin; Z79.84 Long term (current) use of oral hypoglycemic drugs | CPT/HCPCS: 82947; 95250; 99212 ==

== ENCOUNTER 2025-07-04 09:55 | Outpatient (AMB) | payer MEDICARE, SELFPAY ==
--- NOTE | 2025-07-04 10:11 | A.OFFPC_ITS ---
Vital Signs 07/04/25 10:15 07/04/25 12:17 Height 6 ft 1 in Weight 258 lb BMI 34.0 BP 146/80 H 136/79 Blood Pressure Location Lt brachial Lt brachial Position Sitting Sitting Respiration 16 Pulse 99 Pulse Source Pulse Oximeter Temp 97.6 F Temp Source Temporal Artery Scan Pulse Oximetry (%) 99 Oxygen Delivery Method Room Air Intake Visit Reasons: 3 moth follow up Air Brake Tester Required: No Accompanied by: Self / Same As Patient Allergies terazosin Allergy (Mild, Verified 07/04/25 12:17) rash insulin degludec (From Tresiba FlexTouch U-100) Allergy (Verified 07/04/25 12:17) Muscle Pain NSAIDS (Non-Steroidal Anti-Inflamma Adverse Reaction (Severe, Verified 07/04/25 12:17) stomach bleed semaglutide (From Ozempic) Adverse Reaction (Severe, Verified 07/04/25 12:17) Diarrhea Orfpumh-BLE-KiA Reductase Inhibitor Adverse Reaction (Severe, Verified 07/04/25 12:17) Back Pain insulin lispro (From Humalog Mix) Adverse Reaction (Intermediate, Verified 07/04/25 12:17) Weakness insulin lispro protamine (From Humalog Mix) Adverse Reaction (Intermediate, Verified 07/04/25 12:17) Weakness insulin glargine (From Toujeo SoloStar U-300 Insulin) Adverse Reaction (Mild, Verified 07/04/25 12:17) Weakness lantus Adverse Reaction (Intermediate, Uncoded 07/04/25 12:17) Weakness Medication List - Last Reconciled 07/04/25 by Lydia Mota PA-C aspirin 81 mg PO DAILY blood sugar diagnostic As directed cephalexin 500 mg PO Q6H 7 days empagliflozin (Jardiance) 25 mg PO DAILY 30 days finasteride 5 mg PO BEDTIME 90 days insulin aspart U-100 6 units (0.06 mL) subcut TID lancets As directed metoprolol tartrate 50 mg PO BID pen needle, diabetic As directed 4 times a day Repatha SureClick (evolocumab) 140 mg subcut Q2W NS sacubitril-valsartan 24-26 mg (Entresto) 1 tab PO BID silodosin 8 mg PO BEDTIME 90 days Tobacco use date assessed: 04/25/25 Dental Screening Dental Screen Date: 04/25/25 HPI 3 moth follow up HPI Details The patient is a 75-year-old male presenting for a three-month follow- up visit. He reports intermittent pain in his joints and feet, which is exacerbated by colder weather. He avoids taking medications for the pain, including acetaminophen, due to a history of bleeding and has a known intolerance to statins. He has a history of type 2 diabetes managed by an electrophysiology tech, Dr. Anguiano. His medication regimen includes Jardiance and insulin aspart. He also has a history of hyperlipidemia treated with Repatha, hypertension treated with metoprolol and Entresto, and an enlarged prostate treated with finasteride and silodosin. His thyroid condition is managed by Dr. Ricardo. The patient's last blood work is not available in the system, and he does not recall when it was last done. He follows with urology for his prostate condition and has an upcoming appointment with Dr. Irby. The patient reports chronic leg swelling for which he wears compression socks and is scheduled for foot X-rays with a tin roller hot mill. He notes a cyst on his back that has been present for a while. Social History - The patient is a , as his in 1998. - He lives alone. - He has a daughter and a son, both of w marion live nearby. - He has four grandchildren. [facility] Medical History (Updated 07/04/25 @ 12:26 by Lydia Mota PA-C) Pedal edema Health care maintenance Epidermal cyst Arthralgia Umbilical hernia Peripheral edema Multinodular goiter (nontoxic) Ischemic cardiomyopathy CAD (coronary artery disease) Left leg swelling Multinodular thyroid Goiter Elevated PSA Vitamin D deficiency HLD (hyperlipidemia) HTN (hypertension) T2DM (type 2 diabetes mellitus) Surgical History Hx of heart bypass surgery History of prostate surgery H/O heart artery stent Family History Father No problems noted. Mother No problems noted. Social History Household Members: None Housing: House Are you a primary care process manager to a significant other at home: No Do you presently have visiting nurse or other home services: No 75 years or older and lives alone: Yes Alcohol intake: current Alcohol intake frequency: holidays/special occasions only Patient Tobacco Use Status: Never used Tobacco service: Yes Current occupational status: retired Cognitive needs: Yes (walking stick) Hearing needs: No Vision needs: Yes (rx glasses) Questionnaire PHQ-9 Over the last 2 weeks, how often have you been bothered by any of the following problems? 1. Little interest or pleasure in doing things: not at all 2. Feeling down, depressed, or hopeless: not at all 3. Trouble falling or staying asleep, or sleeping too much: not at all 4. Feeling tired or having little energy: not at all 5. Poor appetite or overeating: not at all 6. Feeling bad about yourself - or that you are a failure or have let yourself or your family down: not at all 7. Trouble concentrating on things, such as reading the newspaper or watching television: not at all 8. Moving or speaking so slowly that other people could have noticed. Or the opposite - being so fidgety or restless that you have been moving around a lot more than usual: not at all 9. Thoughts that you would be better off or of hurting yourself in some way: not at all Total score: 0 Depression Screening Interpretation: Negative Depression Screening Done: Yes 31494 - PHQ-9 Billing: Yes Source: Developed by Drs. Marvin Zavala, Carolee Flores, Frank Martinez and colleagues, with an educational alaina from [employer]. Thrive Questionnaire Date Thrive assessed: 04/25/25 I am a: Patient What is your living situation today?: I have a steady place to live Within the past 12 months, did the food you bought not last and you didn't have the money to get more?: Never true Within the past 12 months, did you worry whether your food would run out before you got money to buy more?: Never true Do you have trouble paying for medicines?: No Do you have trouble getting transportation to medical appointments?: No Do you have trouble paying your heating and electricity bill?: No Do you have trouble taking care of your child, family member or friend?: No Do you have trouble with day-to-day activities such as bathing, preparing meals, shopping, managing finances, etc.?: No Are you currently unemployed and looking for a job?: No Are you interested in more education?: No Please select the resources that you would like help with: None Currently or been in a relationship where the following occur: No concerns reported THRIVE Score: 0 AUDIT C Alcohol Use Questionnaire (AUDIT-C) 1. How often do you have a drink containing alcohol?: Monthly or less 2. How many drinks containing alcohol do you have on a typical day when you are drinking?: 1 or 2 3. How often do you have six or more drinks on one occasion?: Never Total Score: 1 Score Reviewed/Action Taken: No MARCE-7 AMB Questionnaire MARCE-7 Date MARCE - 7 assessed: 04/25/25 Feeling nervous, anxious, or on edge: 0 = Not at all Not being able to stop or control worryin = Not at all Worrying too much about different things: 0 = Not at all Trouble relaxin = Not at all Being so restless that it is hard to sit still: 0 = Not at all Becoming easily annoyed or irritable: 0 = Not at all Feeling afraid as if something awful might happen: 0 = Not at all Total MARCE-7 score (0-4 normal; 5-9 mild; 10-14 moderate; 15-21 severe): 0 Source: Developed by Drs. Marvin Zavala, Carolee Flores, Frank Martinez and colleagues, with an educational aliana from [employer]. MARCE-7 Assessment Billing MARCE-7 Assessment Tool: MARCE-7 Assessment 67133 Review of Systems Const Details: - General: Denies recent falls in the past year. - Cardiovascular: Denies chest pain. - Respiratory: Denies shortness of breath with exertion or when lying flat. - Musculoskeletal: Reports intermittent pain in his joints and feet, which is worse with cold weather. - Integumentary/Skin: Reports a bothersome cyst on his back that has been present for a while. - Extremities: Reports chronic leg and feet swelling. All systems reviewed & are unremarkable except as noted in HPI and below Physical exam (Primary Care) Vital Signs: Last Vital Signs Temp 97.6 F 07/04/25 10:15 Pulse 99 07/04/25 10:15 Resp 16 07/04/25 10:15 BP 146/80 H 07/04/25 10:15 Pulse Ox 99 07/04/25 10:15 Oxygen Delivery Method Room Air 07/04/25 10:15 Care Plan Goal for BP management: <140/90 at Goal BMI result Body Mass Index 34.0 BMI Assessment/Plan discussion: High BMI High, discussed plan: lifestyle, weight reduction, dietary, physical activity, alcohol moderation and other Tobacco/Smoking Status: Tobacco use Status Tobacco use date assessed 04/25/25 07/04/25 10:12 Patient Tobacco Use Status Never used Tobacco 07/04/25 10:12 PHQ-9: PHQ-9 Score PHQ-9: Total score 0 07/04/25 10:22 Depression Screening Interpretation: Negative Thrive Assessment: Date of Thrive Assessment Date Thrive assessed 04/25/25 07/04/25 10:12 Currently or been in a relationship where the following occur: No concerns reported Const Other: Appearance: Alert. Oriented X3. No acute distress. Head: Normal external exam. Normocephalic. Atraumatic. Eyes: Pupils are equal, round, and reactive to light. Extraocular movements intact. Conjunctiva and sclera normal. Eyelids normal. Throat: Pharynx normal. Uvula midline. Moist mucous membranes. Neck: Normal inspection. Neck supple. Full range of motion. Cardiovascular: Normal heart rate and rhythm. Heart sound normal. No murmurs noted. Pulses normal throughout. Respiratory: No respiratory distress. Painless inspiration. Breath sounds normal. No wheezes/rales/rhonchi noted. Chest nontender. No accessory muscle usage noted or decreased air movement noted. Abdomen: Soft and nontender. Bowel sounds normal in all 4 quadrants. No distention noted. No organomegaly noted. Back: Full range of motion noted. Cyst noted on the back, drained and treated with topical antibiotic. Skin: Skin warm and dry. Normal skin color. Normal skin turgor. Abscess on the back drained and treated.No additional rashes/lesions/lacerations noted. Extremities: Lower extremity edema noted. Extremities exhibit normal range of motion. Neuro: Oriented X 3. No motor deficit. No sensory deficit. Reflexes normal. Office Procedures Incision and Drainage Incision and drainage performed by: Lydia Mota Informed consent given: Yes Consent signed: Yes (Verbal consent) Time out checklist: patient, procedure, site marked/identified, positioning of patient, supplies available, allergies confirmed and team agrees on procedure Time out staff in room: Yes Time out verified: Yes Time out date: 07/04/25 Time out time: 10:30 Location: back lower left side Anesthesia: none Incision with: other (Aspiration with manipulation) Drainage quality: purulent Probed cavity: Yes Culture taken: No Lesion: fluctuance Lesion size (cm): 1 Hemostasis: pressure Cavity management: irrigated Dressing: gauze Patient tolerated procedure: well Complications: No Results Reviewed Results Reviewed: - Vitals: Blood pressure 146/79 mmHg. - Lab studies: No recent laboratory results were available for review. Coding Level of Care Code Est Pt Level 4 (58180) Complex EM visit Add On G2211 Diagnoses Arthralgia M25.50 Epidermal cyst L72.0 Health care maintenance Z00.00 Hypertension, unspecified type I10 Hypertension type: unspecified Pedal edema R60.0 Additional Codes MARCE-7 Assessment Billing - MARCE-7 Assessment Tool: MARCE-7 Assessment 58793 ([id number]) PHQ-9 - 24281 - PHQ-9 Billing: Yes ([id number]) Time Spent (min) 60 Assessment & Plan Assessment & Plan (1) Arthralgia: Code(s): M25.50 - Pain in unspecified joint Category: Medical Plan: The patient reports joint and foot pain that fluctuates and worsens with cold weather. He does not take analgesics due to a history of bleeding and other medication side effects. Repatha was confirmed not to be a statin and an unlikely cause of his muscle aches. The patient declined an offer for a muscle relaxant or cream, stating he is accustomed to the pain. (2) Epidermal cyst: Code(s): L72.0 - Epidermal cyst Category: Medical Plan: The patient presented with a bothersome cyst on his back, which was identified as a small abscess. An incision and drainage of two lesions was performed, expressing purulent material. The areas were cleaned, and a topical antibiotic and bandages were applied. To prevent infection, a prescription for Keflex 500 mg, to be taken four times daily for seven days, will be sent to [facility] on [facility] in [place], [place]. (3) Health care maintenance: Code(s): Z00.00 - Encounter for general adult medical examination without abnormal findings Category: Medical Plan: As no recent blood work could be located, baseline labs have been ordered, including a CBC, CMP, magnesium, and a lipid panel. The patient's hemoglobin A1c and thyroid function will be managed by his electrophysiology tech, and his PSA will be managed by his urologist. He will follow up in three months and is advised to complete the labs before then. (4) HTN (hypertension): Code(s): I10 - Essential (primary) hypertension Category: Medical Qualifiers: Hypertension type: unspecified Qualified Code(s): I10 - Essential (primary) hypertension Plan: Patient to continue metoprolol tartrate 50 mg p.o. b.i.d., Entresto 1 tablet p.o. b.i.d.. Condition is chronic and stable continue to monitor. (5) Pedal edema: Code(s): R60.0 - Localized edema Category: Medical Plan: The patient reports chronic swelling in his legs, for which he uses compression socks and will be getting X-rays of his feet per his tin roller hot mill. Plan is to continue with current management and follow up with his tin roller hot mill as scheduled. Plan Plan Patient was informed and verbally consented to the use of an ambient scribe for clinic note documentation during this visit. 1. Arthralgia The patient reports joint and foot pain that fluctuates and worsens with cold weather. He does not take analgesics due to a history of bleeding and other medication side effects. Repatha was confirmed not to be a statin and an unlik donovan cause of his muscle aches. The patient declined an offer for a muscle relaxant or cream, stating he is accustomed to the pain. 2. Epidermal Cyst Of Skin The patient presented with a bothersome cyst on his back, which was identified as a small abscess. An incision and drainage of two lesions was performed, expressing purulent material. The areas were cleaned, and a topical antibiotic and bandages were applied. To prevent infection, a prescription for Keflex 500 mg, to be taken four times daily for seven days, will be sent to [facility] on [facility] in [place], [place]. 3. Health Maintenance As no recent blood work could be located, baseline labs have been ordered, including a CBC, CMP, magnesium, and a lipid panel. The patient's hemoglobin A1c and thyroid function will be managed by his electrophysiology tech, and his PSA will be managed by his urologist. He will follow up in three months and is advised to complete the labs before then. 4. Elevated Blood Pressure Reading The patient's blood pressure was elevated in the office at 146/79 mmHg, which he attributed to stress and not eating. He reports his blood pressure is normally not high at home. He will monitor his blood pressure at home and follow up in three months. 5. Lower Extremity Edema The patient reports chronic swelling in his legs, for which he uses compression socks and will be getting X-rays of his feet per his tin roller hot mill. Plan is to continue with current management and follow up with his tin roller hot mill as scheduled. I reviewed with the patient that his visit today was for a three-month follow- up. We discussed his complaint of joint pain, and I acknowledged his history of bleeding with certain pain medications and intolerance to statins; I clarified that his cholesterol medication, Repatha, is not a statin. He declined treatment for the pain. We addressed the cyst on his back, and I recommended draining it as it appeared to be a small abscess. After I drained two lesions, I explained that I would prescribe Keflex for seven days to prevent infection. The patient was instructed on the dosing of 500 mg four times a day, and the prescription will be sent to his preferred pharmacy. I noted his elevated blood pressure reading and he reported it was due to stress and hunger. I advised him to monitor his blood pressure at home. We also discussed the need for updated lab work, and I've ordered a CBC, CMP, magnesium, and cholesterol panel, explaining that his specialists will handle other specific tests. I instructed him to complete these labs before his next visit and to schedule a follow-up appointment in three months. Orders: Orders Erythrocyte Sedimentation Rate Today Z00.00 - Encounter for general adult medical examination without abnormal findings Magnesium Today Z00.00 - Encounter for general adult medical examination without abnormal findings Vitamin D 25-OH Total Today Z00.00 - Encounter for general adult medical examination without abnormal findings Liver Panel Today Z00.00 - Encounter for general adult medical examination without abnormal findings Complete Blood Count Auto Diff Today Z00.00 - Encounter for general adult medi nikolas examination without abnormal findings Comprehensive Wheeler. Panel Fast Today Z00.00 - Encounter for general adult medical examination without abnormal findings Vitamin B12 and Folate Today Z00.00 - Encounter for general adult medical examination without abnormal findings UA CC w/rflx Micro + Cult Today Z00.00 - Encounter for general adult medical examination without abnormal findings Lipid Panel Today Z00.00 - Encounter for general adult medical examination without abnormal findings Medications: New cephalexin 500 mg PO Q6H 28 caps 0RF 7 days Patient Instructions: - Take Keflex 500 mg by mouth four times a day for seven days to prevent infection in the treated cysts on your back. - The prescription for Keflex will be sent to the [facility] on [facility] in [place], [place]. - Keep the bandages on your back for at least 24 hours. - Please get your blood work done before your next appointment. - Please check your blood pressure at home. - Schedule a follow-up appointment in this office for three months from now.
[2025-07-04 10:15] VITALS: BP 146/80; PULSE 99; RESP 16; TEMP 36.4; O2SAT 99; BMI 34.0
[2025-07-04 12:17] VITALS: BP 136/79
== END 2025-07-04 10:53 | disposition home or self-care (01) ==
LOC: HO.HMCSH 09:55
PROVIDERS: PCP Internal Medicine; Visit Provider Physician Assistant Medical
DX: M25.50 Pain in unspecified joint (principal); L72.0 Epidermal cyst; Z00.00 Encounter for general adult medical examination without abnormal findings; I10 Essential (primary) hypertension; R60.0 Localized edema

== ENCOUNTER 2025-07-04 09:55 | Outpatient (REF) | payer MEDICARE, SELFPAY ==
--- NOTE | ~2025-07-04 | XR_ITS ---
Exam: XR FOOT 3 OR MORE VIEWS BILATERAL, bilateral foot x-rays TECHNIQUE: AP, OBL and lateral views lower extremity, bilateral feet INDICATION: M20.21 - Hallux rigidus, right foot COMPARISON: None available. FINDINGS: RIGHT FOOT: There is hallux valgus deformity. There is severe asymmetric narrowing of the first MTP joint with subchondral sclerosis and marginal osteophytes. There are also marginal osteophytes involving the sesamoids of the great toe. There is an accessory ossification center involving the medial aspect of navicular bone. There is a plantar calcaneal enthesophyte LEFT FOOT: There is severe narrowing and marginal osteophytes involving the first MTP joint. There are minute osteophytes involving the sesamoids of the first metatarsal head. There is a plantar calcaneal enthesophyte. There is an accessory ossification center involving the medial aspect of navicular bone. 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 Left foot: Severe first MTP joint osteoarthritis. Electronically signed by: Vineet Worthington MD 07/04/2025 03:22 PM TONYA
--- OUTSIDE RECORDS SUMMARY | 2025-07-04 17:45 | XMS_ITS | Clinical Summary ---
Author Organization [facility] Facility Address [address] [place] [id number] Care Team Providers Care Head Of Commission Department Name Role Phone Edin Lee MD Primary Care Provider [phone] Social History Tobacco Use Types Packs/Day Years [...] this topic Insurance Medicare Medicare Care Teams Head Of Commission Department Relationship Specialty Start Date End Date Edin Lee MD [address] [place] [address] PCP - General Internal Medicine 03/23/22
== END 2025-07-04 09:56 | disposition home or self-care (01) ==
LOC: HO.HMGCX 09:55
PROVIDERS: PCP Physician Assistant Medical; Visit Provider Student in an Organized Health Care Education/Training Program
DX: Z00.00 Encounter for general adult medical examination without abnormal findings (principal); M20.21 Hallux rigidus, right foot; M20.22 Hallux rigidus, left foot; M25.572 Pain in left ankle and joints of left foot; M25.571 Pain in right ankle and joints of right foot; E11.9 Type 2 diabetes mellitus without complications; L72.0 Epidermal cyst; I10 Essential (primary) hypertension; R60.0 Localized edema; R03.0 Elevated blood-pressure reading, without diagnosis of hypertension
CPT/HCPCS: 73630; 96127; 99212

== ENCOUNTER → 2025-07-04 14:58 | Outpatient (BNV) | payer MEDICARE, SELFPAY | PROVIDERS: PCP Physician Assistant Medical; Visit Provider Radiology Diagnostic Radiology | DX: M20.21 Hallux rigidus, right foot (principal); M20.11 Hallux valgus (acquired), right foot; M19.071 Primary osteoarthritis, right ankle and foot; M19.072 Primary osteoarthritis, left ankle and foot | CPT/HCPCS: 73630 ==

== ENCOUNTER 2025-07-18 10:27 | Outpatient (AMB) | payer MEDICARE, SELFPAY ==
[2025-07-18 10:43] VITALS: BMI 34.0
--- NOTE | 2025-07-18 10:43 | A.OFFVIS_ITS ---
Vital Signs 07/18/25 10:43 Height 6 ft 1 in Weight 258 lb BMI 34.0 Intake Visit Reasons: 9 week follow up- xray Intake Note: Edin is a 75 yo male presenting today for follow up on his Xray results . At his last visit his toe nails were debrided, x-rays were ordered. Patient states he is still experiencing pain and he has not seen any improvement. Allergies terazosin Allergy (Mild, Verified 07/18/25 10:43) rash insulin degludec (From Tresiba FlexTouch U-100) Allergy (Verified 07/18/25 10:43) Muscle Pain NSAIDS (Non-Steroidal Anti-Inflamma Adverse Reaction (Severe, Verified 07/18/25 10:43) stomach bleed semaglutide (From Ozempic) Adverse Reaction (Severe, Verified 07/18/25 10:43) Diarrhea Ajleltc-PNT-TtU Reductase Inhibitor Adverse Reaction (Severe, Verified 07/18/25 10:43) Back Pain insulin lispro (From Humalog Mix) Adverse Reaction (Intermediate, Verified 07/18/25 10:43) Weakness insulin lispro protamine (From Humalog Mix) Adverse Reaction (Intermediate, Verified 07/18/25 10:43) Weakness insulin glargine (From Toujeo SoloStar U-300 Insulin) Adverse Reaction (Mild, Verified 07/18/25 10:43) Weakness lantus Adverse Reaction (Intermediate, Uncoded 07/04/25 12:17) Weakness HPI HPI 9 week follow up- xray: Details: The patient is a 75-year-old male past medical history of diabetes mellitus type 2, coronary artery disease s/p triple bypass, returns for 2 month follow up for bilateral feet pain and diabetic care. Patient states he received his x-rays. He also has been noticing worsening swelling to his legs and developed sores to the front of his left leg over the past week. He has been treating it at home with local wound care. He does have a history of sores to his right leg which have healed in the past unremarkably. The patient has been prescribed antibiotics in the past for left leg infection. He also states that he has worn compression stockings in the past however stopped new to arthritis and stiffness of the joints which has improved recently after changing his diabetic medication. He denies history of ulcerations to his feet. Endorses numbness, tingling. Also endorses lower back pain. Patient notes difficulty trimming his nails due to his arthritis. [facility] Medical History (Updated 07/18/25 @ 11:32 by Charan Do DPM) Leg swelling Pedal edema Health care maintenance Epidermal cyst Arthralgia Umbilical hernia Peripheral edema Multinodular goiter (nontoxic) Ischemic cardiomyopathy CAD (coronary artery disease) Left leg swelling Multinodular thyroid Goiter Elevated PSA Vitamin D deficiency HLD (hyperlipidemia) HTN (hypertension) T2DM (type 2 diabetes mellitus) Surgical History Hx of heart bypass surgery History of prostate surgery H/O heart artery stent Family History Father No problems noted. Mother No problems noted. Social History Household Members: None Housing: House Are you a primary nurse healthcare manager to a significant other at home: No Do you presently have visiting nurse or other home services: No 75 years or older and lives alone: Yes Alcohol intake: current Alcohol intake frequency: holidays/special occasions only Patient Tobacco Use Status: Never used Tobacco service: Yes Current occupational status: retired Cognitive needs: Yes (walking stick) Hearing needs: No Vision needs: Yes (rx glasses) Review of Systems Const All systems reviewed & are unremarkable except as noted in HPI and below Physical Exam Vital Signs: BMI result Body Mass Index 34.0 Extrem Other: *Bilateral Lower Extremity Focused Diabetic Foot Exam Vascular: DP/PT biphasic on Doppler bilaterally, CFT<3s to digits, TG warm to cool, +2 pitting pedal edema and +1 pitting pre-tibial edema bilaterally, pedal hair absent Derm: Skin: Right hallux lateral nail border with mild ingrown nail border. Left hallux nail ingrown. Left anterior mid leg 2 superficial ulcerations. 1. 4 cm x 3 cm x 0.1 cm granular. 2. 4cm x 0.2cm x 0.1cm granular. no erythema or clinical signs of infection. Interdigital spaces: Clear, no maceration or fungal infection. Nails: Dystrophic thickened discolored elongated toenails x 10. Neuro: Protective sensation grossly diminished bilateral lower extremities Msk: Deformities: Rigid hammertoe deformity 2nd and 3rd digit PIPJ bilaterally. Decreased plantar flexion at the MPJ 2 through 5 bilaterally. First MTPJ range of motion 5 degrees dorsiflexion bilaterally. No pain on range of motion. Muscle strength: 4+/5 in all muscle groups. Gait: Normal, no antalgic or steppage gait observed. Footwear Assessment: Shoes inspected; appropriate fit, no excessive wear, or foreign objects noted. Office Procedures AMB Debridement /Avulsion Details: Procedure: Nail debridement Location: 10 nails, bilateral feet Anesthesia: N/A Description: The affected toenails were cleansed with an antiseptic solution. Using sterile nail nippers and a rotary neo, dystrophic and mycotic nail material was carefully debrided and reduced in thickness. Care was taken to avoid trauma to the surrounding skin and nail bed. All debris was removed as tolerated. The area was inspected for signs of infection or ulceration. Patient tolerated the procedure well without complications. Tolerance: Patient tolerated procedure well, no immediate complications. Class B findings as per physical exam findings above. The patient has a diagnosis of diabetes mellitus and presents with elongated, thickened toenails. Due to underlying diabetic neuropathy and mild vascular disease findings, the patient is at increased risk for complications such as ulceration, infection, and difficulty with self-care. Debridement of elongated toenails is medically necessary to prevent development of pressure-related lesions, reduce risk of secondary infection, and maintain foot health in high- risk comorbidities. 55585-Uogehdlgvho of Nail 6+ Procedure code (CPT) selection complete AMB Podiatry Dressing Details of Procedure: Procedure: Romero compression dressing Indication: Bilateral lower extremity edema with venous stasis ulcers to the left leg Description: Applied Xeroform and 4 x 4 gauze to the left leg ulcers. Applied Webril soft dressing and 4 Lalo bandage to bilateral lower extremities from toes to mid-calf. Tolerance: Patient tolerated procedure well, no immediate complications. *The patient was instructed to remain non-weightbearing in the splint with crutches. 04346 - Multi-layer compressive dressing Procedure code (CPT) selection complete Results Reviewed Results Reviewed: X-ray Read: 07/04/2025 X-ray right foot 3 views (AP, MO, Lateral) reviewed which shows severe 1st Metatarsal-phalangeal joint joint space narrowing, severe 2nd and 3rd PIPJ narrowing with flexion deformity. Large accessory navicular. Mild plantar calcaneal spur I personally reviewed the imaging and my findings are listed above. X-ray Read: 07/04/2025 X-ray left foot 3 views (AP, MO, Lateral) reviewed which shows no severe 1st Metatarsal-phalangeal joint joint space narrowing with flattening and bone spur formation of the 1st metatarsal head. Severe 2nd and 3rd PIPJ joint space narrowing with flexion deformity. Third PIPJ subluxed. Moderate plantar calcaneal spur. I personally reviewed the imaging and my findings are listed above. Assessment & Plan Assessment & Plan (1) Venous ulcer of left leg: Code(s): I83.029 - Varicose veins of left lower extremity with ulcer of unspecified site; L97.929 - Non-pressure chronic ulcer of unspecified part of left lower leg with unspecified severity Category: Medical Plan: * Applied Xeroform, 4 x 4 gauze, and Webril dressing to the left leg ulcers (2) T2DM (type 2 diabetes mellitus): Code(s): E11.9 - Type 2 diabetes mellitus without complications Category: Medical Qualifiers: Diabetes mellitus residential insulin use: with predatory animal exterminator use Diabetes mellitus complication status: with hyperglycemia Qualified Code(s): E11.65 - Type 2 diabetes mellitus with hyperglycemia; Z79.4 - long term (current) use of insulin Plan: * Patient is a risk of chronic ulcer formation due to venous stasis and history of diabetes (3) Hallux rigidus of both feet: Code(s): M20.21 - Hallux rigidus, right foot; M20.22 - Hallux rigidus, left foot Category: Medical Plan: * Reviewed bilateral feet x-rays which show advanced arthritis to his big toe joints bilaterally. * Recommended conservative treatment at this time including wide shoe wear. Discussed inserts however the patient deferred at this time. (4) Swelling of both lower extremities: Code(s): M79.89 - Other specified soft tissue disorders Category: Medical Plan: * Applied Romero compressive dressing bilaterally * Instructed patient to follow up with his primary care physician and his communication studies professor regarding bilateral lower extremity edema which can be secondary to a cardiac etiology. (5) Tinea unguium: Code(s): B35.1 - Tinea unguium Category: Medical Plan: * Debrided elongated nails x 10. * Follow up in 9 weeks for routine care. Patient is at high risk of ulcer formation due to dystrophic nail changes given his A1c and cardiovascular status. (6) Hammertoes of both feet: Code(s): M20.41 - Other hammer toe(s) (acquired), right foot; M20.42 - Other hammer toe(s) (acquired), left foot Category: Medical Plan: * Reviewed bilateral foot x-rays. * Discussed the risk of ulcer formation at the tip of his toes due to his deformity. Orders: Orders AMB Podiatry Dressing Today M79.89 - Other specified soft tissue disorders Coding Level of Care Code Est Pt Level 4 (03694) Diagnoses Venous ulcer of left leg I83.029; L97.929 Type 2 diabetes mellitus with hyperglycemia, with long-term current use of insulin E11.65; Z79.4 Diabetes mellitus residential insulin use: with residential use Diabetes mellitus complication status: with hyperglycemia Hallux rigidus of both feet M20.21; M20.22 Swelling of both lower extremities M79.89 Tinea unguium B35.1 Hammertoes of both feet M20.41; M20.42 CPT Codes Podiatry Dressing - CPT: 13866 - Multi-layer compressive dressing ([id number])
--- OUTSIDE RECORDS SUMMARY | 2025-07-18 20:12 | XMS_ITS | Clinical Summary ---
Author Organization [facility] Facility Address [address] [place] [id number] Care Team Providers Care Acoustical Material Worker Name Role Phone Edin Lee MD Primary Care Provider [phone] Social History Tobacco Use Types Packs/Day Years [...] this topic Insurance Medicare Medicare Care Teams Acoustical Material Worker Relationship Specialty Start Date End Date Edin Lee MD [address] [place] [address] PCP - General Internal Medicine 03/23/22
== END 2025-07-18 11:10 | disposition home or self-care (01) ==
LOC: HO.HPODS 10:27
PROVIDERS: PCP Internal Medicine; Visit Provider Student in an Organized Health Care Education/Training Program
DX: I83.029 Varicose veins of left lower extremity with ulcer of unspecified site (principal); L97.929 Non-pressure chronic ulcer of unspecified part of left lower leg with unspecified severity; Z79.4 Long term (current) use of insulin; E11.65 Type 2 diabetes mellitus with hyperglycemia; I25.10 Atherosclerotic heart disease of native coronary artery without angina pectoris; M20.21 Hallux rigidus, right foot; M20.22 Hallux rigidus, left foot; B35.1 Tinea unguium; M20.41 Other hammer toe(s) (acquired), right foot; M79.89 Other specified soft tissue disorders; M20.42 Other hammer toe(s) (acquired), left foot
CPT/HCPCS: 11721; 29581; 99214

== ENCOUNTER → 2025-07-18 10:27 | Outpatient (BNVA) | payer MEDICARE, SELFPAY | PROVIDERS: PCP Internal Medicine; Visit Provider Student in an Organized Health Care Education/Training Program | DX: L97.929 Non-pressure chronic ulcer of unspecified part of left lower leg with unspecified severity (principal); E11.65 Type 2 diabetes mellitus with hyperglycemia; Z79.4 Long term (current) use of insulin; M20.21 Hallux rigidus, right foot; M20.22 Hallux rigidus, left foot; M79.89 Other specified soft tissue disorders; B35.1 Tinea unguium; M20.41 Other hammer toe(s) (acquired), right foot; M20.42 Other hammer toe(s) (acquired), left foot | CPT/HCPCS: 11721; 29581; 99212 ==

== ENCOUNTER 2025-07-20 10:42 | Outpatient (REF) | payer MEDICARE, SELFPAY ==
--- NOTE | ~2025-07-20 | XR_ITS ---
EXAMINATION: XR CHEST 2 VIEWS HISTORY: M79.89 - Other specified soft tissue disorders COMPARISON: Comparison is made with the prior examination dated 07/22/2021. FINDINGS: PA and lateral views of the chest are submitted. The lungs are expanded and clear. There is no pleural effusion, pneumothorax, or pulmonary vascular congestion. The heart is normal in size. The patient is status post median sternotomy. There is degenerative disc disease of the spine. XR/XR chest 2V IMPRESSION: No acute cardiopulmonary abnormality. Electronically signed by: Marvin Fermin MD 07/20/2025 11:09 AM [facility]
--- OUTSIDE RECORDS SUMMARY | 2025-07-20 11:28 | XMS_ITS | Clinical Summary ---
Author Organization [facility] Facility Address [address] [place] [id number] Care Team Providers Care Tank Washer Name Role Phone Edin Lee MD Primary Care Provider [phone] Social History Tobacco Use Types Packs/Day Years [...] this topic Insurance Medicare Medicare Care Teams Tank Washer Relationship Specialty Start Date End Date Edin Lee MD [address] [place] [address] PCP - General Internal Medicine 03/23/22
[2025-07-20 13:19] LABS: MANUAL DIFF FLAG NO
[2025-07-20 13:26] LABS: Hematocrit 51.8 % (42.0-52.0); Hemoglobin 17.5 g/dl (14.0-18.0); Imm Gran Abs Auto 0.11 X10*3/uL (0.00-0.03); Imm Gran Pct Auto 1.4 % (0.0-0.4); Lymphocytes Absolute Auto 1.4 X10*3/uL (1.2-4.9); Mean Corpuscular HGB Conc 33.8 g/dl (31.0-36.0); Mean Corpuscular Hemoglobin 28.9 pg (27.0-33.0); Mean Corpuscular Volume 85.5 fL (80.0-98.0); NRBC Abs Auto 0.000 X10*3/uL (0.0-0.012); NRBC Pct Auto 0.0 /100WBC (0.0-0.2); Platelet Count 225 X10*3/uL (160-400); Red Blood Count 6.06 X10*6/uL (4.60-5.80); White Blood Count 7.7 X10*3/uL (4.8-10.8)
[2025-07-20 13:45] LABS: NT Pro B Type Natriuretic Pept 188.5 pg/mL (<300)
[2025-07-20 13:59] LABS: Prostate Specific Antigen 2.73 ng/mL (<0.05-4.0)
[2025-07-20 14:06] LABS: Alanine Aminotransferase 15 U/L (0-40); Albumin Level 4.5 g/dL (3.5-5.0); Alkaline Phosphatase 145 U/L (39-117); Anion Gap 19 (12-20); Aspartate Amino Transferase 23 U/L (5-37); Blood Urea Nitrogen 23 mg/dL (9-16); Calcium 10.3 mg/dL (8.4-10.2); Carbon Dioxide 26 mmol/L (22-29); Chloride 96 mmol/L (96-108); Cholesterol 146 mg/dL (<200); Estimated Glomerular Filt Rate > 60; HDL Cholesterol 46 mg/dL (>40); Magnesium 2.2 mg/dL (1.6-2.6); Potassium 4.8 mmol/L (3.3-5.1); Sodium 136 mmol/L (135-145); Total Protein 7.9 g/dL (6.5-8.0); Triglycerides 148 mg/dL (<150)
[2025-07-20 14:11] LABS: Folate 11.7 ng/mL (> or = 4.0); Vitamin B12 350 pg/mL (200-900)
[2025-07-20 14:24] LABS: Appearance Urine Clear; Glucose Urine UA >=1000 mg/dL (Negative); PH 5.0 (5.0-9.0); Specific Gravity - Urine >= 1.030 (1.005-1.025); UMIC TRIGGER UACC YES
[2025-07-20 14:34] LABS: UACC Culture Trigger YES
== END 2025-07-20 10:43 | disposition home or self-care (01) ==
LOC: HO.HMGCX 10:42
PROVIDERS: Absent Provider Urology; PCP Physician Assistant Medical; Visit Provider Physician Assistant Medical
DX: Z00.00 Encounter for general adult medical examination without abnormal findings (principal); Z13.6 Encounter for screening for cardiovascular disorders; Z12.5 Encounter for screening for malignant neoplasm of prostate; M79.89 Other specified soft tissue disorders; N40.1 Benign prostatic hyperplasia with lower urinary tract symptoms; N13.8 Other obstructive and reflux uropathy
CPT/HCPCS: 36415; 71046; 80048; 80053; 80061; 80076; 81001; 81003; 82248; 82306; 82607; 82746; 83735; 83880; 84153; 85025; 85652; 87086; 87147

== ENCOUNTER → 2025-07-20 10:57 | Outpatient (BNV) | payer MEDICARE, SELFPAY | PROVIDERS: Absent Provider Urology; PCP Physician Assistant Medical; Visit Provider Radiology Diagnostic Radiology | DX: M79.89 Other specified soft tissue disorders (principal) | CPT/HCPCS: 71046 ==

== ENCOUNTER 2025-07-25 10:26 | Outpatient (AMB) | payer MEDICARE, SELFPAY ==
[2025-07-25 10:29] VITALS: BP 132/75; PULSE 106; RESP 16; TEMP 36.4; O2SAT 96; BMI 33.8
--- NOTE | 2025-07-25 10:29 | A.OFFPC_ITS ---
Vital Signs 07/25/25 10:29 Height 6 ft 1 in Weight 256 lb BMI 33.8 BP 132/75 Blood Pressure Location Lt brachial Position Sitting Respiration 16 Pulse 106 H Pulse Source Pulse Oximeter Temp 97.6 F Temp Source Temporal Artery Scan Pulse Oximetry (%) 96 Oxygen Delivery Method Room Air Intake Visit Reasons: Leg wounds Administrative Appeals Tribunal Member Required: No Accompanied by: Self / Same As Patient Allergies terazosin Allergy (Mild, Verified 07/25/25 11:25) rash insulin degludec (From Tresiba FlexTouch U-100) Allergy (Verified 07/25/25 11:25) Muscle Pain NSAIDS (Non-Steroidal Anti-Inflamma Adverse Reaction (Severe, Verified 07/25/25 11:25) stomach bleed semaglutide (From Ozempic) Adverse Reaction (Severe, Verified 07/25/25 11:25) Diarrhea Bnleqxn-YNZ-OeL Reductase Inhibitor Adverse Reaction (Severe, Verified 07/25/25 11:25) Back Pain insulin lispro (From Humalog Mix) Adverse Reaction (Intermediate, Verified 07/25/25 11:25) Weakness insulin lispro protamine (From Humalog Mix) Adverse Reaction (Intermediate, Verified 07/25/25 11:25) Weakness insulin glargine (From Toujeo SoloStar U-300 Insulin) Adverse Reaction (Mild, Verified 07/25/25 11:25) Weakness lantus Adverse Reaction (Intermediate, Uncoded 07/25/25 11:25) Weakness Medication List - Last Reconciled 07/25/25 by Lydia Mota PA-C aspirin 81 mg PO DAILY blood sugar diagnostic As directed cephalexin 500 mg PO Q6H 10 days doxycycline hyclate 100 mg PO BID 10 days empagliflozin (Jardiance) 25 mg PO DAILY 30 days finasteride 5 mg PO BEDTIME 90 days furosemide (Lasix) 40 mg PO DAILY 30 days insulin aspart U-100 6 units (0.06 mL) subcut TID lancets As directed metoprolol tartrate 50 mg PO BID mupirocin 2% 1 appl topical DAILY pen needle, diabetic As directed 4 times a day Repatha SureClick (evolocumab) 140 mg subcut Q2W NS sacubitril-valsartan 24-26 mg (Entresto) 1 tab PO BID silodosin 8 mg PO BEDTIME 90 days Tobacco use date assessed: 04/25/25 Dental Screening Dental Screen Date: 04/25/25 HPI HPI Comments History of Present Illness Details History of Present Illness The patient is a 75 year old individual presenting with a follow-up visit for bilateral lower extremity swelling and leg wounds. The patient was referred by the patient's lawn sprinkler installer due to concerns about bilateral pitting edema and new superficial venous sores. The patient has experienced intermittent leg swelling for the past three years and was previously prescribed Lasix. The patient reports developing blisters on the left leg, similar to what was previously experienced on the right leg. The patient has a history of coronary artery disease, status post drug-eluting stent to LAD in 2006 and a triple coronary artery bypass graft (CABG) in March 2021. Other past medical history includes hyperlipidemia and type 2 diabetes mellitus. An echocardiogram on 10/08/2023 revealed a mildly reduced left ventricular systolic function with an ejection fraction of 40-50% and moderate to severe hypokinesis of the inferior wall. The patient follows up with cardiology at [facility], and the last visit was in early 2022. The patient reports having discontinued insulin on three separate occasions due to developing debilitating muscle pain and weakness, which resolved upon cessation of the medication. The patient continues to experience joint pain, which is distinct from the previously experienced muscle pain. Recent blood work showed a pro-BNP of 188.5 and normal sodium levels, and a chest x-ray was normal. Social History - Functional Status: The patient reports difficulty with walking long distances. [facility] Medical History (Updated 07/25/25 @ 11:28 by Lydia Mota PA-C) Type 2 diabetes mellitus with hemoglobin A1c goal of less than 7.0% CHF (congestive heart failure) Cellulitis Chronic venous hypertension w/ulcer and inflammation involv left side Leg swelling Pedal edema Health care maintenance Epidermal cyst Arthralgia Umbilical hernia Peripheral edema Multinodular goiter (nontoxic) Ischemic cardiomyopathy CAD (coronary artery disease) Left leg swelling Multinodular thyroid Goiter Elevated PSA Vitamin D deficiency HLD (hyperlipidemia) HTN (hypertension) T2DM (type 2 diabetes mellitus) Surgical History Hx of heart bypass surgery History of prostate surgery H/O heart artery stent Family History Father No problems noted. Mother No problems noted. Social History Household Members: None Housing: House Are you a primary career technical education instructor to a significant other at home: No Do you presently have visiting nurse or other home services: No 75 years or older and lives alone: Yes Alcohol intake: current Alcohol intake frequency: holidays/special occasions only Patient Tobacco Use Status: Never used Tobacco service: Yes Current occupational status: retired Cognitive needs: Yes (walking stick) Hearing needs: No Vision needs: Yes (rx glasses) Questionnaire PHQ-9 Over the last 2 weeks, how often have you been bothered by any of the following problems? 1. Little interest or pleasure in doing things: not at all 2. Feeling down, depressed, or hopeless: not at all 3. Trouble falling or staying asleep, or sleeping too much: not at all 4. Feeling tired or having little energy: not at all 5. Poor appetite or overeating: not at all 6. Feeling bad about yourself - or that you are a failure or have let yourself or your family down: not at all 7. Trouble concentrating on things, such as reading the newspaper or watching television: not at all 8. Moving or speaking so slowly that other people could have noticed. Or the opposite - being so fidgety or restless that you have been moving around a lot more than usual: not at all 9. Thoughts that you would be better off or of hurting yourself in some way: not at all Total score: 0 Depression Screening Interpretation: Negative Depression Screening Done: Yes 57389 - PHQ-9 Billing: Yes Source: Developed by Drs. Marvin Zavala, Carolee Flores, Frank Martinez and colleagues, with an educational alaina from [employer]. Thrive Questionnaire Date Thrive assessed: 04/25/25 I am a: Patient What is your living situation today?: I have a steady place to live Within the past 12 months, did the food you bought not last and you didn't have the money to get more?: Never true Within the past 12 months, did you worry whether your food would run out before you got money to buy more?: Never true Do you have trouble paying for medicines?: No Do you have trouble getting transportation to medical appointments?: No Do you have trouble paying your heating and electricity bill?: No Do you have trouble taking care of your child, family member or friend?: No Do you have trouble with day-to-day activities such as bathing, preparing meals, shopping, managing finances, etc.?: No Are you currently unemployed and looking for a job?: No Are you interested in more education?: No Please select the resources that you would like help with: None Currently or been in a relationship where the following occur: No concerns reported THRIVE Score: 0 AUDIT C Alcohol Use Questionnaire (AUDIT-C) 1. How often do you have a drink containing alcohol?: Monthly or less 2. How many drinks containing alcohol do you have on a typical day when you are drinking?: 1 or 2 3. How often do you have six or more drinks on one occasion?: Never Total Score: 1 Score Reviewed/Action Taken: No MARCE-7 AMB Questionnaire MARCE-7 Date MARCE - 7 assessed: 04/25/25 Feeling nervous, anxious, or on edge: 0 = Not at all Not being able to stop or control worryin = Not at all Worrying too much about different things: 0 = Not at all Trouble relaxin = Not at all Being so restless that it is hard to sit still: 0 = Not at all Becoming easily annoyed or irritable: 0 = Not at all Feeling afraid as if something awful might happen: 0 = Not at all Total MARCE-7 score (0-4 normal; 5-9 mild; 10-14 moderate; 15-21 severe): 0 Source: Developed by Drs. Marvin Zavala, Carolee Flores, Frank Martinez and colleagues, with an educational alaina from [employer]. MARCE-7 Assessment Billing MARCE-7 Assessment Tool: MARCE-7 Assessment 30432 Review of Systems Narrative Review of Systems - Constitutional: Denies fevers; reports generalized aches. - Cardiovascular: Denies shortness of breath. - Integumentary: Reports blisters and sores on the legs. - Musculoskeletal: Reports joint pain and back pain. - Genitourinary: Reports nocturia, waking every hour to hcln-ddx-j-half to urinate. - Respiratory: Denies runny nose. Const All systems reviewed & are unremarkable except as noted in HPI and below Physical exam (Primary Care) Vital Signs: Last Vital Signs Temp 97.6 F 07/25/25 10:29 Pulse 106 H 07/25/25 10:29 Resp 16 07/25/25 10:29 BP 132/75 07/25/25 10:29 Pulse Ox 96 07/25/25 10:29 Oxygen Delivery Method Room Air 07/25/25 10:29 Care Plan Goal for BP management: <140/90 at Goal BMI result Body Mass Index 33.8 BMI Assessment/Plan discussion: High BMI High, discussed plan: lifestyle, weight reduction, dietary, physical activity, alcohol moderation and other Tobacco/Smoking Status: Tobacco use Status Tobacco use date assessed 04/25/25 07/25/25 10:35 Patient Tobacco Use Status Never used Tobacco 07/25/25 10:35 PHQ-9: PHQ-9 Score PHQ-9: Total score 0 07/25/25 10:35 Depression Screening Interpretation: Negative Thrive Assessment: Date of Thrive Assessment Date Thrive assessed 04/25/25 07/25/25 10:35 Currently or been in a relationship where the following occur: No concerns reported Narrative Physical Exam Appearance: Alert. Oriented X3. No acute distress. Head: Normal external exam. Normocephalic. Atraumatic. Eyes: Pupils are equal, round, and reactive to light. Extraocular movements intact. Conjunctiva and sclera normal. Eyelids normal. Throat: Pharynx normal. Uvula midline. Moist mucous membranes. Neck: Normal inspection. Neck supple. Full range of motion. Cardiovascular: Normal heart rate and rhythm. Respiratory: No respiratory distress. Painless inspiration. Back:Full range of motion noted. Skin: Skin warm and dry. Normal skin color. Normal skin turgor. Chronic venous ulcers present on lower extremities with signs of infection and cellulitis. Pus present in wounds. No additional rashes/lesions/lacerations noted. Extremities: Bilateral pitting edema noted. Extremities exhibit normal range of motion. Neuro: Oriented X 3. No motor deficit. No sensory deficit. Reflexes normal. Results Reviewed Results Reviewed: - Labs: Pro-BNP was 188.5 and sodium was normal. - Imaging: Chest x-ray was normal. - Diagnostics: Echocardiogram on 10/08/2023 showed a mildly reduced left ventricular systolic function with an ejection fraction of 40-50% and moderate to severe hypokinesis of the inferior wall. Coding Level of Care Code Est Pt Level 4 (85443) Complex visit Add On G2211 Diagnoses Cellulitis L03.90 Chronic venous hypertension w/ulcer and inflammation involv left side I87.332 Pedal edema R60.0 CHF (congestive heart failure) I50.9 Type 2 diabetes mellitus with hemoglobin A1c goal of less than 7.0% E11.9 Arthralgia M25.50 Additional Codes MARCE-7 Assessment Billing - MARCE-7 Assessment Tool: MARCE-7 Assessment 82865 ([id number]) PHQ-9 - 54770 - PHQ-9 Billing: Yes ([id number]) Time Spent (min) 60 Assessment & Plan Assessment & Plan (1) Cellulitis: Code(s): L03.90 - Cellulitis, unspecified Category: Medical Plan: The patient presents with infected chronic venous ulcers on the left lower extremity with surrounding cellulitis. Treatment will be initiated with dual oral antibiotic therapy, including doxycycline twice a day for 10 days and Keflex four times a day for 10 days. A prescription for topical Bactroban ointment will be sent to the pharmacy. Extensive instructions were provided for home wound care, to be performed daily or every other day, involving cleaning, application of Xeroform with antibiotic ointment, and dressing. A referral will be made to a wound care clinic for an appointment within the next week and to a vascular surgeon for further evaluation. (2) Chronic venous hypertension w/ulcer and inflammation involv left side: Code(s): I87.332 - Chronic venous hypertension (idiopathic) with ulcer and inflammation of left lower extremity Category: Medical (3) Pedal edema: Code(s): R60.0 - Localized edema Category: Medical Plan: The patient's significant bilateral lower extremity edema is likely multifactorial, related to both chronic venous insufficiency and congestive heart failure, as suggested by the echocardiogram finding of a mildly reduced ejection fraction. Lasix 40 mg daily will be prescribed to manage the edema. The planned leg ultrasound will be canceled, as suspicion for a deep vein thrombosis is low given the absence of calf pain. The office will contact the patient's mathematical statistician to report the worsening edema and initiation of diuretic therapy. The patient will follow up in the office in two weeks to reassess. (4) CHF (congestive heart failure): Code(s): I50.9 - Heart failure, unspecified Category: Medical (5) Type 2 diabetes mellitus with hemoglobin A1c goal of less than 7.0%: Code(s): E11.9 - Type 2 diabetes mellitus without complications Category: Medical Plan: The patient has a history of type 2 diabetes mellitus and reports intolerance to insulin due to muscle pain. No changes were made to the patient's diabetes management plan at this visit. (6) Arthralgia: Code(s): M25.50 - Pain in unspecified joint Category: Medical Plan: The patient complains of persistent joint pain. No specific changes to management were made for this complaint during the visit. Plan Plan Patient was informed and verbally consented to the use of an ambient scribe for clinic note documentation during this visit. 1. Cellulitis And Venous Ulcers Of Lower Extremity The patient presents with infected chronic venous ulcers on the left lower extremity with surrounding cellulitis. Treatment will be initiated with dual oral antibiotic therapy, including doxycycline twice a day for 10 days and Keflex four times a day for 10 days. A prescription for topical Bactroban o intment will be sent to the pharmacy. Extensive instructions were provided for home wound care, to be performed daily or every other day, involving cleaning, application of Xeroform with antibiotic ointment, and dressing. A referral will be made to a wound care clinic for an appointment within the next week and to a vascular surgeon for further evaluation. 2. Bilateral Lower Extremity Edema And Congestive Heart Failure The patient's significant bilateral lower extremity edema is likely multifactorial, related to both chronic venous insufficiency and congestive heart failure, as suggested by the echocardiogram finding of a mildly reduced ejection fraction. Lasix 40 mg daily will be prescribed to manage the edema. The planned leg ultrasound will be canceled, as suspicion for a deep vein thrombosis is low given the absence of calf pain. The office will contact the patient's mathematical statistician to report the worsening edema and initiation of diuretic therapy. The patient will follow up in the office in two weeks to reassess. 3. Type 2 Diabetes Mellitus The patient has a history of type 2 diabetes mellitus and reports intolerance to insulin due to muscle pain. No changes were made to the patient's diabetes management plan at this visit. 4. Arthralgia The patient complains of persistent joint pain. No specific changes to management were made for this complaint during the visit. Discussion Notes I discussed with the patient that the leg wounds are chronic venous ulcers, which are infected (cellulitis) and caused by persistent leg swelling. I explained that the swelling is likely related to the patient's chronic heart disease and that managing fluid with a water pill (Lasix) is crucial. I emphasized the seriousness of the leg infection, explaining the risk of sepsis if left untreated. I recommended referrals to a wound center for specialized weekly care and to a vascular surgeon to address the underlying vein issues, and the patient agreed to these referrals. I provided detailed instructions on how to perform daily wound care at home to prevent worsening infection. We discussed the plan to start two oral antibiotics (Doxycycline and Keflex) and one topical antibiotic to treat the infection. I informed the patient that our office would contact the patient's cardiology team to provide an update and coordinate care. We agreed to cancel the scheduled leg ultrasound as a blood clot was deemed unlikely given the lack of specific symptoms. A follow-up appointment with me was scheduled for two weeks, with a goal of being seen at the wound center in one week. Orders: Referrals Wound Care Referral I87.332 - Chronic venous hypertension (idiopathic) with ulcer and inflammation of left lower extremity Vascular Surgery Referral I87.332 - Chronic venous hypertension (idiopathic) with ulcer and inflammation of left lower extremity Medications: New doxycycline hyclate 100 mg PO BID 20 tabs 0RF 10 days cephalexin 500 mg PO Q6H 40 caps 0RF 10 days mupirocin 2% 1 appl topical DAILY 22 grams 3RF Changed From furosemide (Lasix) 40 mg PO DAILY 5 tabs 0RF 5 days To furosemide (Lasix) 40 mg PO DAILY 30 tabs 3RF 30 days Patient Instructions: Patient Instructions - Take Doxycycline twice a day for 10 days. - Take Keflex four times a day for 10 days. - Take Lasix 40 mg once daily to help reduce the swelling in your legs. - Change the dressing on your leg wound every day or every other day. - To care for the wound, first clean it, then apply the antibiotic ointment (Bactroban) to the medicated gauze (Xeroform), place it on the wound, cover it with a non-stick pad, and wrap it with the roll gauze. - Our office will schedule an appointment for you at the wound care clinic and with a vascular surgeon. - We will contact your heart doctor to update them on your condition. - We have canceled the order for the ultrasound of your legs; you do not need to go to that appointment. - Follow up in this office in two weeks.
--- OUTSIDE RECORDS SUMMARY | 2025-07-25 12:22 | XMS_ITS | Clinical Summary ---
Author Organization [facility] Facility Address [address] [place] [id number] Care Team Providers Care Senior Project Coordinator Name Role Phone Edin Lee MD Primary [...] topic Insurance Medicare Medicare Care Teams Senior Project Coordinator Relationship Specialty Start Date End Date Edin Lee MD [address] [place] [address] PCP - General Internal Medicine 03/23/22
== END 2025-07-25 11:18 | disposition home or self-care (01) ==
LOC: HO.HMCSH 10:26
PROVIDERS: PCP Physician Assistant Medical; Visit Provider Physician Assistant Medical
DX: L03.90 Cellulitis, unspecified (principal); I87.332 Chronic venous hypertension (idiopathic) with ulcer and inflammation of left lower extremity; R60.0 Localized edema; I50.9 Heart failure, unspecified; E11.9 Type 2 diabetes mellitus without complications; M25.50 Pain in unspecified joint

== ENCOUNTER → 2025-07-25 10:26 | Outpatient (BNVA) | payer MEDICARE, SELFPAY | PROVIDERS: PCP Physician Assistant Medical; Visit Provider Physician Assistant Medical | DX: I87.332 Chronic venous hypertension (idiopathic) with ulcer and inflammation of left lower extremity (principal); R60.0 Localized edema; I50.9 Heart failure, unspecified; E11.9 Type 2 diabetes mellitus without complications; M25.50 Pain in unspecified joint; Z13.31 Encounter for screening for depression | CPT/HCPCS: 96127; 99212 ==

== ENCOUNTER 2025-08-01 | Outpatient (REF) | payer MEDICARE, SELFPAY ==
--- OUTSIDE RECORDS SUMMARY | 2025-09-20 11:29 | XMS_ITS | Clinical Summary ---
Author Organization [facility] Facility Address [address] [place] [id number] Care Team Providers Care Blanket Washer Name Role Phone Edin Lee MD Primary Care Provider [phone] Social History Tobacco Use Types Packs/Day Years [...] this topic Insurance Medicare Medicare Care Teams Blanket Washer Relationship Specialty Start Date End Date Edin Lee MD [address] [place] [address] PCP - General Internal Medicine 03/23/22
== END 2025-08-01 00:01 ==
LOC: CF
PROVIDERS: PCP Physician Assistant Medical; Visit Provider Student in an Organized Health Care Education/Training Program
DX: M20.22 Hallux rigidus, left foot (principal); I83.029 Varicose veins of left lower extremity with ulcer of unspecified site; L97.929 Non-pressure chronic ulcer of unspecified part of left lower leg with unspecified severity; L03.116 Cellulitis of left lower limb; Z79.2 Long term (current) use of antibiotics; R60.0 Localized edema
CPT/HCPCS: 29581; 99212

== ENCOUNTER 2025-08-01 10:29 | Outpatient (AMB) | payer MEDICARE, SELFPAY ==
--- NOTE | 2025-08-01 10:34 | A.OFFVIS_ITS ---
Intake Visit Reasons: fu Intake Note: Edin is a 75 year old male who presents today for a follow up of his Hallux rigidus of both feet. Patient reports he is doing well today. Allergies terazosin Allergy (Mild, Verified 08/01/25 10:41) rash insulin degludec (From Tresiba FlexTouch U-100) Allergy (Verified 08/01/25 10:41) Muscle Pain NSAIDS (Non-Steroidal Anti-Inflamma Adverse Reaction (Severe, Verified 08/01/25 10:41) stomach bleed semaglutide (From Ozempic) Adverse Reaction (Severe, Verified 08/01/25 10:41) Diarrhea Usgvobl-UQB-UwI Reductase Inhibitor Adverse Reaction (Severe, Verified 08/01/25 10:41) Back Pain insulin lispro (From Humalog Mix) Adverse Reaction (Intermediate, Verified 08/01/25 10:41) Weakness insulin lispro protamine (From Humalog Mix) Adverse Reaction (Intermediate, Verified 08/01/25 10:41) Weakness insulin glargine (From Toujeo SoloStar U-300 Insulin) Adverse Reaction (Mild, Verified 08/01/25 10:41) Weakness lantus Adverse Reaction (Intermediate, Uncoded 07/25/25 11:25) Weakness HPI HPI fu: Details: The patient is a 75-year-old male past medical history of diabetes mellitus type 2, coronary artery disease s/p triple bypass, returns for 2 week follow up for bilateral feet pain and diabetic care. He has been treating the ulcers on his left leg with local wound care. He was prescribed a diuretic and oral antibiotics by his PCP. He also was seen at the wound care center. Denies nausea, vomiting, fever, chills, shortness of breath, chest pain. [facility] Medical History (Updated 08/01/25 @ 21:30 by Charan Do DPM) Type 2 diabetes mellitus with hemoglobin A1c goal of less than 7.0% CHF (congestive heart failure) Cellulitis Chronic venous hypertension w/ulcer and inflammation involv left side Leg swelling Pedal edema Health care maintenance Epidermal cyst Arthralgia Umbilical hernia Peripheral edema Multinodular goiter (nontoxic) Ischemic cardiomyopathy CAD (coronary artery disease) Left leg swelling Multinodular thyroid Goiter Elevated PSA Vitamin D deficiency HLD (hyperlipidemia) HTN (hypertension) T2DM (type 2 diabetes mellitus) Surgical History Hx of heart bypass surgery History of prostate surgery H/O heart artery stent Family History Father No problems noted. Mother No problems noted. Social History Household Members: None Housing: House Are you a primary pediatric care coordinator to a significant other at home: No Do you presently have visiting nurse or other home services: No 75 years or older and lives alone: Yes Alcohol intake: current Alcohol intake frequency: holidays/special occasions only Patient Tobacco Use Status: Never used Tobacco service: Yes Current occupational status: retired Cognitive needs: Yes (walking stick) Hearing needs: No Vision needs: Yes (rx glasses) Review of Systems Const All systems reviewed & are unremarkable except as noted in HPI and below Physical Exam Extrem Other: *Bilateral Lower Extremity Focused Diabetic Foot Exam Vascular: DP/PT biphasic on Doppler bilaterally, CFT<3s to digits, TG warm to cool, +1 pitting pedal edema and +1 pitting pre-tibial edema left leg, pedal hair absent Derm: Skin: Right hallux lateral nail border with mild ingrown nail border. Left hallux nail ingrown. Left anterior mid leg 2 superficial ulcerations. 1. 4 cm x 3 cm x 0.1 cm granular. 2. 4cm x 0.2cm x 0.1cm granular. no erythema or clinical signs of infection. Interdigital spaces: Clear, no maceration or fungal infection. Nails: Dystrophic thickened discolored elongated toenails x 10. Neuro: Protective sensation grossly diminished bilateral lower extremities Msk: Deformities: Rigid hammertoe deformity 2nd and 3rd digit PIPJ bilaterally. Decreased plantar flexion at the MPJ 2 through 5 bilaterally. First MTPJ range of motion 5 degrees dorsiflexion bilaterally. No pain on range of motion. Muscle strength: 4+/5 in all muscle groups. Gait: Normal, no antalgic or steppage gait observed. Footwear Assessment: Shoes inspected; appropriate fit, no excessive wear, or foreign objects noted. Office Procedures AMB Podiatry Dressing Details of Procedure: Procedure: multi-layer compression dressing Indication: left lower extremity edema and venous ulcers Description: A compression wrap was applied using unnaboot wrap and a 4in coban. Tolerance: Patient tolerated procedure well, no immediate complications. 58085 - Multi-layer compressive dressing Procedure code (CPT) selection complete Results Reviewed Results Reviewed: X-ray Read: 07/04/2025 X-ray right foot 3 views (AP, MO, Lateral) reviewed which shows severe 1st Metatarsal-phalangeal joint joint space narrowing, severe 2nd and 3rd PIPJ narrowing with flexion deformity. Large accessory navicular. Mild plantar calcaneal spur I personally reviewed the imaging and my findings are listed above. X-ray Read: 07/04/2025 X-ray left foot 3 views (AP, MO, Lateral) reviewed which shows no severe 1st Metatarsal-phalangeal joint joint space narrowing with flattening and bone spur formation of the 1st metatarsal head. Severe 2nd and 3rd PIPJ joint space narrowing with flexion deformity. Third PIPJ subluxed. Moderate plantar calcaneal spur. I personally reviewed the imaging and my findings are listed above. Assessment & Plan Assessment & Plan (1) Venous ulcer of left leg: Code(s): I83.029 - Varicose veins of left lower extremity with ulcer of unspecified site; L97.929 - Non-pressure chronic ulcer of unspecified part of left lower leg with unspecified severity Category: Medical Plan: * Applied Xeroform, 4 x 4 gauze, unna boot, coban to the left lower extremity. (2) Cellulitis of left leg: Code(s): L03.116 - Cellulitis of left lower limb Category: Medical Plan: * Continue keflex/doxycycline (3) Swelling of both lower extremities: Code(s): M79.89 - Other specified soft tissue disorders Category: Medical Plan: * Applied unna boot compressive dressing left leg * Instructed patient to follow up with his primary care physician and his video tape editor regarding bilateral lower extremity edema which can be secondary to his CHF Coding Level of Care Code Est Pt Level 4 (35848) Diagnoses Venous ulcer of left leg I83.029; L97.929 Cellulitis of left leg L03.116 Swelling of both lower extremities M79.89 CPT Codes Podiatry Dressing - CPT: 44883 - Multi-layer compressive dressing ([id number])
== END 2025-08-01 11:02 | disposition home or self-care (01) ==
LOC: HO.HPODS 10:30
PROVIDERS: PCP Internal Medicine; Visit Provider Student in an Organized Health Care Education/Training Program
DX: I83.029 Varicose veins of left lower extremity with ulcer of unspecified site (principal); L97.929 Non-pressure chronic ulcer of unspecified part of left lower leg with unspecified severity; L03.116 Cellulitis of left lower limb; M79.89 Other specified soft tissue disorders
CPT/HCPCS: 29581; 99214

== ENCOUNTER 2025-08-08 09:24 | Outpatient (AMB) | payer MEDICARE, SELFPAY ==
--- NOTE | 2025-08-08 09:25 | MHC.OFFVIS ---
Intake Visit Reasons: 1Y PSA/PVR(set) Intake Note: Reason for Visit: PSA/PVR Follow Up Urology Meds: Finasteride, Silodosin Blood Thinners: Aspirin Labs: PSA- 2.73 BUN: 23 Creatinine: 1.15 (07/20/2025) Last PSA 2.98 (04/27/25) Imaging: None Last PVR: 0ml PVR: 50ml Watch Repairer Apprentice Required: No Accompanied by: Self / Same As Patient Allergies terazosin Allergy (Mild, Verified 08/08/25 09:28) rash insulin degludec (From Tresiba FlexTouch U-100) Allergy (Verified 08/08/25 09:28) Muscle Pain NSAIDS (Non-Steroidal Anti-Inflamma Adverse Reaction (Severe, Verified 08/08/25 09:28) stomach bleed semaglutide (From Ozempic) Adverse Reaction (Severe, Verified 08/08/25 09:28) Diarrhea Dwcenyf-CQF-BsT Reductase Inhibitor Adverse Reaction (Severe, Verified 08/08/25 09:28) Back Pain insulin lispro (From Humalog Mix) Adverse Reaction (Intermediate, Verified 08/08/25 09:28) Weakness insulin lispro protamine (From Humalog Mix) Adverse Reaction (Intermediate, Verified 08/08/25 09:28) Weakness insulin glargine (From Toujeo SoloStar U-300 Insulin) Adverse Reaction (Mild, Verified 08/08/25 09:28) Weakness lantus Adverse Reaction (Intermediate, Uncoded 08/08/25 09:28) Weakness HPI Comments Details: Edin is a pleasant male. He is a patient of Dr. Lee. Seen for the following urologic conditions - lower urinary tract symptoms - elevated PSA - urinary retention PSA stable Waking multiple times at night Is on 25 mg Jardiance. Reduced to 10 mg. Follow in three-month for review He tells me there is consideration of adding further diuretic Would recommend based on his bladder outlet issues that management with GLP 1 likely to be more beneficial Continue finasteride Wednesday, Wednesday, Wednesday Also on Rapaflo - 8 mg bedtime Lower urinary tract symptoms with elevated PSA Improvement with urination Prostate procedure - prior laser TURP Therapy - finasteride, silodosin Concurrent diagnoses include urinary retention, diabetes within insulin Variable PSA PSA 11/17 8.2, 9/21 5.0 23%F, 02/19 2.6, 01/20 3.7, 07/23 3.7, T 450, 07/24 3.0 Prostate biopsy - 2 prior negative biopsies Therapeutic plan continue PSA surveillance [facility] Medical History Type 2 diabetes mellitus with hemoglobin A1c goal of less than 7.0% CHF (congestive heart failure) Cellulitis Chronic venous hypertension w/ulcer and inflammation involv left side Leg swelling Pedal edema Health care maintenance Epidermal cyst Arthralgia Umbilical hernia Peripheral edema Multinodular goiter (nontoxic) Ischemic cardiomyopathy CAD (coronary artery disease) Left leg swelling Multinodular thyroid Goiter Elevated PSA Vitamin D deficiency HLD (hyperlipidemia) HTN (hypertension) T2DM (type 2 diabetes mellitus) Surgical History Hx of heart bypass surgery History of prostate surgery H/O heart artery stent Family History Father No problems noted. Mother No problems noted. Social History Household Members: None Housing: House Are you a primary health care recruiter to a significant other at home: No Do you presently have visiting nurse or other home services: No 75 years or older and lives alone: Yes Alcohol intake: current Alcohol intake frequency: holidays/special occasions only Patient Tobacco Use Status: Never used Tobacco service: Yes Current occupational status: retired Cognitive needs: Yes (walking stick) Hearing needs: No Vision needs: Yes (rx glasses) Review of Systems Const Denies chills and Denies fever(s) Card Reports no additional complaints and Denies syncope Resp Denies cough GI Denies abdominal pain and Denies heartburn Reports as per HPI and Denies change in libido Neuro Denies syncope Psych Denies change in libido Endo Denies change in libido Physical Exam Const General: cooperative, healthy appearing, comfortable and no acute distress Orientation/consciousness: patient oriented x3 HEENT Face and sinus: Yes normal facial exam Mouth: moist mucous membranes Neck Neck: Yes normal visual inspection, Yes full ROM and Yes trachea midline Chest Chest palpation & inspection: normal inspection of the chest Resp Effort & Inspection: normal respiratory effort, able to speak in complete sentences and no respiratory distress GI Inspection: Yes normal to inspection Back/Spine/Pelvis Cervical Spine: normal cervical lordosis Thoracic/Lumbar Spine: thoracic and lumbar spine normal to inspection Skin General skin exam: no rashes or lesions noted Neuro General: patient oriented x3, gait normal, tone normal and moves all extremities Extrem General: Yes normal to inspection and Yes capillary refill normal Office Procedures Post Void Residual Post Residual Void Post Void Residual (PVR): 50 [id number] Void Residual by ultrasound Assessment & Plan Assessment & Plan (1) Elevated PSA: Code(s): R97.20 - Elevated prostate specific antigen [PSA] Category: Medical (2) Nocturia associated with benign prostatic hyperplasia: Code(s): N40.1 - Benign prostatic hyperplasia with lower urinary tract symptoms; R35.1 - Nocturia Category: Medical Plan Reduced Jardiance to 10 mg Three-month follow-up Orders: Orders AMB Post Void Residual by ultrasound Today R33.9 - Retention of urine, unspecified Medications: Changed From empagliflozin (Jardiance) 25 mg PO DAILY 30 days 30 tabs 11RF E11.65 - Type 2 diabetes mellitus with hyperglycemia, Z79.4 - buttermaker continuous churn (current) use of insulin To empagliflozin 10 mg PO DAILY 30 tabs 2RF 30 days E11.65 - Type 2 diabetes mellitus with hyperglycemia, Z79.4 - group home (current) use of insulin Patient Instructions: This note is constructed using voice recognition software. While every effort has been made to ensure accuracy luster applicator errors may have been included. Imaging studies, laboratory and physical exam results were discussed and reviewed in detail. No major barriers to patient understanding were identified. An opportunity to ask questions regarding the treatment plan was provided. All questions were answered. The patient expressed understanding and agreement with the above treatment plan. The patient is aware they should contact our office by phone for worsening of their current condition or the appearance of new urologic symptoms. Compliance is encouraged with any medications and followup testing that is ordered. It is a privilege to participate in the urologic care of your patient. If you have any questions or concerns regarding treatment for the above conditions, or other urologic issues, please do not hesitate to contact me. The office telephone contact is [phone]. Sincerely, Dr Oscar Irby MD, [facility] - Urology Compassionate Specialist Care for the Genitourinary System Coding Level of Care Code Est Pt Level 3 (61466) Add On Problem Visit Only Diagnoses Elevated PSA R97.20 Nocturia associated with benign prostatic hyperplasia N40.1; R35.1 CPT Codes Post Residual Void - PVR CPT Code: 90843-Lkfa Void Residual by ultrasound ([id number])
== END 2025-08-08 09:49 | disposition home or self-care (01) ==
LOC: HO.HUSH 09:25
PROVIDERS: PCP Internal Medicine; Visit Provider Urology
DX: R97.20 Elevated prostate specific antigen [PSA] (principal); N40.1 Benign prostatic hyperplasia with lower urinary tract symptoms; R35.1 Nocturia
CPT/HCPCS: 99213; G2211

== ENCOUNTER → 2025-08-08 09:24 | Outpatient (BNVA) | payer MEDICARE, SELFPAY | PROVIDERS: PCP Internal Medicine; Visit Provider Urology | DX: N40.1 Benign prostatic hyperplasia with lower urinary tract symptoms (principal); R35.1 Nocturia; R97.20 Elevated prostate specific antigen [PSA] | CPT/HCPCS: 51798; 99212 ==

== ENCOUNTER 2025-08-09 10:22 | Outpatient (AMB) | payer MEDICARE, SELFPAY ==
[2025-08-09 10:33] VITALS: BP 126/62; PULSE 98; RESP 16; TEMP 36.4; O2SAT 97; BMI 33.4
--- NOTE | 2025-08-09 10:33 | A.OFFPC_ITS ---
Vital Signs 08/09/25 10:33 Height 6 ft 1 in Weight 253 lb BMI 33.4 BP 126/62 Blood Pressure Location Rt brachial Position Sitting Respiration 16 Pulse 98 Pulse Source Pulse Oximeter Temp 97.6 F Temp Source Temporal Artery Scan Pulse Oximetry (%) 97 Oxygen Delivery Method Room Air Intake Visit Reasons: 2 week follow up [place] Required: No Accompanied by: Self / Same As Patient Allergies terazosin Allergy (Mild, Verified 08/09/25 11:46) rash insulin degludec (From Tresiba FlexTouch U-100) Allergy (Verified 08/09/25 11:46) Muscle Pain NSAIDS (Non-Steroidal Anti-Inflamma Adverse Reaction (Severe, Verified 08/09/25 11:46) stomach bleed semaglutide (From Ozempic) Adverse Reaction (Severe, Verified 08/09/25 11:46) Diarrhea Hiekpob-ZKF-UaK Reductase Inhibitor Adverse Reaction (Severe, Verified 08/09/25 11:46) Back Pain insulin lispro (From Humalog Mix) Adverse Reaction (Intermediate, Verified 08/09/25 11:46) Weakness insulin lispro protamine (From Humalog Mix) Adverse Reaction (Intermediate, Verified 08/09/25 11:46) Weakness insulin glargine (From Toujeo SoloStar U-300 Insulin) Adverse Reaction (Mild, Verified 08/09/25 11:46) Weakness lantus Adverse Reaction (Intermediate, Uncoded 08/09/25 11:46) Weakness Medication List - Last Reconciled 08/09/25 by Lydia Mota PA-C aspirin 81 mg PO DAILY blood sugar diagnostic As directed empagliflozin 10 mg PO DAILY 30 days finasteride 5 mg PO BEDTIME 90 days gabapentin 100 mg PO DAILY lancets As directed metoprolol tartrate 50 mg PO BID mupirocin 2% 1 appl topical DAILY pen needle, diabetic As directed 4 times a day Repatha SureClick (evolocumab) 140 mg subcut Q2W NS sacubitril-valsartan 24-26 mg (Entresto) 1 tab PO BID silodosin 8 mg PO BEDTIME 90 days Tobacco use date assessed: 04/25/25 Dental Screening Dental Screen Date: 04/25/25 HPI HPI Comments History of Present Illness Details History of Present Illness The patient is a 75-year-old male presenting for a follow-up on his cellulitis. The patient has a history of type 2 diabetes, which is poorly controlled with a recent A1c of 14. He is currently not taking any medications for diabetes other than Jardiance 10mg. He reports side effects, including weakness and pain, from a previously tried insulin, and states that he cannot tolerate GLP-1 agonists like Ozempic or Mounjaro. He was recently taking Jardiance 25 mg, but it was reduced by another provider, Dr. Irby, due to concerns it was causing infections/thirst. The patient reports high blood sugar readings in the morning, constant thirst, waking 4-5 times a night, and a constantly dry mouth. He complains of leg pain, described as pulling and hurting when he puts pressure on it to stand up, which is consistent with diabetic neuropathy. The pain is localized to the same area as his chronic wound. Regarding his left leg cellulitis and chronic venous ulcer, a alum plant supervisor had previously wrapped the leg and the patient removed the dressing the night before this visit. He reports finishing a 10-day course of antibiotics (doxycycline and Keflex) prescribed on 07/25. He has a rescheduled appointment with the wound clinic for next week. The patient reports taking finasteride, metoprolol, Repatha, Entresto, and silodosin. He expresses uncertainty about taking a diuretic (furosemide) due to differing medical opinions. Social History - Substance Use: He denies drinking beer . - Diet: The patient's diet is a signific ant factor in his uncontrolled diabetes and he has received counseling on foods to avoid (bread, rice, pasta, cereal, potatoes, juices) and foods to increase (eggs, baked chicken, turkey, fish, beans, lentils, vegetables, nuts, seeds, and berries). - Physical Activity: He reports doing th ree-minute walks every hour throughout the day. [facility] Medical History (Updated 08/09/25 @ 11:53 by Lydia Mota PA-C) Diabetic neuropathy Type 2 diabetes mellitus with hemoglobin A1c goal of less than 7.0% CHF (congestive heart failure) Cellulitis Chronic venous hypertension w/ulcer and inflammation involv left side Leg swelling Pedal edema Health care maintenance Epidermal cyst Arthralgia Umbilical hernia Peripheral edema Multinodular goiter (nontoxic) Ischemic cardiomyopathy CAD (coronary artery disease) Left leg swelling Multinodular thyroid Goiter Elevated PSA Vitamin D deficiency HLD (hyperlipidemia) HTN (hypertension) T2DM (type 2 diabetes mellitus) Surgical History Hx of heart bypass surgery History of prostate surgery H/O heart artery stent Family History Father No problems noted. Mother No problems noted. Social History Household Members: None Housing: House Are you a primary healthcare administration internship to a significant other at home: No Do you presently have visiting nurse or other home services: No 75 years or older and lives alone: Yes Alcohol intake: current Alcohol intake frequency: holidays/special occasions only Patient Tobacco Use Status: Never used Tobacco service: Yes Current occupational status: retired Cognitive needs: Yes (walking stick) Hearing needs: No Vision needs: Yes (rx glasses) Questionnaire PHQ-9 Over the last 2 weeks, how often have you been bothered by any of the following problems? 1. Little interest or pleasure in doing things: not at all 2. Feeling down, depressed, or hopeless: not at all 3. Trouble falling or staying asleep, or sleeping too much: not at all 4. Feeling tired or having little energy: not at all 5. Poor appetite or overeating: not at all 6. Feeling bad about yourself - or that you are a failure or have let yourself or your family down: not at all 7. Trouble concentrating on things, such as reading the newspaper or watching television: not at all 8. Moving or speaking so slowly that other people could have noticed. Or the opposite - being so fidgety or restless that you have been moving around a lot m ore than usual: not at all 9. Thoughts that you would be better off or of hurting yourself in some way: not at all Total score: 0 Depression Screening Interpretation: Negative Depression Screening Done: Yes 14614 - PHQ-9 Billing: Yes Source: Developed by Drs. Marvin Zavala, Carolee Flores, Frank Martinez and colleagues, with an educational alaina from [employer]. Thrive Questionnaire Date Thrive assessed: 04/25/25 I am a: Patient What is your living situation today?: I have a steady place to live Within the past 12 months, did the food you bought not last and you didn't have the money to get more?: Never true Within the past 12 months, did you worry whether your food would run out before you got money to buy more?: Never true Do you have trouble paying for medicines?: No Do you have trouble getting transportation to medical appointments?: No Do you have trouble paying your heating and electricity bill?: No Do you have trouble taking care of your child, family member or friend?: No Do you have trouble with day-to-day activities such as bathing, preparing meals, shopping, managing finances, etc.?: No Are you currently unemployed and looking for a job?: No Are you interested in more education?: No Please select the resources that you would like help with: None Currently or been in a relationship where the following occur: No concerns reported THRIVE Score: 0 AUDIT C Alcohol Use Questionnaire (AUDIT-C) 1. How often do you have a drink containing alcohol?: Monthly or less 2. How many drinks containing alcohol do you have on a typical day when you are drinking?: 1 or 2 3. How often do you have six or more drinks on one occasion?: Never Total Score: 1 Score Reviewed/Action Taken: No MARCE-7 AMB Questionnaire MARCE-7 Date MARCE - 7 assessed: 04/25/25 Feeling nervous, anxious, or on edge: 0 = Not at all Not being able to stop or control worryin = Not at all Worrying too much about different things: 0 = Not at all Trouble relaxin = Not at all Being so restless that it is hard to sit still: 0 = Not at all Becoming easily annoyed or irritable: 0 = Not at all Feeling afraid as if something awful might happen: 0 = Not at all Total MARCE-7 score (0-4 normal; 5-9 mild; 10-14 moderate; 15-21 severe): 0 Source: Developed by Drs. Marvin Zavala, Carolee Flores, Frank Martinez and colleagues, with an educational alaina from [employer]. MARCE-7 Assessment Billing MARCE-7 Assessment Tool: MARCE-7 Assessment 93262 Review of Systems Narrative Review of Systems - General: Reports weakness as a side effect from a prior insulin. - Endocrine: Reports polydipsia and high morning blood sugar readings. - Genitourinary: Reports nocturia, getting up 4-5 times per night. - Musculoskeletal: Reports leg pain that feels like a pulling sensation upon standing. - Neurological: Describes leg pain upon standing as a pulling sensation, but denies pins and needles sensation in his legs, feet, or fingers. - HEENT: Reports xerostomia (dry mouth). Const All systems reviewed & are unremarkable except as noted in HPI and below Physical exam (Primary Care) Vital Signs: Last Vital Signs Temp 97.6 F 08/09/25 10:33 Pulse 98 08/09/25 10:33 Resp 16 08/09/25 10:33 BP 126/62 08/09/25 10:33 Pulse Ox 97 08/09/25 10:33 Oxygen Delivery Method Room Air 08/09/25 10:33 Care Plan Goal for BP management: <140/90 at Goal BMI result Body Mass Index 33.4 BMI Assessment/Plan discussion: High BMI High, discussed plan: lifestyle, weight reduction, dietary, physical activity, alcohol moderation and other Tobacco/Smoking Status: Tobacco use Status Tobacco use date assessed 04/25/25 08/09/25 10:35 Patient Tobacco Use Status Never used Tobacco 08/09/25 10:35 PHQ-9: PHQ-9 Score PHQ-9: Total score 0 08/09/25 10:55 Depression Screening Interpretation: Negative Thrive Assessment: Date of Thrive Assessment Date Thrive assessed 04/25/25 08/09/25 10:35 Currently or been in a relationship where the following occur: No concerns reported Narrative Physical Exam Appearance: Alert. Oriented X3. No acute distress. Head: Normal external exam. Normocephalic. Atraumatic. Eyes: Pupils are equal, round, and reactive to light. Extraocular movements intact. Conjunctiva and sclera normal. Eyelids normal. Throat: Pharynx normal. Uvula midline. Moist mucous membranes. Neck: Normal inspection. Neck supple. Full range of motion. Cardiovascular: Normal heart rate and rhythm. Heart sound normal. No murmurs noted. Pulses normal throughout. Respiratory: No respiratory distress. Painless inspiration. Breath sounds normal. No wheezes/rales/rhonchi noted. No accessory muscle usage noted or decreased air movement noted. Back: Full range of motion noted. Skin: Skin warm and dry. Normal skin color. Normal skin turgor. Chronic venous ulcer of the lower extremity noted, not actively infected, improving. Extremities: Extremities exhibit normal range of motion. Mild lower extremity edema. No calf tenderness is noted. Neuro: Oriented X 3. No motor deficit. No sensory deficit. Reflexes normal. Results AMB Hemoglobin A1c AMB Hemoglobin A1c 14.0 % Last Edit by MINISTERIO Tate on 08/09/25 10:5 9 Results Reviewed Results Reviewed: Laboratory Last Values Hgb A1c (Clinic) 14.0 % (4.0-6.0) H 08/09/25 10:39 - Labs: HgbA1c is 14. - PSA is stable. Coding Level of Care Code Est Pt Level 4 (92313) Add On Problem Visit Only Diagnoses Type 2 diabetes mellitus with hemoglobin A1c goal of less than 7.0% E11.9 Diabetic neuropathy E11.40 Cellulitis of left leg L03.116 Chronic venous hypertension w/ulcer and inflammation involv left side I87.332 Additional Codes MARCE-7 Assessment Billing - MARCE-7 Assessment Tool: MARCE-7 Assessment 29326 ([id number]) PHQ-9 - 43539 - PHQ-9 Billing: Yes ([id number]) Time Spent (min) 60 Assessment & Plan Assessment & Plan (1) Type 2 diabetes mellitus with hemoglobin A1c goal of less than 7.0%: Code(s): E11.9 - Type 2 diabetes mellitus without complications Category: Medical Plan: The patient's HbA1c is critically high at 14, and he is only currently on Jardiance 10 mg not on any other medication for diabetes due to side effects and allergies. I will coordinate with his engineering manager electronics and urologist (Dr. Irby) regarding medication management, particularly the recent reduction of Jardiance, as this is his only tolerated oral medication. I have provided extensive dietary counseling, including a pamphlet on natural ways to lower blood sugar, specific foods to avoid and to eat, and the importance of lifestyle changes since he is unable to take most medications. I also recommended exercise, such as walking for 10-15 minutes after meals. The patient will follow up with his engineering manager electronics on September 06. (2) Diabetic neuropathy: Code(s): E11.40 - Type 2 diabetes mellitus with diabetic neuropathy, unspecified Category: Medical Plan: The patient reports significant pain in his leg, likely neuropathic in origin due to his severe, uncontrolled diabetes. I will start him on gabapentin 100 mg daily at bedtime, with instructions to titrate up to two or three times a day if it proves helpful and is tolerated. The option of a muscle relaxer like Flexeril was discussed, but gabapentin was chosen to specifically target nerve pain. Topical Voltaren was contraindicated due to its NSAID properties. (3) Cellulitis of left leg: Code(s): L03.116 - Cellulitis of left lower limb Category: Medical Plan: The patient's left leg cellulitis is improving and does not appear actively infected. However, a chronic venous ulcer persists. I have applied a dressing to the wound. The patient has an appointment with the wound clinic next week and will also see his alum plant supervisor. I advised him to discontinue the furosemide (water pill) and focus on leg elevation for swelling, as his blood work does not support the need for a diuretic. (4) Chronic venous hypertension w/ulcer and inflammation involv left side: Code(s): I87.332 - Chronic venous hypertension (idiopathic) with ulcer and inflammation of left lower extremity Category: Medical Plan: The patient's left leg cellulitis is improving and does not appear actively infected. However, a chronic venous ulcer persists. I have applied a dressing to the wound. The patient has an appointment with the wound clinic next week and will also see his alum plant supervisor. I advised him to discontinue the furosemide (water pill) and focus on leg elevation for swelling, as his blood work does not support the need for a diuretic. Plan Plan Patient was informed and verbally consented to the use of an ambient scribe for clinic note documentation during this visit. 1. Type 2 Diabetes Mellitus With Hyperglycemia The patient's HbA1c is critically high at 14, and he is only currently on Jardiance 10 mg not on any other medication for diabetes due to side effects and allergies. I will coordinate with his engineering manager electronics and urologist (Dr. Irby) regarding medication management, particularly the recent reduction of Jardiance, as this is his only tolerated oral medication. I have provided extensive dietary counseling, including a pamphlet on natural ways to lower blood sugar, specific foods to avoid and to eat, and the importance of lifestyle changes since he is unable to take most medications. I also recommended exercise, such as walking for 10-15 minutes after meals. The patient will follow up with his engineering manager electronics on September 06. 2. Diabetic Neuropathy The patient reports significant pain in his leg, likely neuropathic in origin due to his severe, uncontrolled diabetes. I will start him on gabapentin 100 mg daily at bedtime, with instructions to titrate up to two or three times a day if it proves helpful and is tolerated. The option of a muscle relaxer like Flexeril was discussed, but gabapentin was chosen to specifically target nerve pain. Topical Voltaren was contraindicated due to its NSAID properties. 3. Cellulitis And Chronic Venous Ulcer Of Left Lower Extremity The patient's left leg cellulitis is improving and does not appear actively infected. However, a chronic venous ulcer persists. I have applied a dressing to the wound. The patient has an appointment with the wound clinic next week and will also see his alum plant supervisor. I advised him to discontinue the furosemide (water pill) and focus on leg elevation for swelling, as his blood work does not support the need for a diuretic. 4. Follow-Up The patient has upcoming appointments with endocrinology on September 06 and podiatry on the . He is scheduled to follow up with our clinic in September. His physical is scheduled for October. Discussion Notes I had a detailed discussion with the patient regarding the critical nature of his uncontrolled diabetes, emphasizing that his A1c of 14 is dangerously high and poses the most significant threat to his health. We discussed how hyperglycemia is the root cause of his symptoms of constant thirst, nocturia, and recurrent infections. I explained that since he has had side effects or allergies to nearly all diabetes medications, the responsibility for managing his blood sugar falls heavily on diet and lifestyle modifications. I provided a pamphlet and verbal instructions on dietary changes, including avoiding sugars and carbohydrates, and increasing protein and vegetables. I also stressed the importance of exercise, such as walking after meals. Regarding his leg pain, I explained it is likely diabetic neuropathy caused by high blood sugar damaging the nerves. I prescribed a new medication, gabapentin, and instructed him to start with a low dose at bedtime as it can cause sleepiness, with a plan to titrate up if effective. We discussed the uncoordinated care regarding his diabetes medications, and I informed him that I would be contacting his engineering manager electronics and urologist to ensure all providers are aligned on the treatment plan, particularly concerning the recent change to his Jardiance prescription. The patient will continue with his follow-up appointments at the wound clinic, podiatry, and endocrinology. Orders: Orders AMB Hemoglobin A1c Today E11.9 - Type 2 diabetes mellitus without complications Medications: New gabapentin 100 mg PO DAILY 90 caps 3RF Discontinued furosemide (Lasix) Discontinued Reason: Doctor's Order 40 mg PO DAILY 30 days 30 tabs 3RF Patient Instructions: Patient Instructions - Start taking gabapentin 100 mg once a day at bedtime for your leg pain. This medication can make you sleepy. If it helps after a week, you can increase to twice a day. Contact us if you increase the dose. - Follow up with the wound clinic next week for your leg ulcer. You also have an appointment with your alum plant supervisor on the . - Keep your endocrinology appointment on September 06. - You can stop taking the furosemide (water pill). Elevate your legs more often to help with the swelling. - It is very important that you change your diet to control your blood sugar. Avoid foods like bread, rice, pasta, potatoes, and juice. Eat more baked chicken, fish, eggs, beans, vegetables, and berries. - Try to be more physically active. Walk for 10-15 minutes after you eat a meal. - Continue all your other current medications including finasteride, metoprolol, Repatha, Entresto, and silodosin. - Your next appointment with this office is in September.
== END 2025-08-09 11:19 | disposition home or self-care (01) ==
LOC: HO.HMCSH 10:22
PROVIDERS: PCP Physician Assistant Medical; Visit Provider Physician Assistant Medical
DX: E11.40 Type 2 diabetes mellitus with diabetic neuropathy, unspecified (principal); L03.116 Cellulitis of left lower limb; I87.332 Chronic venous hypertension (idiopathic) with ulcer and inflammation of left lower extremity

== ENCOUNTER → 2025-08-09 10:22 | Outpatient (BNVA) | payer MEDICARE, SELFPAY | PROVIDERS: PCP Physician Assistant Medical; Visit Provider Physician Assistant Medical | DX: E11.40 Type 2 diabetes mellitus with diabetic neuropathy, unspecified (principal); L03.116 Cellulitis of left lower limb; I87.332 Chronic venous hypertension (idiopathic) with ulcer and inflammation of left lower extremity; Z13.31 Encounter for screening for depression; Z13.39 Encounter for screening examination for other mental health and behavioral disorders | CPT/HCPCS: 83036; 96127; 99212 ==

== ENCOUNTER 2025-08-15 10:20 | Outpatient (AMB) | payer MEDICARE, SELFPAY ==
--- NOTE | 2025-08-15 10:22 | MHC.OFFVIS ---
Vital Signs 08/15/25 10:26 Height 6 ft 1 in Weight 253 lb BMI 33.4 Intake Visit Reasons: Left leg ulcer Intake Note: Edin is a 75 year old male who presents to the office today for a follow up on his left leg ulcer. Pt states he is doing well. He has noticed improvements. Allergies terazosin Allergy (Mild, Verified 08/15/25 10:26) rash insulin degludec (From Tresiba FlexTouch U-100) Allergy (Verified 08/15/25 10:26) Muscle Pain NSAIDS (Non-Steroidal Anti-Inflamma Adverse Reaction (Severe, Verified 08/15/25 10:26) stomach bleed semaglutide (From Ozempic) Adverse Reaction (Severe, Verified 08/15/25 10:26) Diarrhea Zfnkojj-QLT-YvI Reductase Inhibitor Adverse Reaction (Severe, Verified 08/15/25 10:26) Back Pain insulin lispro (From Humalog Mix) Adverse Reaction (Intermediate, Verified 08/15/25 10:26) Weakness insulin lispro protamine (From Humalog Mix) Adverse Reaction (Intermediate, Verified 08/15/25 10:26) Weakness insulin glargine (From Toujeo SoloStar U-300 Insulin) Adverse Reaction (Mild, Verified 08/15/25 10:26) Weakness lantus Adverse Reaction (Intermediate, Uncoded 08/09/25 11:46) Weakness HPI HPI Left leg ulcer: Details: The patient is a 75-year-old male past medical history of diabetes mellitus type 2, coronary artery disease s/p triple bypass, returns for 2 week follow up for left leg swelling and sores. He kept his wrap on until his wound care center appointment. He has also seen his primary care physician last week. He completed his antibiotic course. Due to his urinary urgency, he is not being increasedon his diuretics. Denies nausea, vomiting, fever, chills, shortness of breath, chest pain. [facility] Medical History (Updated 08/15/25 @ 10:59 by Charan Do DPM) Diabetic neuropathy Type 2 diabetes mellitus with hemoglobin A1c goal of less than 7.0% CHF (congestive heart failure) Cellulitis Chronic venous hypertension w/ulcer and inflammation involv left side Leg swelling Pedal edema Health care maintenance Epidermal cyst Arthralgia Umbilical hernia Peripheral edema Multinodular goiter (nontoxic) Ischemic cardiomyopathy CAD (coronary artery disease) Left leg swelling Multinodular thyroid Goiter Elevated PSA Vitamin D deficiency HLD (hyperlipidemia) HTN (hypertension) T2DM (type 2 diabetes mellitus) Surgical History Hx of heart bypass surgery History of prostate surgery H/O heart artery stent Family History Father No problems noted. Mother No problems noted. Social History Household Members: None Housing: House Are you a primary lead care manager to a significant other at home: No Do you presently have visiting nurse or other home services: No 75 years or older and lives alone: Yes Alcohol intake: current Alcohol intake frequency: holidays/special occasions only Patient Tobacco Use Status: Never used Tobacco service: Yes Current occupational status: retired Cognitive needs: Yes (walking stick) Hearing needs: No Vision needs: Yes (rx glasses) Review of Systems Const All systems reviewed & are unremarkable except as noted in HPI and below Physical Exam Vital Signs: BMI result Body Mass Index 33.4 Extrem Other: *Bilateral Lower Extremity Focused Diabetic Foot Exam Vascular: DP/PT biphasic on Doppler bilaterally, CFT<3s to digits, TG warm to cool, +1 pitting pedal edema and mild pre-tibial edema left leg, pedal hair absent Derm: Skin: Left anterior mid leg 2 superficial ulcerations. 1. 2 cm x 2 cm x 0.1 cm granular/dry. Left anterior medial leg ulcer healed. Interdigital spaces: Clear, no maceration or fungal infection. Nails: Dystrophic thickened discolored elongated toenails x 10. Neuro: Protective sensation grossly diminished bilateral lower extremities Msk: Deformities: Rigid hammertoe deformity 2nd and 3rd digit PIPJ bilaterally. Decreased plantar flexion at the MPJ 2 through 5 bilaterally. First MTPJ range of motion 5 degrees dorsiflexion bilaterally. No pain on range of motion. Muscle strength: 4+/5 in all muscle groups. Office Procedures AMB Podiatry Dressing Details of Procedure: Procedure: Multilayer compressive dressing Indication: Left leg venous stasis and venous ulcers Description: Soft cast padding and 4 in Lalo bandages were applied from the base of the toes to the mid calf level. Tolerance: Patient tolerated procedure well, no immediate complications. 51130 - Multi-layer compressive dressing Procedure code (CPT) selection complete Assessment & Plan Assessment & Plan (1) Venous ulcer of left leg: Code(s): I83.029 - Varicose veins of left lower extremity with ulcer of unspecified site; L97.929 - Non-pressure chronic ulcer of unspecified part of left lower leg with unspecified severity Category: Medical Plan: Applied Xeroform, 4 x 4 gauze, soft padding, and Lalo bandage to the left lower extremity for compression. F/u in 3 weeks (2) Cellulitis of left leg: Code(s): L03.116 - Cellulitis of left lower limb Category: Medical Plan: Resolved (3) T2DM (type 2 diabetes mellitus): Code(s): E11.9 - Type 2 diabetes mellitus without complications Category: Medical Qualifiers: Diabetes mellitus care home insulin use: with terminal make up operator use Diabetes mellitus complication status: with skin complications Diabetes mellitus complication detail: with other skin ulcer Qualified Code(s): E11.622 - Type 2 diabetes mellitus with other skin ulcer; Z79.4 - terminal system operator (current) use of insulin Plan: Patient is seeing endocrinology and his PCP A1c currently remains elevated at 14% Discussed importance of glycemic control Coding Level of Care Code Est Pt Level 3 (69767) Diagnoses Venous ulcer of left leg I83.029; L97.929 Cellulitis of left leg L03.116 Type 2 diabetes mellitus with other skin ulcer, with long-term current use of insulin E11.622; Z79.4 Diabetes mellitus care home insulin use: with terminal make up operator use Diabetes mellitus complication status: with skin complications Diabetes mellitus complication detail: with other skin ulcer CPT Codes Podiatry Dressing - CPT: 22937 - Multi-layer compressive dressing ([id number]) Time Spent (min) 15
[2025-08-15 10:26] VITALS: BMI 33.4
== END 2025-08-15 10:55 | disposition home or self-care (01) ==
LOC: HO.HPODS 10:21
PROVIDERS: PCP Physician Assistant Medical; Visit Provider Student in an Organized Health Care Education/Training Program
DX: I83.029 Varicose veins of left lower extremity with ulcer of unspecified site (principal); L97.929 Non-pressure chronic ulcer of unspecified part of left lower leg with unspecified severity; L03.116 Cellulitis of left lower limb; E11.622 Type 2 diabetes mellitus with other skin ulcer; Z79.4 Long term (current) use of insulin
CPT/HCPCS: 29581; 99213

== ENCOUNTER → 2025-08-15 10:20 | Outpatient (BNVA) | payer MEDICARE, SELFPAY | PROVIDERS: PCP Physician Assistant Medical; Visit Provider Student in an Organized Health Care Education/Training Program | DX: E11.622 Type 2 diabetes mellitus with other skin ulcer (principal); Z79.4 Long term (current) use of insulin; L03.116 Cellulitis of left lower limb; I83.029 Varicose veins of left lower extremity with ulcer of unspecified site; L97.929 Non-pressure chronic ulcer of unspecified part of left lower leg with unspecified severity | CPT/HCPCS: 29581; 99212 ==

== ENCOUNTER 2025-08-29 10:21 | Outpatient (AMB) | payer MEDICARE, SELFPAY ==
--- NOTE | 2025-08-29 10:28 | MHC.OFFVIS ---
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 Patient states he gets swelling on both legs. Left is worse. Patient has been getting fluid filled blisters on his left leg. Accompanied by: Self / Same As Patient Allergies terazosin Allergy (Mild, Verified 08/29/25 10:32) rash insulin degludec (From Tresiba FlexTouch U-100) Allergy (Verified 08/29/25 10:32) Muscle Pain NSAIDS (Non-Steroidal Anti-Inflamma Adverse Reaction (Severe, Verified 08/29/25 10:32) stomach bleed semaglutide (From Ozempic) Adverse Reaction (Severe, Verified 08/29/25 10:32) Diarrhea Bfktfrm-NXL-FmP Reductase Inhibitor Adverse Reaction (Severe, Verified 08/29/25 10:32) Back Pain insulin lispro (From Humalog Mix) Adverse Reaction (Intermediate, Verified 08/29/25 10:32) Weakness insulin lispro protamine (From Humalog Mix) Adverse Reaction (Intermediate, Verified 08/29/25 10:32) Weakness insulin glargine (From Toujeo SoloStar U-300 Insulin) Adverse Reaction (Mild, Verified 08/29/25 10:32) Weakness lantus Adverse Reaction (Intermediate, Uncoded 08/09/25 11:46) Weakness HPI HPI 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 He reports swelling in his legs and a history of liquid-filled blisters, one of which ruptured after incidental contact. The subsequent wound is being managed by wound care specialists and a head of commission department with a bandage that is changed approximately weekly. He has been seeing the wound care center routinely for left leg nonhealing blisters. His past medical history is significant for diabetes mellitus, which was diagnosed around 2011, and arthritis in his feet. He denies a history of smoking. It has been affecting there daily activities including walking. It is noted more so in left leg which has wounds. Patient denies any previous venous surgery or injections. Patient denies any history of DVT/ PE. Patient denies any history of phlebitis. Trial of compression includes - multilayered compressive wrap They now present for vascular evaluation regarding their varicose veins. [facility] Medical History Diabetic neuropathy Type 2 diabetes mellitus with hemoglobin A1c goal of less than 7.0% CHF (congestive heart failure) Cellulitis Chronic venous hypertension w/ulcer and inflammation involv left side Leg swelling Pedal edema Health care maintenance Epidermal cyst Arthralgia Umbilical hernia Peripheral edema Multinodular goiter (nontoxic) Ischemic cardiomyopathy CAD (coronary artery disease) Left leg swelling Multinodular thyroid Goiter Elevated PSA Vitamin D deficiency HLD (hyperlipidemia) HTN (hypertension) T2DM (type 2 diabetes mellitus) Surgical History Hx of heart bypass surgery History of prostate surgery H/O heart artery stent Family History Father No problems noted. Mother No problems noted. Social History Household Members: None Housing: House Are you a primary customer care voice consultant to a significant other at home: No Do you presently have visiting nurse or other home services: No 75 years or older and lives alone: Yes Alcohol intake: current Alcohol intake frequency: holidays/special occasions only Patient Tobacco Use Status: Never used Tobacco service: Yes Current occupational status: retired Cognitive needs: Yes (walking stick) Hearing needs: No Vision needs: Yes (rx glasses) Review of Systems Const Reports as per HPI ENT Reports no additional complaints Card Denies chest pain, Denies chest pain at rest and Denies chest pain with activity Resp Denies chest congestion and Denies cough GI Reports no additional complaints Musc Details: pain over varicosities, aching of lower extremities, swelling, cramping, heaviness and tiredness, itching Denies abnormal gait Skin/Breast Reports pruritus and Denies wounds Neuro Reports no additional complaints and Denies abnormal gait Psych Denies no additional complaints Physical Exam Const General: cooperative, healthy appearing and comfortable Orientation/consciousness: oriented to person, oriented to place and oriented to time Neck Carotids: no bruits Chest Chest palpation & inspection: normal inspection of the chest and normal palpation of entire chest wall Resp Effort & Inspection: normal respiratory effort and able to speak in complete sentences Cardio Rate: regular rate Heart sounds: S1 normal heart sound present and S2 normal heart sound present Peripheral pulses: Peripheral pulses 2+ throughout GI Inspection: Yes normal to inspection Skin Other: +2 edema, ulcer left leg CEAP Classification C 6 active ulceration Ep - Etiology Primary As - superficial veins P - reflux General skin exam: dry skin Neuro General: oriented to person, oriented to place and oriented to time Extrem Right lower extremity: full ROM, normal capillary refill and edema Left lower extremity: full ROM, normal capillary refill and edema Psych Mental Status: mental status grossly normal Assessment & Plan Assessment & Plan (1) Varicose veins of left lower extremity with inflammation: Code(s): I83.12 - Varicose veins of left lower extremity with inflammation Category: Medical Plan: In short patient has left lower extremity venous disease with ulceration. At the current time he does have palpable dorsalis pedis pulses. I have taken the liberty of ordering venous insufficiency testing to better evaluate this. We did discuss conservative measures including compression elevation and exercise. At the current time he is in a compressive wrap. We will follow up after testing. Thank you for allowing us to assist in his care. Orders: Orders US venous duplex LE BI Today I83.12 - Varicose veins of left lower extremity with inflammation Coding Level of Care Code New Pt Level 4 (07107) Diagnoses Varicose veins of left lower extremity with inflammation I83.12
--- OUTSIDE RECORDS SUMMARY | 2025-08-29 11:27 | XMS_ITS | Clinical Summary ---
Author Organization [facility] Facility Address [address] [place] [id number] Care Team Providers Care Poacher Operator Name Role Phone Edin Lee MD Primary Care Provider [phone] Social History Tobacco Use Types Packs/Day Years [...] this topic Insurance Medicare Medicare Care Teams Poacher Operator Relationship Specialty Start Date End Date Edin Lee MD [address] [place] [address] PCP - General Internal Medicine 03/23/22
== END 2025-08-29 11:06 | disposition home or self-care (01) ==
LOC: HO.HVS 10:21
PROVIDERS: PCP Physician Assistant Medical; Visit Provider Surgery Vascular Surgery
DX: I83.12 Varicose veins of left lower extremity with inflammation (principal)
CPT/HCPCS: 99214

== ENCOUNTER → 2025-08-29 10:21 | Outpatient (BNVA) | payer MEDICARE, SELFPAY | PROVIDERS: PCP Physician Assistant Medical; Visit Provider Surgery Vascular Surgery | DX: I83.029 Varicose veins of left lower extremity with ulcer of unspecified site (principal); M79.89 Other specified soft tissue disorders; I83.12 Varicose veins of left lower extremity with inflammation | CPT/HCPCS: 99212 ==